=== PATIENT | female | born 1975 | race Caucasian/White ===

== ENCOUNTER 2022-07-03 17:05 | Inpatient (IN) | payer OTHER, SELFPAY ==
--- NOTE | 2022-07-03 17:36 | ED.GENADULT ---
HPI - General Adult General Chief complaint: Psychiatric Symptoms <BASSAM Mcgovern - Last Filed: 07/03/22 18:31> Stated complaint: crisis <BASSAM Mcgovern Last Filed: 07/03/22 18:31> Time Seen by Provider: 07/03/22 17:22 <BASSAM Mcgovern Last Filed: 07/03/22 18:31> Source: patient <BASSAM Mcgovern Last Filed: 07/03/22 18:31> Mode of arrival: ambulatory <BASSAM Mcgovern Last Filed: 07/03/22 18:31> Limitations: no limitations <BASSAM Mcgovern Last Filed: 07/03/22 18:31> History of Present Illness HPI narrative: 36-year-old female history of anxiety and depression presenting to the emergency department complaints of anxiety, depression, intermittent visual and auditory hallucinations, intermittent suicidal thoughts without particular plan worsening over the past few months. Patient reports increasing life stressors reports that her ex- hung himself and her brother recently . Patient very tearful, reports she is having hard time with coping. Patient also mentioned she was on psychiatric medications however her PCP dropped her as a patient and has not been prescribing her her medications. She has not followed by Psychiatry or therapist. She reports that time she becomes short of breath when she has anxiety attacks however denies any other medical complaints. Not short of breath at this time. Patient denies homicidal ideation. No tactile hallucinations. Denies drugs, alcohol and tobacco <BASSAM Mcgovern Last Filed: 07/03/22 18:31> Related Data Home medications: Home Medications Medication Instructions Recorded Confirmed bupropion HCl 300 mg 24 hr tablet, 300 mg PO QAM 07/03/22 07/03/22 extended release calcium carbonate 500 mg-vitamin 2 tab PO QAM 07/03/22 07/03/22 D3 10 mcg (400 unit) tablet (Calcium 500 With D) clonazepam 0.5 mg tablet 0.25 mg PO TID 07/03/22 07/03/22 gabapentin 300 mg capsule 300 mg PO BID 07/03/22 07/03/22 lamotrigine 100 mg tablet 100 mg PO BID 07/03/22 07/03/22 quetiapine 100 mg tablet 100 mg PO BID 07/03/22 07/03/22 <BASSAM Mcgovern Last Filed: 07/03/22 18:31> Allergies/adverse reactions: Allergies Allergy/AdvReac Type Severity Reaction Status Date / Time Penicillins Allergy Swelling Verified 07/03/22 18:56 <BASSAM Mcgovern Last Filed: 07/03/22 18:31> Review of Systems Review of Systems: Constitutional : No Weight loss, No Fever, No Chills, No Fatigue, No Malaise ENT/Mouth : No sore throat, No Rhinorrhea Eyes: No Eye Pain, No Swelling, No Redness Cardiovascular : No Chest Pain, No SOB, No Dyspnea on Exertion, No Orthopnea, No Edema, No Palpitations Respiratory : No Cough, No Sputum, No Wheezing Gastrointestinal : No Nausea, No Vomiting, No Diarrhea, No Constipation, No abdominal Pain, No Hematochezia, No Melena Genitourinary : No Dysuria, No Urinary Frequency, No Hematuria, Musculoskeletal : No joint pain, No Myalgias, No Joint Swelling Skin : No Skin Lesions, No rash Neuro : No Weakness, No Numbness, No Dizziness, No Headache Psych : + Anxiety/Panic, +Depression, + SI, No HI All other systems reviewed and are negative <BASSAM Mcgovern Last Filed: 07/03/22 18:31> Yes all other systems are reviewed and are negative <BASSAM Mcgovern Last Filed: 07/03/22 18:31> COUNTS INCLUDE 234 BEDS AT THE [facility] Past Medical History Attestation statement: The following information was validated with the patient. <BASSAM Mcgovern Last Filed: 07/03/22 18:31> Source: old records reviewed and nursing notes reviewed <BASSAM Mcgovern Last Filed: 07/03/22 18:31> Social History Social History: Social History Alcohol intake: never Smoked in Last 30 Days: Yes Use of substances other than those prescribed or required for medical reasons: Yes Substance Use Type: Marijuana Substance Use Frequency: Occasionally Last Used Substance: Days (ago) Any prior treatment program specific to substance use: No Advance Directives: No Advance Directives Information Provided: No <BASSAM Mcgovern - Last Filed: 07/03/22 18:31> Physical Exam ED Vital Signs: Vital Signs - 24 hr 07/03/22 17:40 07/03/22 20:33 Temperature 97.6 F 97.4 F Pulse Rate 119 H 96 Respiratory Rate 16 16 Blood Pressure 171/105 H 129/94 H Pulse Oximetry 98 99 Oxygen Delivery Method Room Air Room Air BMI result Body Mass Index 39.1 vs <BASSAM Mcgovern - Last Filed: 07/03/22 18:31> Vital Signs - 24 hr 07/03/22 17:40 07/03/22 20:33 Temperature 97.6 F 97.4 F Pulse Rate 119 H 96 Respiratory Rate 16 16 Blood Pressure 171/105 H 129/94 H Pulse Oximetry 98 99 Oxygen Delivery Method Room Air Room Air BMI result Body Mass Index 39.1 <Terrance Lockwood MD - Last Filed: 07/03/22 22:24> Appearance: Alert.? Oriented X3.? No acute distress.? Head: Normocephalic, atraumatic, no step-offs or deformities Eyes: Pupils equal, round and reactive to light.? ENT: Pharynx normal.? Neck: Normal inspection.? Neck supple.? CVS: Normal heart rate and rhythm.? Pulses normal.? Respiratory: No respiratory distress.? Breath sounds normal.? Abdomen: Soft and nontender.? Skin: Skin warm and dry.? Normal skin color.? Normal skin turgor.? Extremities: No lower extremity edema.? No calf ttp. 5/5 strength to bilateral upper and lower extremities Neuro: Oriented X 3.? No motor deficit.? No sensory deficit. CN 2-12 intact <BASSAM Mcgovern Last Filed: 07/03/22 18:31> Course Reevaluation(s) Reevaluation #1: CBC within normal limits. Chemistry unremarkable. UA without infection. Urine toxicology positive for benzodiazepines and marijuana. Negative ethanol. COVID negative At this time patient will be placed into observation to allow more time to be evaluated by the care team. At time observation was started patient common cooperative no acute distress will continue to monitor <BASSAM Mcgovern - Last Filed: 07/03/22 18:31> Time: 18:30 <BASSAM Mcgovern - Last Filed: 07/03/22 18:31> Reevaluation #2: patient is inpatient bed search <Terrance Lockwood MD - Last Filed: 07/03/22 22:24> Time: 22:24 <Terrance Lockwood MD - Last Filed: 07/03/22 22:24> Medications Administered Generic Name Dose Route Start Last Admin Trade Name Freq PRN Reason Stop Dose Admin Clonazepam 0.25 mg 07/03/22 21:00 07/03/22 20:24 Clonazepam 0.5 Mg Tablet PO 0.25 mg TID MEET Administration Gabapentin 300 mg 07/03/22 21:00 07/03/22 20:24 Gabapentin 300 Mg Capsule PO 300 mg BID MEET Administration Lamotrigine 100 mg 07/03/22 21:00 07/03/22 20:24 Lamotrigine 100 Mg Tablet PO 100 mg BID MEET Administration Quetiapine Fumarate 100 mg 07/03/22 21:00 07/03/22 20:24 Quetiapine Fumarate 100 Mg Tablet PO 100 mg BID MEET Administration Discontinued Medications Generic Name Dose Route Start Last Admin Trade Name Freq PRN Reason Stop Dose Admin Lorazepam 1 mg 07/03/22 18:30 07/03/22 18:51 Lorazepam 1 Mg Tablet PO 07/03/22 18:31 1 mg ONCE ONE Administration <BASSAM Mcgovern - Last Filed: 07/03/22 18:31> Medications Administered Generic Name Dose Route Start Last Admin Trade Name Freq PRN Reason Stop Dose Admin Clonazepam 0.25 mg 07/03/22 21:00 07/03/22 20:24 Clonazepam 0.5 Mg Tablet PO 0.25 mg TID MEET Administration Gabapentin 300 mg 07/03/22 21:00 07/03/22 20:24 Gabapentin 300 Mg Capsule PO 300 mg BID MEET Administration Lamotrigine 100 mg 07/03/22 21:00 07/03/22 20:24 Lamotrigine 100 Mg Tablet PO 100 mg BID MEET Administration Quetiapine Fumarate 100 mg 07/03/22 21:00 07/03/22 20:24 Quetiapine Fumarate 100 Mg Tablet PO 100 mg BID MEET Administration Discontinued Medications Generic Name Dose Route Start Last Admin Trade Name Freq PRN Reason Stop Dose Admin Lorazepam 1 mg 07/03/22 18:30 07/03/22 18:51 Lorazepam 1 Mg Tablet PO 07/03/22 18:31 1 mg ONCE ONE Administration <Terrance Lockwood MD - Last Filed: 07/03/22 22:24> Medical Decision Making Medical Decision Making [facility] Narrative: 1735 46-year-old female presents with anxiety, depression, intermittent suicidal ideation and hallucinations for the past few months worsening. Patient lacking outpatient providers. Physical exam benign however patient tearful. Concerns for anxiety, depression versus complicated grieving. Unlikely bipolar, schizophrenia. Will rule out polysubstance abuse. Plan medical clearance evaluation by behavioral health. Placed on a Section 12 <BASSAM Mcgovern - Last Filed: 07/03/22 18:31> Differential Diagnosis Differential Diagnoses: The differential diagnosis associated with the presentation includes <BASSAM Mcgovern - Last Filed: 07/03/22 18:31> Concerns for anxiety, depression versus complicated grieving. Unlikely bipolar, schizophrenia. Will rule out polysubstance abuse. <BASSAM Mcgovern - Last Filed: 07/03/22 18:31> Admission/Observation Consideration of admission/observation: Escalation of care including admission/observation considered <BASSAM Mcgovern - Last Filed: 07/03/22 18:31> Likely inpatient psychiatric admission <BASSAM Mcgovern - Last Filed: 07/03/22 18:31> Lab Data Result Diagrams: 07/03/22 17:48 07/03/22 17:48 <BASSAM Mcgovern - Last Filed: 07/03/22 18:31> Labs: Lab Results 07/03/22 07/03/22 07/03/22 Range/Units 17:47 17:47 17:48 WBC 10.2 (4.8-10.8) X10*3/uL RBC 4.35 (4.20-5.50) X10*6/uL Hgb 12.6 (12.0-16.0) g/dl Hct 39.2 (37.0-47.0) % MCV 90.1 (80.0-98.0) fL MCH 29.0 (27.0-33.0) pg MCHC 32.1 (31.0-35.0) g/dl RDW 13.8 (11.0-16.0) % Plt Count 386 (160-400) X10*3/uL MPV 10.3 (9.4-12.3) fL Immature Gran % (Auto) 0.4 (0.0-0.4) % Neut % (Auto) 66.7 (45-73) % Lymph % (Auto) 23.8 (20-40) % Elbert % (Auto) 5.3 (2-11) % Eos % (Auto) 3.4 (0-4) % Baso % (Auto) 0.4 (0-2) % Lymph # (Auto) 2.4 (1.2-4.9) X10*3/uL Elbert # (Auto) 0.5 (0.1-1.2) X10*3/uL Eos # (Auto) 0.4 (0.0-0.4) X10*3/uL Baso # (Auto) 0.0 (0.0-0.2) X10*3/uL Abs Immat Gran (auto) 0.04 H (0.00-0.03) X10*3/uL Absolute Neuts (auto) 6.8 (2.0-8.3) x10*3/uL Absolute Nucleated RBC 0.000 (0.0-0.012) X10*3/uL Nucleated RBC % (auto) 0.0 (0.0-0.2) /100WBC Sodium (135-145) mmol/L Potassium (3.3-5.1) mmol/L Chloride (96-108) mmol/L Carbon Dioxide (22-29) mmol/L Anion Gap (12-20) BUN (9-16) mg/dL Creatinine (0.5-1.4) mg/dL Estim Creat Clear Calc Estimated GFR Random Glucose (60-115) mg/dL Calcium (8.4-10.2) mg/dL Magnesium (1.6-2.6) mg/dL Total Bilirubin (0.0-1.0) mg/dL AST (5-31) U/L ALT (0-31) U/L Alkaline Phosphatase (39-117) U/L Total Protein (6.5-8.0) g/dL Albumin (3.5-5.0) g/dL Urine Color Yellow Urine Appearance Clear Urine pH 5.5 (5.0-9.0) Ur Specific Munson 1.020 (1.005-1.025) Urine Protein Negative (Neg-Trace) mg/dL Urine Glucose (UA) Negative (Negative) mg/dL Urine Ketones Trace (Negative) mg/dL Urine Blood Negative (Negative) Urine Nitrite Negative (Negative) Ur Leukocyte Esterase Negative (Negative) Urine Opiates Screen Not Detected (Not Detect) Urine Fentanyl Screen Not Detected (Not Detect) Ur Barbiturates Screen Not Detected (Not Detect) Ur Phencyclidine Scrn Not Detected (Not Detect) Ur Amphetamines Screen Not Detected (Not Detect) U Benzodiazepines Scrn POSITIVE H (Not Detect) Urine Cocaine Screen Not Detected (Not Detect) U Marijuana (THC) Screen POSITIVE H (Not Detect) Ethyl Alcohol mg/dL COVID-19 (JEYSON) (Negative) COVID-19 Clin Com 07/03/22 07/03/22 Range/Units 17:48 17:48 WBC (4.8-10.8) X10*3/uL RBC (4.20-5.50) X10*6/uL Hgb (12.0-16.0) g/dl Hct (37.0-47.0) % MCV (80.0-98.0) fL MCH (27.0-33.0) pg MCHC (31.0-35.0) g/dl RDW (11.0-16.0) % Plt Count (160-400) X10*3/uL MPV (9.4-12.3) fL Immature Gran % (Auto) (0.0-0.4) % Neut % (Auto) (45-73) % Lymph % (Auto) (20-40) % Elbert % (Auto) (2-11) % Eos % (Auto) (0-4) % Baso % (Auto) (0-2) % Lymph # (Auto) (1.2-4.9) X10*3/uL Elbert # (Auto) (0.1-1.2) X10*3/uL Eos # (Auto) (0.0-0.4) X10*3/uL Baso # (Auto) (0.0-0.2) X10*3/uL Abs Immat Gran (auto) (0.00-0.03) X10*3/uL Absolute Neuts (auto) (2.0-8.3) x10*3/uL Absolute Nucleated RBC (0.0-0.012) X10*3/uL Nucleated RBC % (auto) (0.0-0.2) /100WBC Sodium 141 (135-145) mmol/L Potassium 4.7 (3.3-5.1) mmol/L Chloride 105 (96-108) mmol/L Carbon Dioxide 26 (22-29) mmol/L Anion Gap 15 (12-20) BUN 16 (9-16) mg/dL Creatinine 0.86 (0.5-1.4) mg/dL Estim Creat Clear Calc 81.2 Estimated GFR > 60 Random Glucose 96 (60-115) mg/dL Calcium 9.8 (8.4-10.2) mg/dL Magnesium 2.0 (1.6-2.6) mg/dL Total Bilirubin 0.4 (0.0-1.0) mg/dL AST 17 (5-31) U/L ALT 17 (0-31) U/L Alkaline Phosphatase 155 H (39-117) U/L Total Protein 6.9 (6.5-8.0) g/dL Albumin 4.4 (3.5-5.0) g/dL Urine Color Urine Appearance Urine pH (5.0-9.0) Ur Specific Munson (1.005-1.025) Urine Protein (Neg-Trace) mg/dL Urine Glucose (UA) (Negative) mg/dL Urine Ketones (Negative) mg/dL Urine Blood (Negative) Urine Nitrite (Negative) Ur Leukocyte Esterase (Negative) Urine Opiates Screen (Not Detect) Urine Fentanyl Screen (Not Detect) Ur Barbiturates Screen (Not Detect) Ur Phencyclidine Scrn (Not Detect) Ur Amphetamines Screen (Not Detect) U Benzodiazepines Scrn (Not Detect) Urine Cocaine Screen (Not Detect) U Marijuana (THC) Screen (Not Detect) Ethyl Alcohol < 10 mg/dL COVID-19 (JEYSON) Negative (Negative) COVID-19 Clin Com See Note <BASSAM Mcgovern - Last Filed: 07/03/22 18:31> Lab Results 07/03/22 07/03/22 07/03/22 Range/Units 17:47 17:47 17:48 WBC 10.2 (4.8-10.8) X10*3/uL RBC 4.35 (4.20-5.50) X10*6/uL Hgb 12.6 (12.0-16.0) g/dl Hct 39.2 (37.0-47.0) % MCV 90.1 (80.0-98.0) fL MCH 29.0 (27.0-33.0) pg MCHC 32.1 (31.0-35.0) g/dl RDW 13.8 (11.0-16.0) % Plt Count 386 (160-400) X10*3/uL MPV 10.3 (9.4-12.3) fL Immature Gran % (Auto) 0.4 (0.0-0.4) % Neut % (Auto) 66.7 (45-73) % Lymph % (Auto) 23.8 (20-40) % Elbert % (Auto) 5.3 (2-11) % Eos % (Auto) 3.4 (0-4) % Baso % (Auto) 0.4 (0-2) % Lymph # (Auto) 2.4 (1.2-4.9) X10*3/uL Elbert # (Auto) 0.5 (0.1-1.2) X10*3/uL Eos # (Auto) 0.4 (0.0-0.4) X10*3/uL Baso # (Auto) 0.0 (0.0-0.2) X10*3/uL Abs Immat Gran (auto) 0.04 H (0.00-0.03) X10*3/uL Absolute Neuts (auto) 6.8 (2.0-8.3) x10*3/uL Absolute Nucleated RBC 0.000 (0.0-0.012) X10*3/uL Nucleated RBC % (auto) 0.0 (0.0-0.2) /100WBC Sodium (135-145) mmol/L Potassium (3.3-5.1) mmol/L Chloride (96-108) mmol/L Carbon Dioxide (22-29) mmol/L Anion Gap (12-20) BUN (9-16) mg/dL Creatinine (0.5-1.4) mg/dL Estim Creat Clear Calc Estimated GFR Random Glucose (60-115) mg/dL Calcium (8.4-10.2) mg/dL Magnesium (1.6-2.6) mg/dL Total Bilirubin (0.0-1.0) mg/dL AST (5-31) U/L ALT (0-31) U/L Alkaline Phosphatase (39-117) U/L Total Protein (6.5-8.0) g/dL Albumin (3.5-5.0) g/dL Urine Color Yellow Urine Appearance Clear Urine pH 5.5 (5.0-9.0) Ur Specific Munson 1.020 (1.005-1.025) Urine Protein Negative (Neg-Trace) mg/dL Urine Glucose (UA) Negative (Negative) mg/dL Urine Ketones Trace (Negative) mg/dL Urine Blood Negative (Negative) Urine Nitrite Negative (Negative) Ur Leukocyte Esterase Negative (Negative) Urine Opiates Screen Not Detected (Not Detect) Urine Fentanyl Screen Not Detected (Not Detect) Ur Barbiturates Screen Not Detected (Not Detect) Ur Phencyclidine Scrn Not Detected (Not Detect) Ur Amphetamines Screen Not Detected (Not Detect) U Benzodiazepines Scrn POSITIVE H (Not Detect) Urine Cocaine Screen Not Detected (Not Detect) U Marijuana (THC) Screen POSITIVE H (Not Detect) Ethyl Alcohol mg/dL COVID-19 ([facility]) (Negative) COVID-19 Clin Com 07/03/22 07/03/22 Range/Units 17:48 17:48 WBC (4.8-10.8) X10*3/uL RBC (4.20-5.50) X10*6/uL Hgb (12.0-16.0) g/dl Hct (37.0-47.0) % MCV (80.0-98.0) fL MCH (27.0-33.0) pg MCHC (31.0-35.0) g/dl RDW (11.0-16.0) % Plt Count (160-400) X10*3/uL MPV (9.4-12.3) fL Immature Gran % (Auto) (0.0-0.4) % Neut % (Auto) (45-73) % Lymph % (Auto) (20-40) % Elbert % (Auto) (2-11) % Eos % (Auto) (0-4) % Baso % (Auto) (0-2) % Lymph # (Auto) (1.2-4.9) X10*3/uL Elbert # (Auto) (0.1-1.2) X10*3/uL Eos # (Auto) (0.0-0.4) X10*3/uL Baso # (Auto) (0.0-0.2) X10*3/uL Abs Immat Gran (auto) (0.00-0.03) X10*3/uL Absolute Neuts (auto) (2.0-8.3) x10*3/uL Absolute Nucleated RBC (0.0-0.012) X10*3/uL Nucleated RBC % (auto) (0.0-0.2) /100WBC Sodium 141 (135-145) mmol/L Potassium 4.7 (3.3-5.1) mmol/L Chloride 105 (96-108) mmol/L Carbon Dioxide 26 (22-29) mmol/L Anion Gap 15 (12-20) BUN 16 (9-16) mg/dL Creatinine 0.86 (0.5-1.4) mg/dL Estim Creat Clear Calc 81.2 Estimated GFR > 60 Random Glucose 96 (60-115) mg/dL Calcium 9.8 (8.4-10.2) mg/dL Magnesium 2.0 (1.6-2.6) mg/dL Total Bilirubin 0.4 (0.0-1.0) mg/dL AST 17 (5-31) U/L ALT 17 (0-31) U/L Alkaline Phosphatase 155 H (39-117) U/L Total Protein 6.9 (6.5-8.0) g/dL Albumin 4.4 (3.5-5.0) g/dL Urine Color Urine Appearance Urine pH (5.0-9.0) Ur Specific Munson (1.005-1.025) Urine Protein (Neg-Trace) mg/dL Urine Glucose (UA) (Negative) mg/dL Urine Ketones (Negative) mg/dL Urine Blood (Negative) Urine Nitrite (Negative) Ur Leukocyte Esterase (Negative) Urine Opiates Screen (Not Detect) Urine Fentanyl Screen (Not Detect) Ur Barbiturates Screen (Not Detect) Ur Phencyclidine Scrn (Not Detect) Ur Amphetamines Screen (Not Detect) U Benzodiazepines Scrn (Not Detect) Urine Cocaine Screen (Not Detect) U Marijuana (THC) Screen (Not Detect) Ethyl Alcohol < 10 mg/dL COVID-19 ([facility]) Negative (Negative) COVID-19 Clin Com See Note <Terrance Lockwood MD - Last Filed: 07/03/22 22:24> Core Measures AMI core measures followed: Yes <BASSAM Mcgovern - Last Filed: 07/03/22 18:31> Measure exclusions: not indicated <BASSAM Mcgovern - Last Filed: 07/03/22 18:31> Discharge Plan Discharge Clinical Impression: Depression, Suicidal ideation, Acute anxiety, Complicated grieving <BASSAM Mcgovern - Last Filed: 07/03/22 18:31> Patient Disposition: Still a Patient <BASSAM Mcgovern - Last Filed: 07/03/22 18:31> Prescriptions: No Action clonazepam 0.5 mg tablet 0.25 mg PO TID quetiapine 100 mg tablet 100 mg PO BID gabapentin 300 mg capsule 300 mg PO BID lamotrigine 100 mg tablet 100 mg PO BID bupropion HCl 300 mg tablet extended release 24 hr 300 mg PO QAM calcium carbonate-vitamin D3 [Calcium 500 With D] 500 mg-10 mcg (400 unit) tablet 2 tab PO QAM <BASSAM Mcgovern - Last Filed: 07/03/22 18:31> Interventions: [place]-Suicide Risk Severity Scale Last Done: 07/03/22 18:42 <BASSAM Mcgovern - Last Filed: 07/03/22 18:31>
[2022-07-03 17:40] VITALS: BP 171/105; PULSE 119; RESP 16; TEMP 36.4; O2SAT 98; BMI 39.1
[2022-07-03 17:54] LABS: MANUAL DIFF FLAG NO
[2022-07-03 17:56] LABS: Basophils Percent Auto 0.4 % (0-2); Eosinophils Absolute Auto 0.4 X10*3/uL (0.0-0.4); Eosinophils Percent Auto 3.4 % (0-4); Hematocrit 39.2 % (37.0-47.0); Hemoglobin 12.6 g/dl (12.0-16.0); Imm Gran Abs Auto 0.04 X10*3/uL (0.00-0.03); Imm Gran Pct Auto 0.4 % (0.0-0.4); Lymphocytes Absolute Auto 2.4 X10*3/uL (1.2-4.9); Lymphocytes Percent Auto 23.8 % (20-40); Mean Corpuscular HGB Conc 32.1 g/dl (31.0-35.0); Mean Corpuscular Volume 90.1 fL (80.0-98.0); Mean Platelet Volume 10.3 fL (9.4-12.3); Monocytes Absolute Auto 0.5 X10*3/uL (0.1-1.2); Monocytes Percent Auto 5.3 % (2-11); Neutrophils Absolute Auto 6.8 x10*3/uL (2.0-8.3); Neutrophils Percent Auto 66.7 % (45-73); Platelet Count 386 X10*3/uL (160-400); Red Blood Count 4.35 X10*6/uL (4.20-5.50); Red Cell Distribution Width 13.8 % (11.0-16.0); White Blood Count 10.2 X10*3/uL (4.8-10.8)
[2022-07-03 17:58] LABS: Appearance Urine Clear; Color Urine Yellow; Glucose Urine UA Negative (Negative); Leukocyte Esterase Urine Negative (Negative); Nitrite Urine Negative (Negative); PH 5.5 (5.0-9.0); Urine Blood Negative (Negative); Urine Ketones Trace mg/dL (Negative); Urine Protein Negative (Neg-Trace)
[2022-07-03 18:06] LABS: Amphetamine Screen Urine Not Detected (Not Detect); Barbiturates, Urine Not Detected (Not Detect); Benzodiazepines Screen Urine POSITIVE (Not Detect); Cannabinoid Screen Urine POSITIVE (Not Detect); Cocaine Screen Urine Not Detected (Not Detect); Fentanyl, urine Not Detected (Not Detect); Opiate Screen Urine Not Detected (Not Detect); Phencyclidine Screen Urine Not Detected (Not Detect)
[2022-07-03 18:17] LABS: COVID-19 Test Negative (Negative); IDNOW Serial# 08D9AD1C
[2022-07-03 18:21] LABS: Alanine Aminotransferase 17 U/L (0-31); Albumin Level 4.4 g/dL (3.5-5.0); Alkaline Phosphatase 155 U/L (39-117); Anion Gap 15 (12-20); Aspartate Amino Transferase 17 U/L (5-31); Bilirubin Total 0.4 mg/dL (0.0-1.0); Blood Urea Nitrogen 16 mg/dL (9-16); Calcium 9.8 mg/dL (8.4-10.2); Carbon Dioxide 26 mmol/L (22-29); Chloride 105 mmol/L (96-108); Creatinine Clr Calc Pharmacy 81.2; Estimated Glomerular Filt Rate > 60; Ethanol < 10 mg/dL; Glucose Random 96 mg/dL (60-115); Potassium 4.7 mmol/L (3.3-5.1); Sodium 141 mmol/L (135-145); Total Protein 6.9 g/dL (6.5-8.0)
--- OUTSIDE RECORDS SUMMARY | 2022-07-03 18:31 | XMS_ITS | Continuity of Care Document ---
Author Name Unknown Organization [facility] Address [address] [place] [id number] Care Team Providers Care Tierce Filler Name Role Phone Not on Staff, PCP Primary Care Physician Unavail able Encounter [facility] [place](s): 11/02/19 - 12/02/[address] [address]- [facility] Attending Physician: Ean Stanford Admitting Physician: AdmEan frye Referring Physician: AdmtrEan Allergies, Adverse Reactions, Alerts Substance Reaction Severity Status penicillin Active Immunizations Given and Recorded Vaccine Date Status Refusal Reason influenza virus vaccine, inactivated 01/11/17 Give n Medications buPROPion 300 mg/24 hours (XL) oral tablet, extended release See Instructions, TAKE 1 TABLET BY MOUTH DAILY IN THE AM FOR 30 DAYS, # 30 tablet, 2 Refills, 08/07/19 16:54:00 EDT, [facility] #[id number], 158, cm, 05/11/18 7:52:00 EDT, Height, Dry Weight Start Date: 08/07/19 Status: Ordered buPROPion 300 mg/24 hours (XL) oral tablet, extended release See Instructions, # 30 tablet, TAKE 1 TABLET BY MOUTH DAILY IN THE MORNING, [facility] #[id number] Start Date: 12/13/18 Status: Ordered clonazePAM 0.5 mg oral tablet See Instructions, # 90 tablet, TAKE 1 TABLET BY MOUTH THREE TIMES DAILY NEEDED FOR ANXIETY, [facility] #[id number] Start Date: 10/24/18 Status: Ordered clonazePAM 0.5 mg oral tablet See Instructions, TAKE 1 TABLET BY MOUTH THREE TIMES DAILY NEEDED FOR ANXIETY, # 90 tablet, 0 Refills, Soft Stop, 05/18/19 7:00:00 EDT, [facility] #[id number], DO NOT FILL BEFORE 05/18/2019, 158, cm, 05/11/18 7:52:00 EDT, Height, 91.9, kg, 07/01... Start Date: 05/18/19 Status: Ordered clonazePAM 0.5 mg oral tablet 1 tablet = 0.5 mg, By Mouth, 3 times a day, PRN Anxiety, # 90 tablet, 1 Refills, Maintenance, 11/20/19 15:43:00 EDT, Tablet, [facility] #[id number], DO NOT FILL BEFORE 08/18/2019, 158, cm, 05/11/18 7:52:00 EDT, Height, Dry Weight Start Date: 11/20/19 Stop Date: 01/19/20 Status: Ordered cloNIDine 0.1 mg oral tablet See Instructions, TAKE 1 TABLET BY MOUTH EVERY MORNING AND 2 TABLETS EVERY NIGHT AT BEDTIME, # 90 tablet, Refills 1, Tot. Refills 1, 11/20/19 15:43:00 EDT, Instructions Replace Required Details, Route to Pharmacy Electronically, [facility] #... Start Date: 11/20/19 Status: Ordered docusate sodium 100 mg oral capsule 100 mg, 1, capsule, By Mouth, 2 times a day, PRN, # 60 capsule, Refills 1, Tot. Refills 1, Maintenance, for constipation, 02/18/17 14:41:08, Route to Pharmacy Electronically, [id number], [facility] [id number] Start Date: 02/18/17 Stop Date: 03/20/17 Status: Ordered Ortho Tri-Cyclen Lo oral tablet 1 tablet, By Mouth, Daily, # 84 tablet, 4 Refills, Maintenance, 05/22/19 8:00:00 EDT, Tablet, [facility] #[id number], 1 tablet By Mouth Daily, 158, cm, 05/11/18 7:52:00 EDT, Height, 91.9, kg, 07/29/17 1:44:00 EDT, Dry Weight Start Date: 05/22/19 Status: Ordered Paragard IUD See Instructions, # 1 units, Refills 0, Tot. Refills 0, Maintenance, see instructions, 07/30/17 8:17:42 EDT, Compound Start Date: 07/30/17 Status: Ordered Multivitamins with Folic Acid 1 mg oral capsule 1 capsule, By Mouth, Daily, # 90 tablet, 6 Refills, Maintenance, 01/11/17 10:41:02, Capsule, 1 capsule By Mouth Daily Start Date: 01/11/17 Status: Ordered QUEtiapine 50 mg oral tablet 1 tablet, By Mouth, 2 times a day, # 60 tablet, 1 Refills, Maintenance, 11/20/19 15:42:00 EDT, [facility] #[id number], 158, cm, 05/11/18 7:52:00 EDT, Height, Dry Weight Start Date: 11/20/19 Stop Date: 01/19/20 Status: Ordered sertraline 100 mg oral tablet 2 tablet, By Mouth, Daily, # 60 tablet, 1 Refills, Maintenance, 11/20/19 15:43:00 EDT, [facility] #[id number], 158, cm, 05/11/18 7:52:00 EDT, Height, Dry Weight Start Date: 11/20/19 Stop Date: 01/19/20 Status: Ordered Wellbutrin XL 300 mg/24 hours oral tablet, extended release 1 tablet = 300 mg, By Mouth, Daily in AM, # 30 tablet, 1 Refills, Maintenance, 11/20/19 15:42:00 EDT, ER Tablet, [facility] #[id number], 158, cm, 05/11/18 7:52:00 EDT, Height, Dry Weight Start Date: 11/20/19 Stop Date: 01/19/20 Status: Ordered Problem List Condition Effective Dates Status Health Status Inform ant AMA - advanced maternal age( Confirmed) 1 07/28/17 Active Anxiety(Confirmed) Active Depression(Confirmed) Active PTSD (post-traumatic stress disorder)(Confirmed) Active Gestational HTN(Confirmed) Active 1Problem added by [place] [place] Social History Social History Type Response Smoking Status Never smoker; Tobacc o user in household: No entered on: 07/28/17 Sex
--- OUTSIDE RECORDS SUMMARY | 2022-07-03 18:31 | XMS_ITS | Continuity of Care Document ---
Author Name Unknown Organization [facility] ter Address [address] [place] [address]- Care Team Providers Care Tube Trailer Filler Name Role Phone Not on Staff, PCP Primary Care Physician Unavail able Encounter [facility] [place] Date(s): 04/09/22 - 05/31/[address] [address] Attending Physician: Maite Smith DO Admitting Physician: Maite Smith DO Referring Physician: Maite Smith DO Allergies, Adverse Reactions, Alerts Substance Reaction Severity Status penicillin Active Immunizations Given and Recorded Vaccine Date Status Refusal Reason influenza virus vaccine, inactivated 01/11/17 Give n Medications clonazePAM 0.5 mg oral tablet 1 tablet = 0.5 mg, By Mouth, 3 times a day, PRN Anxiety, # 90 tablet, 1 Refills, Maintenance, 11/20/19 15:43:00 EDT, Tablet, [facility] #[id number], DO NOT FILL BEFORE 08/18/2019, 158, cm, 05/11/18 7:52:00 EDT, Height, Dry Weight Start Date: 11/20/19 Stop Date: 01/19/20 Status: Ordered cloNIDine 0.1 mg oral tablet See Instructions, TAKE 1 TABLET BY MOUTH EVERY MORNING AND 2 TABLETS EVERY NIGHT AT BEDTIME, # 90 tablet, Refills 1, Tot. Refills 1, 11/20/19 15:43:00 EDT, Instructions Replace Required Details, Route to Pharmacy Electronically, [facility] #... Start Date: 11/20/19 Status: Ordered levothyroxine 0.025 mg oral tablet 1 tablet = 25 mcg, By Mouth, Daily, # 30 tablet, 0 Refills, Maintenance, 06/23/20 23:11:00 EDT, Tablet, Partial fill upon patient request if the prescription is for a schedule II opioid drug. Start Date: 06/23/20 Status: Ordered Paragard IUD See Instructions, # 1 units, Refills 0, Tot. Refills 0, Maintenance, see instructions, 07/30/17 8:17:42 EDT, Compound Start Date: 07/30/17 Status: Ordered QUEtiapine 50 mg oral tablet 2 tablet = 100 mg, By Mouth, Daily at bedtime, # 60 tablet, 1 Refills, Maintenance, 11/20/19 15:42:00 EDT, [facility] #[id number], 158, cm, 05/11/18 7:52:00 EDT, Height, Dry Weight Start Date: 11/20/19 Stop Date: 01/19/20 Status: Ordered sertraline 100 mg oral tablet 2 tablet, By Mouth, Daily, # 60 tablet, 1 Refills, Maintenance, 11/20/19 15:43:00 EDT, [facility] #[id number], 158, cm, 05/11/18 7:52:00 EDT, Height, Dry Weight Start Date: 11/20/19 Stop Date: 01/19/20 Status: Ordered Mai-Hk-Zbcdqblc oral tablet 1 tablet, By Mouth, Daily, # 84 tablet, 2 Refills, Maintenance, 07/09/20 8:05:00 EDT, [facility] #[id number], 84, TAKE 1 TABLETS BY MOUTH ONCE DAILY, 160, cm, 06/26/20 15:52:00 EDT, Height, 82, kg, 06/23/20 21:28:00 EDT, Dry Weight Start Date: 07/09/20 Status: Ordered Wellbutrin XL 300 mg/24 hours oral tablet, extended release 1 tablet = 300 mg, By Mouth, Daily in AM, # 30 tablet, 1 Refills, Maintenance, 11/20/19 15:42:00 EDT, ER Tablet, [facility] #[id number], 158, cm, 05/11/18 7:52:00 EDT, Height, Dry Weight Start Date: 11/20/19 Stop Date: 01/19/20 Status: Ordered Problem List Condition Confirmation Course Effective Dates Status Health St atus Informant Acidosis Confirmed Active AMA - advanced maternal age 1 Confirmed 07/28/17 Active Anxiety Confirmed Active Depression Confirmed Active Diarrhea Confirmed Active PTSD (post-traumatic stress disorder) Confirmed Active Gestational HTN Confirmed Active 1Problem added by Discern Expert @MISC:9 Social History Social History Type Response Smoking Status Never smoker; Tobacc o user in household: No entered on: 07/28/17 Sex Patient Care team information Care Team Personnel Name: Noemy CHAVEZ, Emilia Position: [facility] Nurse Member Role: Primary Care Nurse Name: Denae CHAVEZ, Deann Position: [facility] AMB Nurse Member Role: Primary Care Nurse Name: Not on Staff, PCP Position: [facility] Physician (General Medicine) Member Role: PCP Name: Jeremiah BORREGO, Miguel Angel Position: [facility] Renal MD Member Role: Lifetime Consulting Physician Address: Address: [address] [place] [address] [address] [facility] [address] Name: Alireza Somers MD Position: [facility] Renal MD Member Role: Lifetime Consulting Physician Address: Address: [address] [place] [address] [facility] [address] Care Team Related Persons Name: ADAM BOYLE Address: home [address] [place] [address] Name: DAVID BAINS Address: [employer] Address: home [address] [place] [address] [place] Name: HEATHER BAINS Address: home [address] [place] [address]
--- OUTSIDE RECORDS SUMMARY | 2022-07-03 18:31 | XMS_ITS | Continuity of Care Document ---
Author Name Unknown Organization [facility] Address [address] [place] [address]- Care Team Providers Care Slip Mixer Name Role Phone Not on Staff, PCP Primary Care Physician Unavail able [place] [facility] [place] - 10/04/[address] [address]- [facility] Attending Physician: Not on Staff, Attending MD Allergies, Adverse Reactions, Alerts Substance Reaction Severity Status penicillin Active Immunizations Given and Recorded Vaccine Date Status Refusal Reason influenza virus vaccine, inactivated 01/11/17 Give n Medications buPROPion 300 mg/24 hours (XL) oral tablet, extended release See Instructions, TAKE 1 TABLET BY MOUTH DAILY IN THE AM FOR 30 DAYS, # 30 tablet, 2 Refills, 08/07/19 16:54:00 EDT, [facility] #[id number], 158, cm, 05/11/18 7:52:00 EDT, Height, Dry Weight Start Date: 08/07/19 Status: Ordered buPROPion 300 mg/24 hours (XL) oral tablet, extended release See Instructions, # 30 tablet, TAKE 1 TABLET BY MOUTH DAILY IN THE MORNING, [facility] #[id number] Start Date: 12/13/18 Status: Ordered clonazePAM 0.5 mg oral tablet See Instructions, # 90 tablet, TAKE 1 TABLET BY MOUTH THREE TIMES DAILY NEEDED FOR ANXIETY, [facility] #[id number] Start Date: 10/24/18 Status: Ordered clonazePAM 0.5 mg oral tablet See Instructions, TAKE 1 TABLET BY MOUTH THREE TIMES DAILY NEEDED FOR ANXIETY, # 90 tablet, 0 Refills, Soft Stop, 05/18/19 7:00:00 EDT, [facility] #[id number], DO NOT FILL BEFORE 05/18/2019, 158, cm, 05/11/18 7:52:00 EDT, Height, 91.9, kg, 07/01... Start Date: 05/18/19 Status: Ordered clonazePAM 0.5 mg oral tablet 1 tablet = 0.5 mg, By Mouth, 3 times a day, PRN Anxiety, # 90 tablet, 2 Refills, Maintenance, 08/18/19 7:00:00 EDT, Tablet, [facility] #[id number], DO NOT FILL BEFORE 08/18/2019, 158, cm, 05/11/18 7:52:00 EDT, Height, Dry Weight Start Date: 08/18/19 Stop Date: 11/16/19 Status: Ordered cloNIDine 0.1 mg oral tablet See Instructions, TAKE 1 TABLET BY MOUTH EVERY MORNING AND 2 TABLETS EVERY NIGHT AT BEDTIME, # 90 tablet, Refills 2, Tot. Refills 2, 08/07/19 16:54:00 EDT, Instructions Replace Required Details, Route to Pharmacy Electronically, [facility] #... Start Date: 08/07/19 Status: Ordered docusate sodium 100 mg oral capsule 100 mg, 1, capsule, By Mouth, 2 times a day, PRN, # 60 capsule, Refills 1, Tot. Refills 1, Maintenance, for constipation, 02/18/17 14:41:08, Route to Pharmacy Electronically, [id number], [facility] [id number] Start Date: 02/18/17 Stop Date: 03/20/17 Status: Ordered Ortho Tri-Cyclen Lo oral tablet 1 tablet, By Mouth, Daily, # 84 tablet, 4 Refills, Maintenance, 05/22/19 8:00:00 EDT, Tablet, [facility] #42559, 1 tablet By Mouth Daily, 158, cm, [...] 2 times a day, # 60 tablet, 2 Refills, Maintenance, 08/07/19 16:54:00 EDT, [facility] #[id number], 158, cm, 05/11/18 7:52:00 EDT, Height, Dry Weight Start Date: 08/07/19 Stop Date: 11/05/19 Status: Ordered sertraline 100 mg oral tablet 2 tablet, By Mouth, Daily, # 60 tablet, 2 Refills, Maintenance, 08/07/19 16:54:00 EDT, [facility] #18396, 158, cm, 05/11/18 7:52:00 EDT, Height, Dry Weight Start Date: 08/07/19 Stop Date: 11/05/19 Status: Ordered Wellbutrin XL 300 mg/24 hours oral tablet, extended release 1 tablet = 300 mg, By Mouth, Daily in AM, # 30 tablet, 0 Refills, Maintenance, 06/13/19 13:02:00 EDT, ER Tablet, [facility] #[id number], 158, cm, 05/11/18 7:52:00 EDT, Height, 91.9, kg, 181:44:00 EDT, Dry Weight Start Date: 06/13/19 Stop Date: 07/13/19 Status: Ordered Problem List Condition Effective Dates Status Health Status Inform ant AMA - advanced maternal age( Confirmed) 1 07/28/17 Active Anxiety(Confirmed) Active Depression(Confirmed) Active PTSD (post-traumatic stress disorder)(Confirmed) Active Gestational HTN(Confirmed) Active 1Problem added by Discern Expert @MIS:9 Social History Social History Type Response Smoking Status Never smoker; Tobacc o user in household: No entered on: 07/28/17 Sex
--- OUTSIDE RECORDS SUMMARY | 2022-07-03 18:31 | XMS_ITS | Continuity of Care Document ---
Author Name Unknown Organization [facility] Address [address] [place] [address]- Care Team Providers Care Spine Surgeon Name Role Phone Not on Staff, PCP Primary Care Physician Unavail able Encounter [facility] [place] Date(s): 09/05/19 - 12/02/[address] [address]- [facility] Attending Physician: Not on [...] 30 tablet, 2 Refills, 08/07/19 16:54:00 EDT, [facility] #[id number], 158, cm, 05/11/18 7:52:00 EDT, Height, Dry Weight Start Date: 08/07/19 Status: Ordered buPROPion 300 mg/24 hours (XL) oral tablet, extended release See Instructions, # 30 tablet, TAKE 1 TABLET BY MOUTH DAILY IN THE MORNING, [facility] #[id number] Start Date: 12/13/18 Status: Ordered clonazePAM 0.5 mg oral tablet See Instructions, # 90 tablet, TAKE 1 TABLET BY MOUTH THREE TIMES DAILY NEEDED FOR ANXIETY, [facility] #[id number] Start Date: 10/24/18 Status: Ordered clonazePAM 0.5 mg oral tablet See Instructions, TAKE 1 TABLET BY MOUTH THREE TIMES DAILY NEEDED FOR ANXIETY, # 90 tablet, 0 Refills, Soft Stop, 05/18/19 7:00:00 EDT, [facility] #[id number], DO NOT FILL BEFORE 05/18/2019, 158, cm, 05/11/18 7:52:00 EDT, Height, 91.9, kg, 07/01... Start Date: 05/18/19 Status: Ordered clonazePAM 0.5 mg oral tablet 1 tablet = 0.5 mg, By Mouth, 3 times a day, PRN Anxiety, # 90 tablet, 1 Refills, Maintenance, 11/20/19 15:43:00 EDT, Tablet, [facility] #[id number], DO NOT FILL BEFORE 08/18/2019, 158, cm, 05/11/18 7:52:00 EDT, Height, Dry Weight Start Date: 11/20/19 Stop Date: 01/19/20 Status: Ordered cloNIDine 0.1 mg oral tablet See Instructions, TAKE 1 TABLET BY MOUTH EVERY MORNING AND 2 TABLETS EVERY NIGHT AT BEDTIME, # 90 tablet, Refills 1, Tot. Refills 1, 11/20/19 15:43:00 EDT, Instructions Replace Required Details, Route to Pharmacy Electronically, [facility] #... Start Date: 11/20/19 Status: Ordered docusate sodium 100 mg oral capsule 100 mg, 1, capsule, By Mouth, 2 times a day, PRN, # 60 capsule, Refills 1, Tot. Refills 1, Maintenance, for constipation, 02/18/17 14:41:08, Route to Pharmacy Electronically, [id number], [facility] [id number] Start Date: 02/18/17 Stop Date: 03/20/17 Status: Ordered Ortho Tri-Cyclen Lo oral tablet 1 tablet, By Mouth, Daily, # 84 tablet, 4 Refills, Maintenance, 05/22/19 8:00:00 EDT, Tablet, [facility] #[id number], 1 tablet By Mouth Daily, 158, cm, [...] tablet, 1 Refills, Maintenance, 11/20/19 15:42:00 EDT, [facility] #[id number], 158, cm, 05/11/18 7:52:00 EDT, Height, Dry Weight Start Date: 11/20/19 Stop Date: 01/19/20 Status: Ordered sertraline 100 mg oral tablet 2 tablet, By Mouth, Daily, # 60 tablet, 1 Refills, Maintenance, 11/20/19 15:43:00 EDT, [facility] #[id number], 158, cm, 05/11/18 7:52:00 EDT, Height, Dry Weight Start Date: 11/20/19 Stop Date: 01/19/20 Status: Ordered Wellbutrin XL 300 mg/24 hours oral tablet, extended release 1 tablet = 300 mg, By Mouth, Daily in AM, # 30 tablet, 1 Refills, Maintenance, 11/20/19 15:42:00 EDT, ER Tablet, [facility] #[id number], 158, cm, 05/11/18 7:52:00 EDT, Height, Dry Weight Start Date: 11/20/19 Stop Date: 01/19/20 Status: Ordered Problem List Condition Effective Dates Status Health Status Inform ant AMA - advanced maternal age( Confirmed) 1 07/28/17 Active Anxiety(Confirmed) Active Depression(Confirmed) Active PTSD (post-traumatic stress disorder)(Confirmed) Active Gestational HTN(Confirmed) Active 1Problem added by Discern Expert @[facility]:9 Social History Social History Type Response Smoking Status Never smoker; Tobacc o user in household: No entered on: 07/28/17 Sex
--- OUTSIDE RECORDS SUMMARY | 2022-07-03 18:31 | XMS_ITS | Continuity of Care Document ---
Author Name Unknown Organization [facility] ter Address [address] [place] [address]- Care Team Providers Care Assistant Golf Professional Name Role Phone Not on Staff, PCP Primary Care Physician Unavail able [place] [facility] [place] - 06/28/[address] [address]- Encounter Diagnosis Anxiety(Final) - 06/28/22 Depression(Final) - 06/28/22 Prescription refill(Final) - 06/28/22 Discharge Disposition: A-D/C Home Attending Physician: Doc Turner MD Admitting Physician: Doc Turner MD Referring Physician: Not on Staff, Referring MD Allergies, Adverse Reactions, Alerts Substance Reaction Severity Status penicillin Active Immunizations Given and Recorded Vaccine Date Status Refusal Reason influenza virus vaccine, inactivated 01/11/17 Give n Medications clonazePAM 0.5 mg oral tablet 1 tablet = 0.5 mg, By Mouth, 3 times a day, PRN Anxiety, # 90 tablet, 1 Refills, Maintenance, 11/20/19 15:43:00 EDT, Tablet, [facility] #[id number], DO NOT FILL BEFORE 08/18/2019, 158, cm, 05/11/18 7:52:00 EDT, Height, Dry Weight Start Date: 11/20/19 Stop Date: 01/19/20 Status: Ordered clonazePAM 0.5 mg oral tablet 0.5 tablet = 0.25 mg, By Mouth, 3 times a day, # 20 tablet, 0 Refills, Maintenance, 06/28/22 17:54:00 EDT, Tablet, [facility] #[id number], Partial fill upon patient request if the prescription is for a schedule II opioid drug., 158, cm, 06/28/22... Start Date: 06/28/22 Status: Ordered Paragard IUD See Instructions, # 1 units, Refills 0, Tot. Refills 0, Maintenance, see instructions, 07/30/17 8:17:42 EDT, Compound Start Date: 07/30/17 Status: Ordered QUEtiapine 50 mg oral tablet 2 tablet = 100 mg, By Mouth, Daily at bedtime, # 60 tablet, 1 Refills, Maintenance, 11/20/19 15:42:00 EDT, [facility] #[id number], 158, cm, 05/11/18 7:52:00 EDT, Height, Dry Weight Start Date: 11/20/19 Stop Date: 01/19/20 Status: Ordered SEROquel 100 mg oral tablet 100 mg, 1, tablet, By Mouth, 2 times a day, # 60 tablet, Refills 0, Tot. Refills 0, Maintenance, 06/28/22 17:54:00 EDT, Route to Pharmacy Electronically, [facility] #[id number], Partial fill upon patient request if the prescription is for a sched... Start Date: 06/28/22 Status: Ordered sertraline 100 mg oral tablet 2 tablet, By Mouth, Daily, # 60 tablet, 1 Refills, Maintenance, 11/20/19 15:43:00 EDT, [facility] #[id number], 158, cm, 05/11/18 7:52:00 EDT, Height, Dry Weight Start Date: 11/20/19 Stop Date: 01/19/20 Status: Ordered Lwv-Sg-Bzhnbbni oral tablet 1 tablet, By Mouth, Daily, # 84 tablet, 2 Refills, Maintenance, 07/09/20 8:05:00 EDT, [facility] #02284, 84, TAKE 1 TABLETS BY MOUTH ONCE DAILY, 160, cm, 06/26/20 15:52:00 EDT, Height, 82, kg, 06/23/20 21:28:00 EDT, Dry Weight Start Date: 07/09/20 Status: Ordered Wellbutrin XL 300 mg/24 hours oral tablet, extended release 1 tablet = 300 mg, By Mouth, Daily in AM, # 30 tablet, 1 Refills, Maintenance, 11/20/19 15:42:00 EDT, ER Tablet, [facility] #01226, 158, cm, 05/11/18 7:52:00 EDT, Height, Dry Weight Start Date: 11/20/19 Stop Date: 01/19/20 Status: Ordered Problem List Condition Confirmation Course Effective Dates Status Health St atus Informant Acidosis Confirmed Active AMA - advanced maternal age 1 Confirmed 07/28/17 Active Anxiety Confirmed Active Depression Confirmed Active Diarrhea Confirmed Active PTSD (post-traumatic stress disorder) Confirmed Active Gestational HTN Confirmed Active Severe obesity (BMI 35.0-39.9) with comorbidity Confirmed Active 1Problem added by Discern Expert [place] Vital Signs Most recent to oldest [Reference Range]: 1 2 3 Height 158 cm (06/28/22 6:01 PM) 158 cm (06/28/22 2:53 PM) 158 cm (06/28/22 2:52 PM) Weight 91 kg (06/28/22 6:01 PM) 91 kg (06/28/22 2:53 PM) 91 kg (06/28/22 2:52 PM) Oxygen Saturation [94-100 %] 96 % (06/28/22 6:01 PM) 96 % (06/28/22 2:52 PM) Pulse Rate [55-90 bpm] 92 bpm *H* (06/28/22 6:01 PM) 96 bpm *H* (06/28/22 2:52 PM) Body Mass Index [18.5-24.99 kg/m2] 36.45 kg/m2 *>HHI* (06/28/22 6:01 PM) 36.45 kg/m2 *>HHI* (06/28/22 2:52 PM) Blood Pressure [90-138/55-84 mm Hg] 140/100mm Hg *H* (06/28/22 6:01 PM) 145/95mm Hg *H* (06/28/22 2:52 PM) Respiratory Rate [16-30 br/min] 20 br/min (06/28/22 6:01 PM) 18 br/min (06/28/22 2:52 PM) Temperature [96.8-100.4 DegF] 98.4 DegF (06/28/22 6:01 PM) 98.2 DegF (06/28/22 2:52 PM) Mode of Delivery (Oxygen) Room air (06/28/22 6:01 PM) Room air (06/28/22 2:52 PM) Blood pressure sites Arm, right (06/28/22 6:01 PM) Arm, left (06/28/22 2:52 PM) Temperature Route Oral (06/28/22 6:01 PM) Oral (06/28/22 2:52 PM) Dry Weight 91 kg (06/28/22 6:01 PM) 91 kg (06/28/22 2:53 PM) 91 kg (06/28/22 2:52 PM) Social History Social History Type Response Smoking Status Former smoker, quit more than 30 days ago entered on: 06/28/22 Sex Note * Bushra Canela DO: PERFORM, SIGN, VERIFY Event Display: Patient Education Handout Authored Date: [id number] Patient Care team information Care Team Personnel Name: Emilia Salguero RN Position: [facility] AMB Nurse Member Role: Primary Care Nurse Name: Deann Philippe RN Position: [facility] Nurse Member Role: Primary Care Nurse Name: Not on Staff, PCP Position: [facility] Physician (General Medicine) Member Role: PCP Name: Miguel Angel Daniels MD Position: [facility] Renal MD Member Role: Lifetime Consulting Physician Address: Address: [address] [place] [address] [facility] Name: Alireza Somers MD Position: [facility] Renal MD Member Role: Lifetime Consulting Physician Address: Address: [address] [place] [address] [facility] [address] Name: Isabel Smith Position: [facility] ED RN W/OE and Tasks Member Role: Patient Care Provider Name: Doc Turner MD Position: [facility] ED Medicine MD Member Role: Admitting Physician Address: Address: [address] [place] [id number]- Name: Bushra Canela DO Position: [facility] Resident Member Role: ED Resident Address: Address: [address] [place] [id number] Name: Ree Bae Position: [facility] ED TA [facility] Member Role: Technical Applications Specialist Care Team Related Persons Name: ADAM BOYLE Address: [address] [address] Name: DAVID BAINS Address: [employer] Address: [address] [address] Name: HEATHER BAINS Address: [address] [address]
[2022-07-03] MEDS: LORazepam 1 MG TABLET PO (18:51)
[2022-07-03] MEDS: clonazePAM 0.5 MG TABLET 0.25 MG PO (20:24)
[2022-07-03] MEDS: QUEtiapine Fumarate 100 MG TABLET PO (20:24)
[2022-07-03] MEDS: lamoTRIgine 100 MG TABLET PO (20:24)
[2022-07-03] MEDS: Gabapentin 300 MG CAPSULE PO (20:24)
[2022-07-03 20:33] VITALS: BP 129/94; PULSE 96; RESP 16; TEMP 36.3; O2SAT 99
[2022-07-03] MEDS: Acetaminophen 325 MG TABLET 975 MG PO (22:59)
[2022-07-03] MEDS: OLANZapine 10 MG TABLET PO (22:59)
[2022-07-04 06:16] VITALS: BP 118/88; PULSE 86; RESP 14; TEMP 36.6; O2SAT 96
--- NOTE | 2022-07-04 06:18 | PC.NURSE ---
Patient slept through the night, no distress observed/reported, patient reported racing thought triggering her anxiety, Olanzapine 10 mg PO administered @ 2259 with positive effect, medication compliant, behavior non concerning, disposition per care team is section 12 inpatient bed search, VSS, will continue to monitor.
[2022-07-04] MEDS: clonazePAM 0.5 MG TABLET 0.25 MG PO ×3 (09:11→21:11)
[2022-07-04] MEDS: lamoTRIgine 100 MG TABLET PO ×2 (09:11→21:12)
[2022-07-04] MEDS: buPROPion HCl XL 300 MG TAB.ER.24H PO (09:11)
[2022-07-04] MEDS: Gabapentin 300 MG CAPSULE PO ×2 (09:11→21:12)
[2022-07-04] MEDS: QUEtiapine Fumarate 100 MG TABLET PO ×2 (09:12→21:11)
[2022-07-04] MEDS: Acetaminophen 325 MG TABLET 650 MG PO (09:15)
--- NOTE | 2022-07-04 09:38 | PC.NURSE ---
Pt denies Si at this time. C/O RANGEL medicated at this time.
--- NOTE | 2022-07-04 12:47 | PC.NURSE ---
Pt C/O RANGEL and anxiety. notified. Pt states, I have a lot going on at this time.
[2022-07-04] MEDS: Ibuprofen 800 MG TABLET PO ×2 (13:33→23:03)
[2022-07-04] MEDS: LORazepam 1 MG TABLET PO (13:35)
--- NOTE | 2022-07-04 18:48 | PC.NURSE ---
Pt reporting recent loss of father of her children and her brother. Pt is tearful. Pt reports she holds a lot in. Able to express herself and make her needs known. Pt has a and a small child. 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
[2022-07-04 21:01] VITALS: BP 140/86; PULSE 100; RESP 20; TEMP 36.6; O2SAT 97
[2022-07-04] MEDS: Acetaminophen 325 MG TABLET 975 MG PO (21:12)
[2022-07-04] MEDS: OLANZapine 10 MG TABLET PO (21:25)
[2022-07-05 05:11] VITALS: BP 167/87; PULSE 90; RESP 16; TEMP 36.4; O2SAT 98
--- NOTE | 2022-07-05 06:07 | PC.NURSE ---
Patient slept through the night, no distress observed/reported, patient reported racing thought triggering her anxiety, Olanzapine 10 mg PO administered @ 2124 with positive effect, medication compliant, behavior non concerning, disposition per care team is section 12 inpatient bed search, VSS, will continue to monitor.
[2022-07-05] MEDS: LORazepam 1 MG TABLET 2 MG PO ×2 (06:47→22:27)
--- NOTE | 2022-07-05 06:50 | PC.NURSE ---
Patient reported RANGEL 10/08, BP 167/87 @ 0511, provider notified/it appears like patient is withdrawing from Benzos/ provider notified/ordered Ativan 2 mg PO/administered @ 0647, pending effect, will continue to monitor.
[2022-07-05] MEDS: clonazePAM 0.5 MG TABLET 0.25 MG PO ×3 (08:44→20:19)
[2022-07-05] MEDS: buPROPion HCl XL 300 MG TAB.ER.24H PO (08:47)
[2022-07-05] MEDS: lamoTRIgine 100 MG TABLET PO ×2 (08:47→20:19)
[2022-07-05] MEDS: QUEtiapine Fumarate 100 MG TABLET PO ×2 (08:47→20:19)
[2022-07-05] MEDS: Gabapentin 300 MG CAPSULE PO ×2 (08:47→20:19)
[2022-07-05] MEDS: Calcium + Vitamin D 250 MG TABLET 1000 MG PO (08:53)
[2022-07-05] MEDS: Nicotine 14 MG PATCH.TD24 TRANSDERMA (09:02)
--- NOTE | 2022-07-05 13:27 | PC.NURSE ---
Pt up for meals. No dangerous behaviors noted.
--- NOTE | 2022-07-05 13:34 | MHC.CARE ---
Statewide bedsearch completed. [facility] has beds but are not accepting referrals for review at this time due to unit acuity and staffing. Bedsearch exhausted for today.
[2022-07-05] MEDS: LORazepam 1 MG TABLET PO (16:14)
[2022-07-05 19:55] VITALS: BP 158/103; PULSE 104; RESP 16; TEMP 36.4; O2SAT 98
--- NOTE | 2022-07-06 | ECG_ITS ---
Test Reason : CHECK PROLLONG QT Blood Pressure : / mmHG Vent. Rate : 100 BPM Atrial Rate : 100 BPM P-R Int : 148 ms QRS Dur : 078 ms QT Int : 354 ms P-R-T Axes : 061 043 046 degrees QTc Int : 456 ms Normal sinus rhythm Normal ECG No previous ECGs available Referred By: Paco Grijalva Electronically Signed By:KENTRELL DRAKE
[2022-07-06 05:34] VITALS: BP 146/94; PULSE 115; RESP 18; TEMP 37.1; O2SAT 99
[2022-07-06] MEDS: clonazePAM 0.5 MG TABLET 0.25 MG PO ×3 (08:53→22:10)
[2022-07-06] MEDS: Gabapentin 300 MG CAPSULE PO ×2 (08:53→22:10)
[2022-07-06] MEDS: buPROPion HCl XL 300 MG TAB.ER.24H PO (08:53)
[2022-07-06] MEDS: lamoTRIgine 100 MG TABLET PO (08:54)
[2022-07-06] MEDS: LORazepam 1 MG TABLET 2 MG PO (09:16)
--- NOTE | 2022-07-06 14:50 | PHA.MEDREC ---
Pharmacy Consult ? Medication Reconciliation Pharmacy has completed the medication reconciliation. Reviewed med rec done by nursing
[2022-07-06 16:35] VITALS: BP 183/129; PULSE 97; TEMP 36.1
[2022-07-06 17:00] VITALS: BP 152/92; PULSE 86
[2022-07-06] MEDS: QUEtiapine Fumarate 100 MG TABLET PO (22:07)
[2022-07-06] MEDS: traZODone HCL 50 MG TABLET PO (22:17)
[2022-07-06] MEDS: hydrOXYzine HCL 25 MG TABLET PO (22:17)
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
[2022-07-07] MEDS: traZODone HCL 50 MG TABLET PO (00:32)
[2022-07-07] MEDS: LORazepam 1 MG TABLET 2 MG PO (02:42)
[2022-07-07] MEDS: lamoTRIgine 25 MG TABLET PO (08:41)
[2022-07-07] MEDS: clonazePAM 0.5 MG TABLET 0.25 MG PO (08:41)
[2022-07-07] MEDS: buPROPion HCl XL 300 MG TAB.ER.24H PO (08:42)
[2022-07-07] MEDS: Gabapentin 300 MG CAPSULE PO (08:42)
[2022-07-07 09:09] VITALS: BP 126/91; PULSE 98; RESP 18; TEMP 36.7; O2SAT 97
[2022-07-07 11:00] LABS: Estimated Average Glucose 105 mg/dL; Hemoglobin A1C 122.7423 umol/L; Hemoglobin A1c % 5.3 %
[2022-07-07 11:40] LABS: Cholesterol 201 mg/dL; HDL Cholesterol 50 mg/dL; LDL Cholesterol Calculated 131 mg/dl; Magnesium 1.9 mg/dL (1.6-2.6); Triglycerides 104 mg/dL
[2022-07-07] MEDS: Nicotine 14 MG PATCH.TD24 TRANSDERMA (11:54)
[2022-07-07] MEDS: Nicotine Polacrilex Lozenge 4 MG LOZENGE BUCCAL (11:55)
[2022-07-07 12:07] LABS: Folate 13.6 ng/mL (> or = 4.0); Thyroid Stimulating Hormone 3.95 uIU/mL (0.32-4.0); Vitamin B12 735 pg/mL (200-900)
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
[2022-07-07] MEDS: LORazepam 1 MG TABLET PO (15:14)
[2022-07-07 16:47] VITALS: BP 145/88; PULSE 109
[2022-07-07] MEDS: lamoTRIgine 100 MG TABLET PO (21:13)
[2022-07-07] MEDS: QUEtiapine Fumarate 200 MG TABLET PO (21:13)
[2022-07-07] MEDS: Pregabalin 50 MG CAPSULE PO (21:13)
[2022-07-07] MEDS: clonazePAM 1 MG TABLET PO (21:13)
[2022-07-08 06:00] VITALS: BP 124/73; PULSE 100; RESP 16; TEMP 36.5
[2022-07-08] MEDS: lamoTRIgine 100 MG TABLET PO (08:49)
[2022-07-08] MEDS: clonazePAM 0.5 MG TABLET PO (08:49)
[2022-07-08] MEDS: Cholecalciferol (Vitamin D3) 10 MCG TABLET PO (08:49)
[2022-07-08] MEDS: buPROPion HCl XL 300 MG TAB.ER.24H PO (08:49)
[2022-07-08] MEDS: Gabapentin 600 MG TABLET PO (08:49)
[2022-07-08] MEDS: Nicotine 14 MG PATCH.TD24 TRANSDERMA (08:49)
[2022-07-08] MEDS: Nicotine Polacrilex Lozenge 4 MG LOZENGE BUCCAL ×2 (10:35→14:17)
--- NOTE | 2022-07-08 13:01 | P.PNPSI_ITS ---
Subjective Subjective Date of Service: 07/08/22 Reason For Visit: Bipolar disorder w psychosis, SI, anxiety Subjective Notes: Conditional Voluntary Healthcare Proxy: No Guardianship: No Medical Problems Affecting Mental Status: No Interim History: Reports feeling improved being back on her usual regime. Would like to trial low dose Duryea to augment Lamictal. Considering PHP, however would like to begin her out patient care first and then will call to make her own PHP intake appt. post discharge Discussed the loss of ex today and her main thoughts on how to support her children through this time. Medication Compliance: Yes Side effects from medications: No Attending Groups: Yes Review of Systems Acute medical concerns: No Medical Review of Systems: unchanged Mental Status Exam Mental Status Exam Patient Appearance: Appropriate Patient Orientation: Person, Place, Time and Situation Level of Consciousness: Alert Patient Behavior: Appropriate, Talkative, Cooperative, Good Eye Contact and Crying Mood Description: Depressed Affect Description: Flat and Apprehensive Patient Cognition Impaired: No Ability to Follow Directions: Good Speech Pattern: Spontaneous Speech Memory Description: Intact Hallucinations: None Delusions: Not Present Perceptual Disturbances: Depersonalization and Derealization Thought Process: Racing and Rumination Thought Content: positive for Racing, positive for Perseveration and positive for Suicidal Ideation (denies) Depressive Symptoms: Increased Anxiety, Crying Spells, Loss of Int. in Activity, Feelings of Worthlessness, Hopelessness, Unhappiness, Thoughts of /Suicide (denies), Low Self Esteem and Difficulty Concentrating Abnormal Motor Activity Signs and Symptoms: Restlessness Judgement: Good Diagnostics Vital Signs (24Hr): Vital Signs - 24 hr 07/07/22 16:47 07/08/22 06:00 Temperature 97.7 F Pulse Rate 109 H 100 Respiratory Rate 16 Blood Pressure 145/88 H 124/73 Oxygen Delivery Method Room Air BMI result Body Mass Index 39.1 Labs 07/03/22 17:48 07/03/22 17:48 Labs: Laboratory Results - last 48 hr 07/07/22 07/07/22 08:19 08:19 Estimat Average Glucose 105 Hemoglobin A1c % 5.3 Magnesium 1.9 Triglycerides 104 Cholesterol 201 LDL Cholesterol, Calc 131 HDL Cholesterol 50 Vitamin B12 735 Folate 13.6 TSH 3.95 Free T4 1.10 Medications Medications Current Medications Acetaminophen (Acetaminophen 325 Mg Tablet) 650 mg PO Q6H PRN PRN Reason: Headache/Pain Mild Scale (1-3) Al Hydroxide/Mg Hydroxide (Magnesium Hydrox/Alum Hydrox 30 Ml Oral.Susp) 30 ml PO Q6H PRN PRN Reason: Heartburn/Nausea Bupropion HCl (Bupropion Hcl Xl 300 Mg Tab.Er.24h) 300 mg PO DAILY [facility] Last Admin: 07/08/22 08:49 Dose: 300 mg Clonazepam (Clonazepam 0.5 Mg Tablet) 0.5 mg PO DAILY [facility] Last Admin: 07/08/22 08:49 Dose: 0.5 mg Clonazepam (Clonazepam 1 Mg Tablet) 1 mg PO BEDTIME [facility] Last Admin: 07/07/22 21:13 Dose: 1 mg Gabapentin (Gabapentin 600 Mg Tablet) 600 mg PO DAILY [facility] Last Admin: 07/08/22 08:49 Dose: 600 mg Hydroxyzine HCl (Hydroxyzine Hcl 25 Mg Tablet) 25 mg PO Q6H PRN PRN Reason: Anxiety Last Admin: 07/06/22 22:17 Dose: 25 mg Lamotrigine (Lamotrigine 100 Mg Tablet) 100 mg PO BID [facility] Last Admin: 07/08/22 08:49 Dose: 100 mg Lorazepam (Lorazepam 1 Mg Tablet) 1 mg PO Q6H PRN PRN Reason: anxiety Last Admin: 07/07/22 15:14 Dose: 1 mg Magnesium Hydroxide (Milk Of Magnesia 30 Ml Oral.Susp) 30 ml PO DAILY PRN PRN Reason: Constipation Nicotine (Nicotine 14 Mg Patch.Td24) 14 mg TRANSDERMA DAILY [facility] Last Admin: 07/08/22 08:49 Dose: 14 mg Nicotine Polacrilex (Nicotine Polacrilex Lozenge 4 Mg Lozenge) 4 mg BUCCAL Q2H PRN PRN Reason: Nicotine Cravings Last Admin: 07/08/22 10:35 Dose: 4 mg Pharmacy Consult (Consult Rx Perform Med Rec) 1 each MISCELLANE ONCE PRN PRN Reason: Consult order Pregabalin (Pregabalin 50 Mg Capsule) 50 mg PO BEDTIME [facility] Last Admin: 07/07/22 21:13 Dose: 50 mg Quetiapine Fumarate (Quetiapine Fumarate 200 Mg Tablet) 200 mg PO BEDTIME [facility] Last Admin: 07/07/22 21:13 Dose: 200 mg Vitamin D (Cholecalciferol (Vitamin D3) 10 Mcg Tablet) 10 mcg PO DAILY [facility] Last Admin: 07/08/22 08:49 Dose: 10 mcg Allergies Allergies Allergy/AdvReac Type Severity Reaction Status Date / Time Penicillins Allergy Swelling Verified 07/03/22 18:56 Assessment & Plan Assessment & Plan (1) Bipolar disorder: Status: Acute Code(s): F31.9 - Bipolar disorder, unspecified (2) Acute stress reaction: Status: Acute Code(s): F43.0 - Acute stress reaction (3) PTSD (post-traumatic stress disorder): Status: Acute Code(s): F43.10 - Post-traumatic stress disorder, unspecified Plan 46 yo female, hx of PTSD, Bipolar Disorder, Acute Stress Reaction with the suicide of ex- Apr 2021 via hanging. Pt has been off medications as PCP will no longer prescribe. Pt has been unable to find a therapist and prescriber. Pt reported an increase in anxiety, depression, SI, auditory and visual perceptual alterations. Plan: Re-establish regime-Wellbutrin, Gabapentin, Lamictal, Seroquel, Klonopin Collateral contacts Aftercare planning New PCP appt 09/26/[address] [facility] practice Couples meeting Full milieu participation Hospital Course 07/08/22: Duryea 300 mg HS. Patient educated on: medication risk/benefits Informed Consent: understands Reason for continued inpatient stay Substantial Risk for: rapid decompensation Time Spent With Patient Time: Total time managing care of this patient today ____ minutes.
[2022-07-08 16:34] VITALS: BP 148/85; PULSE 108; TEMP 36.2
[2022-07-08] MEDS: lamoTRIgine 25 MG TABLET 150 MG PO (21:18)
[2022-07-08] MEDS: Lithium Carbonate 300 MG CAPSULE PO (21:18)
[2022-07-08] MEDS: Pregabalin 50 MG CAPSULE PO (21:18)
[2022-07-08] MEDS: QUEtiapine Fumarate 200 MG TABLET PO (21:18)
[2022-07-08] MEDS: clonazePAM 1 MG TABLET PO (21:18)
[2022-07-09] MEDS: LORazepam 1 MG TABLET PO (00:32)
[2022-07-09] MEDS: Gabapentin 600 MG TABLET PO (08:47)
[2022-07-09] MEDS: buPROPion HCl XL 300 MG TAB.ER.24H PO (08:47)
[2022-07-09] MEDS: Cholecalciferol (Vitamin D3) 10 MCG TABLET PO (08:47)
[2022-07-09] MEDS: Nicotine 14 MG PATCH.TD24 TRANSDERMA (08:47)
[2022-07-09] MEDS: clonazePAM 0.5 MG TABLET PO (08:47)
[2022-07-09] MEDS: lamoTRIgine 25 MG TABLET 150 MG PO (08:48)
[2022-07-09 08:50] VITALS: BP 131/84; PULSE 103; RESP 18; O2SAT 97
[2022-07-09 09:19] LABS: Lithium 0.14 mmol/L (0.60-1.20)
--- NOTE | 2022-07-09 16:52 | P.DS_ITS ---
DS: Providers Provider Date of Service: 07/09/22 Date of admission: 07/06/22 14:45 Date of discharge: 07/09/22 Primary care physician: Madan Physician Admitting clinician: Carola Guerra Attending physician on admission: Madan Falcon Attending physician on discharge: Madan Falcon Discharging clinician: Carola Guerra DS: Diagnosis Discharge Diagnosis (1) Bipolar disorder: Status: Acute (2) Acute stress reaction: Status: Resolved (3) PTSD (post-traumatic stress disorder): Status: Acute DS: Medications Discharge Medications Home Medications: Home Medications Medication Instructions Recorded Confirmed calcium carbonate 500 mg-vitamin 2 tab PO QAM 07/03/22 07/03/22 D3 10 mcg (400 unit) tablet (Calcium 500 With D) Previous Rx's Medication Instructions Recorded bupropion HCl 300 mg 24 hr tablet, 300 mg PO QAM #30 tabs 07/09/22 extended release cholecalciferol (vitamin D3) 10 10 mcg PO DAILY #0 tabs 07/09/22 mcg (400 unit) tablet (Vitamin D3) clonazepam 0.5 mg tablet 0.5 mg PO DAILY #14 tabs 07/09/22 clonazepam 1 mg tablet 1 mg PO BEDTIME #14 tabs 07/09/22 gabapentin 600 mg tablet 600 mg PO DAILY #30 tabs 07/09/22 lamotrigine 150 mg tablet 75 mg PO BID #60 tabs 07/09/22 (Lamictal) pregabalin 50 mg capsule (Lyrica) 50 mg PO BEDTIME #14 caps 07/09/22 quetiapine 200 mg tablet 200 mg PO BEDTIME #30 tabs 07/09/22 Mental Status Exam Mental Status Exam Patient Appearance: Appropriate Patient Orientation: Person, Place, Time and Situation Level of Consciousness: Alert Patient Behavior: Appropriate, Talkative, Cooperative, Good Eye Contact and Crying Mood Description: Depressed Affect Description: Flat and Apprehensive Patient Cognition Impaired: No Ability to Follow Directions: Good Speech Pattern: Spontaneous Speech Memory Description: Intact Hallucinations: None Delusions: Not Present Perceptual Disturbances: Depersonalization and Derealization Thought Process: Racing and Rumination Thought Content: positive for Racing, positive for Perseveration and positive for Suicidal Ideation (denies) Depressive Symptoms: Increased Anxiety, Crying Spells, Loss of Int. in Activity, Feelings of Worthlessness, Hopelessness, Unhappiness, Thoughts of /Suicide (denies), Low Self Esteem and Difficulty Concentrating Abnormal Motor Activity Signs and Symptoms: Restlessness Judgement: Good Data Data Completed and Pending Completed studies during hospitalization [Text1]: 07/03/22 07/03/22 07/03/22 17:47 17:47 17:48 WBC 10.2 RBC 4.35 Hgb 12.6 Hct 39.2 MCV 90.1 MCH 29.0 MCHC 32.1 RDW 13.8 Plt Count 386 MPV 10.3 Immature Gran % (Auto) 0.4 Neut % (Auto) 66.7 Lymph % (Auto) 23.8 Johnston % (Auto) 5.3 Eos % (Auto) 3.4 Baso % (Auto) 0.4 Lymph # (Auto) 2.4 Johnston # (Auto) 0.5 Eos # (Auto) 0.4 Baso # (Auto) 0.0 Abs Immat Gran (auto) 0.04 H Absolute Neuts (auto) 6.8 Absolute Nucleated RBC 0.000 Nucleated RBC % (auto) 0.0 Sodium Potassium Chloride Carbon Dioxide Anion Gap BUN Creatinine Estim Creat Clear Calc Estimated GFR Random Glucose Estimat Average Glucose Hemoglobin A1c % Calcium Magnesium Total Bilirubin AST ALT Alkaline Phosphatase Total Protein Albumin Triglycerides Cholesterol LDL Cholesterol, Calc HDL Cholesterol Vitamin B12 Folate TSH Free T4 Urine Color Yellow Urine Appearance Clear Urine pH 5.5 Ur Specific Naylor 1.020 Urine Protein Negative Urine Glucose (UA) Negative Urine Ketones Trace Urine Blood Negative Urine Nitrite Negative Ur Leukocyte Esterase Negative Urine Opiates Screen Not Detected Urine Fentanyl Screen Not Detected Ur Barbiturates Screen Not Detected Ur Phencyclidine Scrn Not Detected Ur Amphetamines Screen Not Detected U Benzodiazepines Scrn POSITIVE H Bogart Urine Cocaine Screen Not Detected U Marijuana (THC) Screen POSITIVE H Ethyl Alcohol COVID-19 ([facility]) COVID-19 Clin Com 07/03/22 07/03/22 07/07/22 17:48 17:48 08:19 WBC RBC Hgb Hct MCV MCH MCHC RDW Plt Count MPV Immature Gran % (Auto) Neut % (Auto) Lymph % (Auto) Johnston % (Auto) Eos % (Auto) Baso % (Auto) Lymph # (Auto) Johnston # (Auto) Eos # (Auto) Baso # (Auto) Abs Immat Gran (auto) Absolute Neuts (auto) Absolute Nucleated RBC Nucleated RBC % (auto) Sodium 141 Potassium 4.7 Chloride 105 Carbon Dioxide 26 Anion Gap 15 BUN 16 Creatinine 0.86 Estim Creat Clear Calc 81.2 Estimated GFR > 60 Random Glucose 96 Estimat Average Glucose 105 Hemoglobin A1c % 5.3 Calcium 9.8 Magnesium 2.0 Total Bilirubin 0.4 AST 17 ALT 17 Alkaline Phosphatase 155 H Total Protein 6.9 Albumin 4.4 Triglycerides Cholesterol LDL Cholesterol, Calc HDL Cholesterol Vitamin B12 Folate TSH Free T4 Urine Color Urine Appearance Urine pH Ur Specific Naylor Urine Protein Urine Glucose (UA) Urine Ketones Urine Blood Urine Nitrite Ur Leukocyte Esterase Urine Opiates Screen Urine Fentanyl Screen Ur Barbiturates Screen Ur Phencyclidine Scrn Ur Amphetamines Screen U Benzodiazepines Scrn Bogart Urine Cocaine Screen U Marijuana (THC) Screen Ethyl Alcohol < 10 COVID-19 ([facility]) Negative COVID-19 Clin Com See Note 07/07/22 07/09/22 08:19 08:10 WBC RBC Hgb Hct MCV MCH MCHC RDW Plt Count MPV Immature Gran % (Auto) Neut % (Auto) Lymph % (Auto) Johnston % (Auto) Eos % (Auto) Baso % (Auto) Lymph # (Auto) Johnston # (Auto) Eos # (Auto) Baso # (Auto) Abs Immat Gran (auto) Absolute Neuts (auto) Absolute Nucleated RBC Nucleated RBC % (auto) Sodium Potassium Chloride Carbon Dioxide Anion Gap BUN Creatinine Estim Creat Clear Calc Estimated GFR Random Glucose Estimat Average Glucose Hemoglobin A1c % Calcium Magnesium 1.9 Total Bilirubin AST ALT Alkaline Phosphatase Total Protein Albumin Triglycerides 104 Cholesterol 201 LDL Cholesterol, Calc 131 HDL Cholesterol 50 Vitamin B12 735 Folate 13.6 TSH 3.95 Free T4 1.10 Urine Color Urine Appearance Urine pH Ur Specific Naylor Urine Protein Urine Glucose (UA) Urine Ketones Urine Blood Urine Nitrite Ur Leukocyte Esterase Urine Opiates Screen Urine Fentanyl Screen Ur Barbiturates Screen Ur Phencyclidine Scrn Ur Amphetamines Screen U Benzodiazepines Scrn Bogart 0.14 L Urine Cocaine Screen U Marijuana (THC) Screen Ethyl Alcohol COVID-19 ([facility]) COVID-19 Clin Com DS: Summary Hospital Course Hospital Course: Admission to adult psychiatry for exacerbation of symptoms of Bipolar Disorder, PTSD, and Acute Grief Reaction with the recent suicide of her ex and attempting to be a support to their two children, ages 26 and 20. Rima identified several psychosocial stressors, including being discharged from her primary care practice and having her medications stopped (except Klonopin) without a clear rationale. Regime was re-established and titrated, pt used the milieu briefly to establish safety and a plan to move forward. She will attend [facility] to continue to process this loss and strengthen her coping skills. Time spent discussing smoking cessation with patient: 3 to 10 minutes Status at Discharge Functional status at discharge: independent ambulation Overall status at discharge: patient is progressing back to baseline Time Spent with Patient Time attestation: Total time managing care of this patient today ____ minutes. Time spent: Greater than 30 minutes Discharge Plan Discharge Anticipated Discharge Date/Time: 07/09/22 12:48 Patient Disposition: Home, Self-Care Discharge Diagnosis: PTSD Bipolar Disorder Grief Reaction Referrals: [facility] [Other] - 07/14/22 11:00 am (After the in- person intake you will be scheduled with future therapy and psychiatric appointment and for your medication management.) Partial Hospitalization Program [facility] [Other] - 3-5 Days (Leora will call you with an intake appointment. ) Physician,None [Primary Care Provider] - 1 Week Discharge Medications: New gabapentin 600 mg Tablet 600 mg PO DAILY Qty: 30 0RF clonazepam 0.5 mg Tablet 0.5 mg PO DAILY Qty: 14 1RF quetiapine 200 mg Tablet 200 mg PO BEDTIME Qty: 30 0RF clonazepam 1 mg Tablet 1 mg PO BEDTIME Qty: 14 1RF cholecalciferol (vitamin D3) [Vitamin D3] 10 mcg (400 unit) Tablet 10 mcg PO DAILY Qty: 0 0RF pregabalin [Lyrica] 50 mg Capsule 50 mg PO BEDTIME Qty: 14 1RF lamotrigine [Lamictal] 150 mg tablet 75 mg PO BID Qty: 60 0RF Continued calcium carbonate-vitamin D3 [Calcium 500 With D] 500 mg-10 mcg (400 unit) tablet 2 tab PO QAM bupropion HCl 300 mg tablet extended release 24 hr 300 mg PO QAM Qty: 30 0RF Discontinued clonazepam 0.5 mg tablet 0.25 mg PO TID quetiapine 100 mg tablet 100 mg PO BID gabapentin 300 mg capsule 300 mg PO BID lamotrigine 100 mg tablet 100 mg PO BID Discharge Orders: Discharge Order (Routine); Ordered 07/09/22 Ordered By: Carola Guerra Diet: Advance to usual diet Activity on Discharge: As tolerated Stand Alone Forms: Patient Portal Discharge page, Community Support Care Plan Goals: Mood and Behavioral Stabilization Health Concerns: Mood and Behavioral Stabilization Plan of Treatment: Ana Rosa LAMAS will call you with out patient appointment information. Take medications as directed Assessment: non suicidal, non homicidal, non psychotic, non manic Discharge Date/Time: 07/09/22 11:56
== END 2022-07-09 11:56 | disposition home or self-care (01) | DRG 885 ==
LOC: HO.ED 18:31 → HO.PM5 07-06 14:48
PROVIDERS: Physician Assistant; Admitting Provider Psychiatry & Neurology Psychiatry; Emergency Provider Emergency Medicine; Visit Provider Clinical Nurse Specialist Psychiatric/Mental Health, Adult
DX: F31.9 Bipolar disorder, unspecified (principal); R45.851 Suicidal ideations; F43.10 Post-traumatic stress disorder, unspecified; F17.210 Nicotine dependence, cigarettes, uncomplicated; F43.0 Acute stress reaction; Z71.6 Tobacco abuse counseling; Z20.822 Contact with and (suspected) exposure to COVID-19; Z88.0 Allergy status to penicillin; Z79.899 Other long term (current) drug therapy
CPT/HCPCS: 36415; 80053; 80061; 80178; 80307; 81003; 82607; 82746; 83036; 83735; 84439; 84443; 85025; 87635; 93005; 99285; S9485

== ENCOUNTER 2022-08-18 12:15 | Outpatient (RCR) | payer OTHER, SELFPAY ==
--- NOTE | 2022-08-05 09:23 | PC.NURSE ---
Rima did not show up to the program this morning. I called Rima and left her a message to call me back.
--- NOTE | 2022-08-05 09:48 | PC.NURSE ---
I called Rima again and left her a message to call me back. I have not heard back from Rima thus, per protocol, I reached out to her spouse Ray who is her emergency contact and left him a message to call me back.
[2022-08-06 11:07] VITALS: BP 108/76; PULSE 88; TEMP 36.9
[2022-08-06 11:09] VITALS: BMI 38.8
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
--- NOTE | 2022-08-06 16:30 | PC.ADMIT ---
Patient is a 47 year old female who was referred to [facility] by [facility] inpatient behavioral health unit where she was admitted d/t increased sxs of Bipolar d/o, PTSD, and acute grief reaction. See Integrative Assessment for more information. She reports she is losing her house at the end of the month. She reports she is selling the house now before it goes into foreclosure. Patient reports she and her have much to do and this is causing increased stress. She is unsure where they are going to live. Patient stated her feels she needs to be at [facility] and she stated she needs to be here as she has been increasingly depressed and having a difficult time getting out of bed as a result. She also reports waking up at night every hour as she is unable to shut down her thoughts as she is ruminating about things. Patient presents with depressed mood and anxious affect. She denied SI. Patient given a copy of her safety plan and I reviewed the plan with her. Awaiting patient prescriber medication list requested. [ End ]
--- NOTE | 2022-08-07 08:28 | HO.PHP ---
The clients called and stated that there was a in the family and Rima will not be attending PHP today.
--- NOTE | 2022-08-07 15:01 | HO.PHP ---
The clients case was reviewed and opened in treatment team
--- NOTE | 2022-08-10 11:41 | P.PNPSP_ITS ---
Subjective Subjective Date of Service: 08/10/22 Reason For Visit: bipolar, PTSD Medical Problems Affecting Mental Status: No Interim History: Increased anxiety, continued depression. Poor sleep. Continued Nightmares. Dissociative symptoms. Has been self isolating since her aunt last week. Racing thoughts. No SI, no safety concerns. Medication Compliance: Yes Side effects from medications: No Attending Groups: Yes Review of Systems Acute medical concerns: No Medical Review of Systems: unchanged Review of Systems Review of Systems Yes all other systems are reviewed and are negative Constitutional: Reports no additional constitutional complaints Mental Status Exam Mental Status Exam Patient Appearance: Appropriate Patient Orientation: Person, Place, Time and Situation Level of Consciousness: Appropriate and Alert Patient Behavior: Appropriate, Cooperative and Good Eye Contact Mood Description: Depressed and Anxious Affect Description: Depressed and Anxious Patient Cognition Impaired: No Ability to Follow Directions: Good Speech Pattern: Clear, Appropriate and Coherent Memory Description: Intact Delusions: Not Present Perceptual Disturbances: Depersonalization and Hallucinations (At baseline, shadows, hearing her name.) Thought Process: Intact Thought Content: positive for Intact Depressive Symptoms: Increased Anxiety, Difficulty Sleeping, Changes in Appetite (poor appetite), Loss of Int. in Activity, Hopelessness, Feelings of Guilt, Unhappiness, Increased Fatigue, Low Self Esteem, Loss of Energy and Difficulty Concentrating Judgement: Fair Diagnostics Vital Signs (24Hr): BMI result Body Mass Index 38.8 Assessment & Plan Assessment & Plan (1) Bipolar disorder: Status: Acute Code(s): F31.9 - Bipolar disorder, unspecified Assessment and Plan: Increased anxiety, continued depression. It was her daughter's 5th birthday over weekend. Neighbors through a surprise democrat. Reports not feeling well enough to talk to people at the democrat. Poor sleep. Reports that she will sleep for several hours, wakes up approximately to a.m.. Will take a p.r.n. Klonopin at that time. States that her sleep is not restful. Continued Nightmares. Discussed prazosin. Upon med reconciliation with program RN, will consider increasing dose to 4 mg. Dissociative symptoms, reports feeling as if she is outside of her body, numb. Has been self isolating since her aunt last week. Continues to struggle with multiple losses. Racing thoughts, excessive worry. Discussed increasing clonazepam to 1 mg b.i.d. in order to help address increased anxiety. We discussed increasing lurasidone at this time. She takes 120 mg, discussed increasing dose to 40 mg. No SI, no safety concerns. (2) PTSD (post-traumatic stress disorder): Status: Acute Code(s): F43.10 - Post-traumatic stress disorder, unspecified (3) Complicated grieving: Status: Acute Code(s): F43.21 - Adjustment disorder with depressed mood Plan 1. Continue with current [facility] plan of care. 2. Increase clonazepam to 1 mg b.i.d.. 3. Increase lorazepam do not to 40 mg daily. 4. Consider increasing prazosin to 4 mg at bedtime, once current dose is confirmed. 5. Continue other medications as currently prescribed. 6. Follow-up as per protocol. Patient educated on: diagnosis, medication risk/benefits and therapeutic strategies Informed Consent: understands Reason for contiued partial hosp. stay Substantial Risk for: harm to self, inability to function, rapid decompensation and med/psych decompensation Certification I certify that partial hospital treatment is medically necessary due to the symptoms and problems resulting from the patient's mental illness and the failure to treat the patient at the partial hospital level of care would likely result in the patient requiring inpatient psychiatric care which could not be prevented at a less intensive level of care. Total time managing care of this patient today ___30_ minutes. Discharge Plan Discharge Attending provider: Eros Jenkins Medications: New lurasidone 40 mg tablet 40 mg PO DAILY Qty: 14 0RF Rx Instructions: must administer with food (at least 350 calories) clonazepam 1 mg tablet 1 mg PO BID Qty: 30 0RF Discontinued clonazepam 0.5 mg Tablet 0.5 mg PO DAILY Qty: 14 1RF clonazepam 1 mg Tablet 1 mg PO BEDTIME Qty: 14 1RF No Action calcium carbonate-vitamin D3 [Calcium 500 With D] 500 mg-10 mcg (400 unit) tablet 2 tab PO QAM gabapentin 600 mg Tablet 600 mg PO DAILY Qty: 30 0RF quetiapine 200 mg Tablet 200 mg PO BEDTIME Qty: 30 0RF cholecalciferol (vitamin D3) [Vitamin D3] 10 mcg (400 unit) Tablet 10 mcg PO DAILY Qty: 0 0RF pregabalin [Lyrica] 50 mg Capsule 50 mg PO BEDTIME Qty: 14 1RF bupropion HCl 300 mg tablet extended release 24 hr 300 mg PO QAM Qty: 30 0RF lamotrigine [Lamictal] 150 mg tablet 75 mg PO BID Qty: 60 0RF Stand Alone Forms: Patient Portal Discharge page
--- NOTE | 2022-08-13 13:18 | HO.PHPPROGNO ---
Subjective Subjective Date of Service: 08/13/22 Reason For Visit: bipolar, PTSD Interim History: Continues with increased anxiety, continued depression. reports a panic attack yesterday despite increased ativan. pt reports poor sleep with racing thoughts, nightmares; she reports a recnt experience of sleep paralysis which made her even more anxious. dissociative symptoms. Has been self isolating since her aunt last week.No SI, no safety concerns. Medication Compliance: Yes Side effects from medications: No Attending Groups: Yes Review of Systems Acute medical concerns: No Medical Review of Systems: unchanged Review of Systems Review of Systems no changes Yes all other systems are reviewed and are negative Constitutional: Reports no additional constitutional complaints Mental Status Exam Mental Status Exam Narrative: Well-developed, overweight female, appears stated age. Anxious mood and affect. No abnormal movements, no tics or tremors, gait/posture normal. Did not appear to be responding to any type of internal stimuli. Tearful during interview. expresses hope for future. Patient Appearance: Appropriate Patient Orientation: Person, Place, Time and Situation Level of Consciousness: Appropriate and Alert Patient Behavior: Appropriate, Cooperative and Good Eye Contact Mood Description: Depressed and Anxious Affect Description: Depressed and Anxious Patient Cognition Impaired: No Ability to Follow Directions: Good Speech Pattern: Clear, Appropriate and Coherent Memory Description: Intact Hallucinations: None Delusions: Not Present Perceptual Disturbances: Depersonalization Thought Process: Intact (reports negative self critical thoughts) and Racing Diagnostics Vital Signs (24Hr): BMI result Body Mass Index 38.8 Assessment & Plan Assessment & Plan (1) Bipolar disorder: Status: Acute Code(s): F31.9 - Bipolar disorder, unspecified (2) PTSD (post-traumatic stress disorder): Status: Acute Code(s): F43.10 - Post-traumatic stress disorder, unspecified (3) Complicated grieving: Status: Acute Code(s): F43.21 - Adjustment disorder with depressed mood Plan Assessment: pt is 47 yo struggling with Bipolar depression, anxiety, panic attacks and continued poor sleep Plan: 1. Continue with current [facility] plan of care. 2. Continue clonazepam to 1 mg b.i.d. 3. add ativan 0.5mg QD prn panic # 5 3. Increase latuda to 60 mg daily take with dinner 4.increasing prazosin to 6 mg at bedtime 5. lamictal 100mg BID 6. Continue other medications as currently prescribed. 6. Follow-up as per protocol. Patient educated on: diagnosis, medication risk/benefits and therapeutic strategies Informed Consent: understands Reason for contiued partial hosp. stay Substantial Risk for: harm to self, inability to function, stable for discharge and rapid decompensation Certification I certify that partial hospital treatment is medically necessary due to the symptoms and problems resulting from the patient's mental illness and the failure to treat the patient at the partial hospital level of care would likely result in the patient requiring inpatient psychiatric care which could not be prevented at a less intensive level of care. Total time managing care of this patient today __30__ minutes. Discharge Plan Discharge Attending provider: Eros Jenkins Medications: New clonazepam 1 mg tablet 1 mg PO BID Qty: 30 0RF prazosin 2 mg capsule 6 mg PO BEDTIME 10 Days Qty: 30 0RF lamotrigine [Lamictal ODT] 100 mg tablet,disintegrating 100 mg PO BID Qty: 20 0RF lurasidone [Latuda] 60 mg tablet 60 mg PO QPM 20 Days Qty: 20 0RF Rx Instructions: Take with dinner daily lorazepam 0.5 mg tablet 0.5 mg PO DAILY PRN (Reason: anxiety / panic) Qty: 5 0RF Discontinued clonazepam 0.5 mg Tablet 0.5 mg PO DAILY Qty: 14 1RF clonazepam 1 mg Tablet 1 mg PO BEDTIME Qty: 14 1RF lamotrigine [Lamictal] 150 mg tablet 75 mg PO BID Qty: 60 0RF No Action pregabalin [Lyrica] 50 mg capsule 75 mg PO BEDTIME Patient Comments: Patient reports increased to 75 mg daily. calcium carbonate-vitamin D3 [Calcium 500 With D] 500 mg-10 mcg (400 unit) tablet 2 tab PO QAM gabapentin 600 mg Tablet 600 mg PO DAILY Qty: 30 0RF quetiapine 200 mg Tablet 200 mg PO BEDTIME Qty: 30 0RF cholecalciferol (vitamin D3) [Vitamin D3] 10 mcg (400 unit) Tablet 10 mcg PO DAILY Qty: 0 0RF Stand Alone Forms: Patient Portal Discharge page
--- NOTE | 2022-08-18 12:57 | PC.NURSE ---
Addendum entered by Abby Topete RN 08/18/22 14:03: Nurse to Nurse done with Flako CHAVEZ in the ER and May in the behavioral health pod. Original Note: Patient came to staff tearful and in distress. Presents with mood instability with AH of many people talking saying Hi and calling her name and VH of shadows of people which are quite distressing to her. She reports SI with plans to cut herself. She also reports she was in the bathtub last night and wanted to cut herself with a razor. She reports having no purpose and questioning why she is here. She feels flooded with memories of the past and has difficulty concentrating and focusing. Patient agreeable to going to the ER for an evaluation. She stated she feels she left the inpatient unit too soon. Dr Taylor aware. Section 12 A obtained. Nasrin Lamar to escort patient to the ER.
--- NOTE | 2022-08-18 14:46 | HO.PHP ---
After group three, [facility] staff checked in with Rima regarding her comments around voices.? PHP staff asked Rima if she spoke with the provider about hearing the voices. Rima said she had not and said she probably should because she is feeling uncomfortable. PHP staff asked Rima if she is feeling unsafe. Rima said so so. [facility] staff suggested that we further review with her clinician. Rima was receptive.
--- NOTE | 2022-08-20 08:17 | HO.PHP ---
I called and left a message with Helene CAMP re client inpt admission and dc from PHP
--- NOTE | 2022-08-20 13:40 | HO.PHP ---
I left a message with Helene Hayes at [facility] . She called back and stated Rima is not her client and she is not in their system.
== END 2022-08-18 23:59 | disposition admitted as inpatient to this hospital (09) ==
LOC: HO.PHPA 12:15
PROVIDERS: Visit Provider Psychiatry & Neurology Psychiatry
DX: F31.9 Bipolar disorder, unspecified (principal); F43.10 Post-traumatic stress disorder, unspecified; F43.21 Adjustment disorder with depressed mood; Z79.899 Other long term (current) drug therapy
CPT/HCPCS: 90791; 90853

== ENCOUNTER 2022-08-18 13:08 | Inpatient (IN) | payer OTHER, SELFPAY ==
--- NOTE | ~2022-08-18 | CT_ITS ---
EXAMINATION: CT HEAD WITHOUT CONTRAST CLINICAL INFORMATION: Concussion in 2019. Presenting symptoms. COMPARISON: None. TECHNIQUE: Contiguous axial imaging was performed from the skullbase to vertex without intravenous administration of contrast. This CT examination was performed using dose optimization techniques as appropriate, variously including the following: *Automated exposure control *Adjustment of mA and/or kV according to patient size (this includes techniques or standardized protocols for targeted exams where dose is matched to indication/reason for exam; i.e. extremities or head) *Use of iterative reconstruction technique DLP: 746 mGy-cm. FINDINGS: The lateral ventricles are disproportionately prominent with a cavum septum pellucidum. The temporal horns of the lateral ventricles are normal in size. The fourth ventricle is normal. The third ventricle is slightly prominent. There is no evidence of acute intracranial hemorrhage or territorial infarction. No abnormal mass effect or midline shift is seen. Mackey to white matter differentiation is well preserved. No extra-axial fluid collections are identified. There is no abnormal attenuation within the brain parenchyma. The osseous structures and soft tissues are normal. The mastoid air cells and visualized portions of the paranasal sinuses are well aerated. CT/CT head/brain wo IV con IMPRESSION: No acute intracranial pathology. Prominence of the lateral ventricles with a cavum septum pellucidum. Findings may be developmental in etiology. The possibility of aqueductal stenosis cannot be conclusively ruled out on the basis of this study. A follow-up MRI of the brain with a cine CSF flow study targeting the cerebral aqueduct could be obtained in follow-up for further assessment.
[2022-08-18 13:26] VITALS: BP 141/87; PULSE 100; TEMP 36.6; O2SAT 100; BMI 83.9
[2022-08-18 14:02] LABS: MANUAL DIFF FLAG NO
[2022-08-18 14:06] LABS: Basophils Absolute Auto 0.1 X10*3/uL (0.0-0.2); Basophils Percent Auto 0.5 % (0-2); Eosinophils Absolute Auto 0.2 X10*3/uL (0.0-0.4); Eosinophils Percent Auto 1.8 % (0-4); Hematocrit 36.5 % (37.0-47.0); Hemoglobin 11.8 g/dl (12.0-16.0); Imm Gran Abs Auto 0.04 X10*3/uL (0.00-0.03); Imm Gran Pct Auto 0.4 % (0.0-0.4); Lymphocytes Absolute Auto 2.5 X10*3/uL (1.2-4.9); Lymphocytes Percent Auto 22.9 % (20-40); Mean Corpuscular HGB Conc 32.3 g/dl (31.0-35.0); Mean Corpuscular Hemoglobin 29.7 pg (27.0-33.0); Mean Corpuscular Volume 91.9 fL (80.0-98.0); Mean Platelet Volume 10.5 fL (9.4-12.3); Monocytes Absolute Auto 0.5 X10*3/uL (0.1-1.2); Monocytes Percent Auto 4.8 % (2-11); Neutrophils Absolute Auto 7.5 x10*3/uL (2.0-8.3); Neutrophils Percent Auto 69.6 % (45-73); Platelet Count 365 X10*3/uL (160-400); Red Blood Count 3.97 X10*6/uL (4.20-5.50); Red Cell Distribution Width 14.7 % (11.0-16.0); White Blood Count 10.7 X10*3/uL (4.8-10.8)
[2022-08-18 14:06] LABS: Appearance Urine Clear; Color Urine Yellow; Glucose Urine UA Negative (Negative); Leukocyte Esterase Urine Negative (Negative); Nitrite Urine Negative (Negative); PH 5.5 (5.0-9.0); Urine Blood Negative (Negative); Urine Ketones Negative (Negative); Urine Protein Negative (Neg-Trace)
[2022-08-18 14:09] LABS: UPreg QC Valid YES; Urine Pregnancy NEGATIVE (NEGATIVE)
--- NOTE | 2022-08-18 14:15 | ED_ITS ---
HPI - Psych General Chief Complaint: Psychiatric Symptoms Stated Complaint: psychiatric symptoms Time Seen by Provider: 08/18/22 13:33 Source: patient Mode of arrival: ambulatory Limitations: no limitations History of Present Illness HPI Narrative: 47 year old female with a history significant for bipolar disorder, PTSD, fibromyalgia, and depression presenting today with worsening depression, hallucinations, and suicidal ideation. She has been under evaluation at an outpatient psychiatric facility for the past month however has felt her depression become more severe, prompting presentation today. Reports visual hallucinations in the form of shadow people and auditory hallucinations with various voices calling her name. Patient is also suicidal with a plan to cut her wrists with razors. Last suicidal thoughts were one month ago- no attempt. Her depression and suicidal ideation are worsened with isolation. No clear relieving factors. Patient admits to regular tobacco and marijuana use. Denies etoh con sumption or illicit drug use. Denies HI. Denies any current medical concerns. Related Data Home Medications Medication Instructions Recorded Confirmed calcium carbonate 500 mg-vitamin 2 tab PO QAM 07/03/22 08/18/22 D3 10 mcg (400 unit) tablet (Calcium 500 With D) pregabalin 50 mg capsule (Lyrica) 75 mg PO BEDTIME 08/10/22 08/18/22 Previous Rx's Medication Instructions Recorded cholecalciferol (vitamin D3) 10 10 mcg PO DAILY #0 tabs 07/09/22 mcg (400 unit) tablet (Vitamin D3) gabapentin 600 mg tablet 600 mg PO DAILY #30 tabs 07/09/22 quetiapine 200 mg tablet 200 mg PO BEDTIME #30 tabs 07/09/22 clonazepam 1 mg tablet 1 mg PO BID #30 tabs 08/10/22 lamotrigine 100 mg disintegrating 100 mg PO BID #20 tabs 08/13/22 tablet (Lamictal ODT) lorazepam 0.5 mg tablet 0.5 mg PO DAILY PRN anxiety / 08/13/22 panic #5 tabs lurasidone 60 mg tablet (Latuda) 60 mg PO QPM 20 days #20 tabs 08/13/22 prazosin 2 mg capsule 6 mg PO BEDTIME 10 days #30 caps 08/13/22 Allergies Allergy/AdvReac Type Severity Reaction Status Date / Time Penicillins Allergy Swelling Verified 08/06/22 11:05 Review of Systems Review of Systems: CONSTITUTIONAL: Denies weight loss, fever and chills. HEENT: Denies changes in vision and hearing. RESPIRATORY: Denies SOB and cough. CV: Denies palpitations no CP. GI: Denies abdominal pain, nausea, vomiting and diarrhea. : Denies dysuria and urinary frequency. MSK: Denies myalgia and joint pain. SKIN: Denies rash and pruritus. NEUROLOGICAL: Denies headache and syncope. PSYCHIATRIC: Denies recent changes in mood. Denies anxiety and depression. All other ROS are negative unless in HPI PSYCHIATRIC: + depression, + hallucinations + suicidal ideation Yes all other systems are reviewed and are negative [facility] Past Medical History Attestation statement: The following information was validated with the patient. Source: old records reviewed and nursing notes reviewed Medical History Bipolar disorder Fibromyalgia PTSD (post-traumatic stress disorder) Social History Social History Household Members: Spouse and Children Household Members Other:: , daughter, adult daughter Housing: House Do you presently have visiting nurse or other home services: No Alcohol intake: never Patient Tobacco Use Status: Current everyday Tobacco user Tobacco use type: Cigarette e-Cigarette/Vaping Use: Currently Using Second Hand Smoke Exposure: No Substance Use Type: Marijuana Advance Directives: Yes Advance Directives Information Provided: Yes Advance Directives on File: No service: No Sexual orientation: Straight/Heterosexual Physical Exam Vital Signs: Vital Signs: Last Vital Signs Temp 97.9 F 08/18/22 13:26 Pulse 100 08/18/22 13:26 BP 141/87 H 08/18/22 13:26 Pulse Ox 100 08/18/22 13:26 O2 Del Method Room Air 08/18/22 13:26 BMI result Body Mass Index 83.9 GEN: Well developed, no acute distress, alert, oriented, tearful HEENT: Normocephalic, atraumatic, normal external ears, nose appears normal Eyes: Normal to appearance Neck: Supple Respiratory: Talks in complete sentences, no respiratory distress Extremities: No clubbing cyanosis or edema Neurologic: No focal neurologic deficits Skin: No rash Psych: tearful, anxious appearing, passive SI Course Reevaluation(s) Reevaluation #1: Reviewed patient's lab results. CBC without infection or anemia. CMP without electrolyte derangements. UA without infection. Urine toxicology positive for THC, otherwise negative. Patient has no medical complaints at this time and is medically cleared for psych evaluation. Time: 15:38 Reevaluation #2: Placing patient in physician observation at this time. Patient is pending care team evaluation. Additionally, patient will be signed out to the oncoming doctor at 4:00 p.m.. Disposition pending evaluation. Time: 15:53 Medical Decision Making Medical Decision Making MDM Narrative: 47 year old female with a history significant for bipolar disorder, PTSD, fibromyalgia, and depression presenting today with worsening depression, visual/ auditory hallucinations, and suicidal ideation with plan. Vital signs are stable. Physical exam unremarkable. Will obtain labs, UA and urine tox for medical clearance. Differential Diagnosis Differential Diagnoses: The differential diagnosis associated with the presentation includes (Depression, anxiety PTSD, substance abuse, bipolar disorder) see above Admission/Observation Consideration of admission/observation: Escalation of care including admission/observation considered Consult Healthcare Provider Management of the patient was discussed with: Behavioral Health Provider Lab Data [facility] Lab Attestation statement: I reviewed the patient's lab results. Urine negative for infection. Urine toxicology positive for THC, otherwise negative. 08/18/22 13:57 08/18/22 13:56 Labs: Lab Results 08/18/22 08/18/22 08/18/22 Range/Units 13:56 13:56 13:56 WBC (4.8-10.8) X10*3/uL RBC (4.20-5.50) X10*6/uL Hgb (12.0-16.0) g/dl Hct (37.0-47.0) % MCV (80.0-98.0) fL MCH (27.0-33.0) pg MCHC (31.0-35.0) g/dl RDW (11.0-16.0) % Plt Count (160-400) X10*3/uL MPV (9.4-12.3) fL Immature Gran % (Auto) (0.0-0.4) % Neut % (Auto) (45-73) % Lymph % (Auto) (20-40) % Addison % (Auto) (2-11) % Eos % (Auto) (0-4) % Baso % (Auto) (0-2) % Lymph # (Auto) (1.2-4.9) X10*3/uL Addison # (Auto) (0.1-1.2) X10*3/uL Eos # (Auto) (0.0-0.4) X10*3/uL Baso # (Auto) (0.0-0.2) X10*3/uL Abs Immat Gran (auto) (0.00-0.03) X10*3/uL Absolute Neuts (auto) (2.0-8.3) x10*3/uL Absolute Nucleated RBC (0.0-0.012) X10*3/uL Nucleated RBC % (auto) (0.0-0.2) /100WBC Sodium 141 (135-145) mmol/L Potassium 4.4 (3.3-5.1) mmol/L Chloride 105 (96-108) mmol/L Carbon Dioxide 30 H (22-29) mmol/L Anion Gap 10 L (12-20) BUN 17 H (9-16) mg/dL Creatinine 0.79 (0.5-1.4) mg/dL Estim Creat Clear Calc 155.6 Estimated GFR > 60 Random Glucose 100 (60-115) mg/dL Calcium 9.6 (8.4-10.2) mg/dL Total Bilirubin 0.2 (0.0-1.0) mg/dL AST 15 (5-31) U/L ALT 12 (0-31) U/L Alkaline Phosphatase 141 H (39-117) U/L Total Protein 7.1 (6.5-8.0) g/dL Albumin 4.2 (3.5-5.0) g/dL Urine Color Urine Appearance Urine pH (5.0-9.0) Ur Specific [place] (1.005-1.025) Urine Protein (Neg-Trace) mg/dL Urine Glucose (UA) (Negative) mg/dL Urine Ketones (Negative) mg/dL Urine Blood (Negative) Urine Nitrite (Negative) Ur Leukocyte Esterase (Negative) Urine Test (NEGATIVE) Urine Opiates Screen (Not Detect) Urine Fentanyl Screen (Not Detect) Ur Barbiturates Screen (Not Detect) Ur Phencyclidine Scrn (Not Detect) Ur Amphetamines Screen (Not Detect) U Benzodiazepines Scrn (Not Detect) Urine Cocaine Screen (Not Detect) U Marijuana (THC) Screen (Not Detect) Ethyl Alcohol < 10 mg/dL COVID-19 ([facility]) Negative (Negative) COVID-19 Clin Com See Note 08/18/22 08/18/22 08/18/22 Range/Units 13:56 13:56 13:56 WBC (4.8-10.8) X10*3/uL RBC (4.20-5.50) X10*6/uL Hgb (12.0-16.0) g/dl Hct (37.0-47.0) % MCV (80.0-98.0) fL MCH (27.0-33.0) pg MCHC (31.0-35.0) g/dl RDW (11.0-16.0) % Plt Count (160-400) X10*3/uL MPV (9.4-12.3) fL Immature Gran % (Auto) (0.0-0.4) % Neut % (Auto) (45-73) % Lymph % (Auto) (20-40) % Addison % (Auto) (2-11) % Eos % (Auto) (0-4) % Baso % (Auto) (0-2) % Lymph # (Auto) (1.2-4.9) X10*3/uL Addison # (Auto) (0.1-1.2) X10*3/uL Eos # (Auto) (0.0-0.4) X10*3/uL Baso # (Auto) (0.0-0.2) X10*3/uL Abs Immat Gran (auto) (0.00-0.03) X10*3/uL Absolute Neuts (auto) (2.0-8.3) x10*3/uL Absolute Nucleated RBC (0.0-0.012) X10*3/uL Nucleated RBC % (auto) (0.0-0.2) /100WBC Sodium (135-145) mmol/L Potassium (3.3-5.1) mmol/L Chloride (96-108) mmol/L Carbon Dioxide (22-29) mmol/L Anion Gap (12-20) BUN (9-16) mg/dL Creatinine (0.5-1.4) mg/dL Estim Creat Clear Calc Estimated GFR Random Glucose (60-115) mg/dL Calcium (8.4-10.2) mg/dL Total Bilirubin (0.0-1.0) mg/dL AST (5-31) U/L ALT (0-31) U/L Alkaline Phosphatase (39-117) U/L Total Protein (6.5-8.0) g/dL Albumin (3.5-5.0) g/dL Urine Color Yellow Urine Appearance Clear Urine pH 5.5 (5.0-9.0) Ur Specific [place] 1.010 (1.005-1.025) Urine Protein Negative (Neg-Trace) mg/dL Urine Glucose (UA) Negative (Negative) mg/dL Urine Ketones Negative (Negative) mg/dL Urine Blood Negative (Negative) Urine Nitrite Negative (Negative) Ur Leukocyte Esterase Negative (Negative) Urine Test NEGATIVE (NEGATIVE) Urine Opiates Screen Not Detected (Not Detect) Urine Fentanyl Screen Not Detected (Not Detect) Ur Barbiturates Screen Not Detected (Not Detect) Ur Phencyclidine Scrn Not Detected (Not Detect) Ur Amphetamines Screen Not Detected (Not Detect) U Benzodiazepines Scrn Not Detected (Not Detect) Urine Cocaine Screen Not Detected (Not Detect) U Marijuana (THC) Screen POSITIVE H (Not Detect) Ethyl Alcohol mg/dL COVID-19 ([facility]) (Negative) COVID-19 Clin Com 08/18/22 Range/Units 13:57 WBC 10.7 (4.8-10.8) X10*3/uL RBC 3.97 L (4.20-5.50) X10*6/uL Hgb 11.8 L (12.0-16.0) g/dl Hct 36.5 L (37.0-47.0) % MCV 91.9 (80.0-98.0) fL MCH 29.7 (27.0-33.0) pg MCHC 32.3 (31.0-35.0) g/dl RDW 14.7 (11.0-16.0) % Plt Count 365 (160-400) X10*3/uL MPV 10.5 (9.4-12.3) fL Immature Gran % (Auto) 0.4 (0.0-0.4) % Neut % (Auto) 69.6 (45-73) % Lymph % (Auto) 22.9 (20-40) % Addison % (Auto) 4.8 (2-11) % Eos % (Auto) 1.8 (0-4) % Baso % (Auto) 0.5 (0-2) % Lymph # (Auto) 2.5 (1.2-4.9) X10*3/uL Addison # (Auto) 0.5 (0.1-1.2) X10*3/uL Eos # (Auto) 0.2 (0.0-0.4) X10*3/uL Baso # (Auto) 0.1 (0.0-0.2) X10*3/uL Abs Immat Gran (auto) 0.04 H (0.00-0.03) X10*3/uL Absolute Neuts (auto) 7.5 (2.0-8.3) x10*3/uL Absolute Nucleated RBC 0.000 (0.0-0.012) X10*3/uL Nucleated RBC % (auto) 0.0 (0.0-0.2) /100WBC Sodium (135-145) mmol/L Potassium (3.3-5.1) mmol/L Chloride (96-108) mmol/L Carbon Dioxide (22-29) mmol/L Anion Gap (12-20) BUN (9-16) mg/dL Creatinine (0.5-1.4) mg/dL Estim Creat Clear Calc Estimated GFR Random Glucose (60-115) mg/dL Calcium (8.4-10.2) mg/dL Total Bilirubin (0.0-1.0) mg/dL AST (5-31) U/L ALT (0-31) U/L Alkaline Phosphatase (39-117) U/L Total Protein (6.5-8.0) g/dL Albumin (3.5-5.0) g/dL Urine Color Urine Appearance Urine pH (5.0-9.0) Ur Specific [place] (1.005-1.025) Urine Protein (Neg-Trace) mg/dL Urine Glucose (UA) (Negative) mg/dL Urine Ketones (Negative) mg/dL Urine Blood (Negative) Urine Nitrite (Negative) Ur Leukocyte Esterase (Negative) Urine Test (NEGATIVE) Urine Opiates Screen (Not Detect) Urine Fentanyl Screen (Not Detect) Ur Barbiturates Screen (Not Detect) Ur Phencyclidine Scrn (Not Detect) Ur Amphetamines Screen (Not Detect) U Benzodiazepines Scrn (Not Detect) Urine Cocaine Screen (Not Detect) U Marijuana (THC) Screen (Not Detect) Ethyl Alcohol mg/dL COVID-19 ([facility]) (Negative) COVID-19 Clin Com External Record Review External record reviewed: Inpatient record Prescription Management I considered prescription management with: Other (anxiety medications) Chronic Conditions Patient?s care impacted by: Other (psychiatric diagnosis) Discharge Plan Discharge Clinical Impression: Depression, Suicidal ideation, Acute anxiety Patient Disposition: Still a Patient Prescriptions: No Action clonazepam 1 mg tablet 1 mg PO BID Qty: 30 0RF pregabalin [Lyrica] 50 mg capsule 75 mg PO BEDTIME Patient Comments: Patient reports increased to 75 mg daily. prazosin 2 mg capsule 6 mg PO BEDTIME 10 Days Qty: 30 0RF lamotrigine [Lamictal ODT] 100 mg tablet,disintegrating 100 mg PO BID Qty: 20 0RF lurasidone [Latuda] 60 mg tablet 60 mg PO QPM 20 Days Qty: 20 0RF Rx Instructions: Take with dinner daily lorazepam 0.5 mg tablet 0.5 mg PO DAILY PRN (Reason: anxiety / panic) Qty: 5 0RF calcium carbonate-vitamin D3 [Calcium 500 With D] 500 mg-10 mcg (400 unit) tablet 2 tab PO QAM gabapentin 600 mg Tablet 600 mg PO DAILY Qty: 30 0RF quetiapine 200 mg Tablet 200 mg PO BEDTIME Qty: 30 0RF cholecalciferol (vitamin D3) [Vitamin D3] 10 mcg (400 unit) Tablet 10 mcg PO DAILY Qty: 0 0RF Interventions: [place]-Suicide Risk Severity Scale Last Done: 08/18/22 13:30
[2022-08-18 14:22] LABS: Amphetamine Screen Urine Not Detected (Not Detect); Barbiturates, Urine Not Detected (Not Detect); Benzodiazepines Screen Urine Not Detected (Not Detect); Cannabinoid Screen Urine POSITIVE (Not Detect); Cocaine Screen Urine Not Detected (Not Detect); Fentanyl, urine Not Detected (Not Detect); Opiate Screen Urine Not Detected (Not Detect); Phencyclidine Screen Urine Not Detected (Not Detect)
[2022-08-18 14:23] LABS: COVID-19 Test Negative (Negative); IDNOW Serial# BCCEAD1C
[2022-08-18 14:26] LABS: Ethanol < 10 mg/dL
[2022-08-18 14:27] LABS: Alanine Aminotransferase 12 U/L (0-31); Albumin Level 4.2 g/dL (3.5-5.0); Alkaline Phosphatase 141 U/L (39-117); Anion Gap 10 (12-20); Aspartate Amino Transferase 15 U/L (5-31); Bilirubin Total 0.2 mg/dL (0.0-1.0); Blood Urea Nitrogen 17 mg/dL (9-16); Calcium 9.6 mg/dL (8.4-10.2); Carbon Dioxide 30 mmol/L (22-29); Chloride 105 mmol/L (96-108); Creatinine Clr Calc Pharmacy 155.6; Estimated Glomerular Filt Rate > 60; Glucose Random 100 mg/dL (60-115); Potassium 4.4 mmol/L (3.3-5.1); Sodium 141 mmol/L (135-145); Total Protein 7.1 g/dL (6.5-8.0)
[2022-08-18] MEDS: LORazepam 1 MG TABLET PO (16:30)
--- NOTE | 2022-08-18 16:34 | PC.NURSE ---
Pt medicated per MD order with Lorazepam 1mg orally. Pt is calm/cooperative at this time.
[2022-08-18 16:58] LABS: Acetaminophen LAB < 17 mcg/mL (<30); Salicylate < 5.0 mg/dL (15-30)
--- NOTE | 2022-08-18 18:48 | MHC.CARE ---
patient is inpatient LOC, psych. she is in agreement.
[2022-08-18 19:21] VITALS: BP 149/104; PULSE 86; RESP 20; TEMP 36.9; O2SAT 99
[2022-08-18] MEDS: Ibuprofen 800 MG TABLET PO (19:42)
[2022-08-18] MEDS: clonazePAM 1 MG TABLET PO (21:41)
[2022-08-18] MEDS: lamoTRIgine 100 MG TABLET PO (21:41)
[2022-08-18] MEDS: QUEtiapine Fumarate 200 MG TABLET PO (21:41)
[2022-08-18] MEDS: Prazosin HCL 1 MG CAPSULE 6 MG PO (21:41)
[2022-08-18 21:46] VITALS: BP 143/92; PULSE 86; RESP 20; TEMP 36.8; O2SAT 98
[2022-08-18] MEDS: Pregabalin 75 MG CAPSULE PO (22:02)
--- NOTE | 2022-08-19 | ECG_ITS ---
Test Reason : prolonged qt Blood Pressure : / mmHG Vent. Rate : 080 BPM Atrial Rate : 080 BPM P-R Int : 152 ms QRS Dur : 078 ms QT Int : 386 ms P-R-T Axes : 061 045 046 degrees QTc Int : 445 ms Normal sinus rhythm Normal ECG When compared with ECG of 06-JUL-2022 11:04, No significant change was found Referred By: Terrance Lockwood Electronically Signed By:KENTRELL DRAKE
--- NOTE | 2022-08-19 06:33 | PC.NURSE ---
Patient slept through the night, no distress observed/reported, behavior non concerning, medication compliant, disposition per care team is voluntary inpatient bed search, labs completed/resulted, VSS, will continue to monitor.
[2022-08-19 06:35] VITALS: RESP 16
--- NOTE | 2022-08-19 09:47 | PHA.MEDREC ---
Pharmacy Consult ? Medication Reconciliation Pharmacy has reviewed the medication reconciliation done by RN.
[2022-08-19] MEDS: Gabapentin 600 MG TABLET PO (10:45)
[2022-08-19] MEDS: lamoTRIgine 100 MG TABLET PO ×2 (10:45→21:07)
[2022-08-19] MEDS: clonazePAM 1 MG TABLET PO ×2 (10:46→21:05)
[2022-08-19] MEDS: Calcium + Vitamin D 250 MG TABLET 1000 MG PO (12:57)
[2022-08-19] MEDS: Cholecalciferol (Vitamin D3) 10 MCG TABLET PO (12:57)
[2022-08-19 13:55] VITALS: BP 141/99; PULSE 90; RESP 16; TEMP 37; O2SAT 99
[2022-08-19] MEDS: Nicotine Polacrilex Lozenge 4 MG LOZENGE BUCCAL ×3 (14:15→21:54)
[2022-08-19] MEDS: Nicotine 21 MG PATCH.TD24 TRANSDERMA (14:20)
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
--- NOTE | 2022-08-19 15:13 | PC.NURSE ---
Admission skin check completed. NO acute findings or complaints.
[2022-08-19] MEDS: LORazepam 0.5 MG TABLET PO (15:35)
[2022-08-19 16:30] VITALS: BP 144/84; PULSE 85; RESP 16; TEMP 36.4; O2SAT 97
[2022-08-19] MEDS: QUEtiapine Fumarate 200 MG TABLET PO (21:06)
[2022-08-19] MEDS: Pregabalin 75 MG CAPSULE PO (21:06)
[2022-08-19] MEDS: Prazosin HCL 1 MG CAPSULE 6 MG PO (21:07)
--- NOTE | 2022-08-20 | EEG_ITS ---
This is a 16-channel EEG with an EKG lead. The patient is reported awake and drowsy during the tracing. Background EEG rhythm is 12 to 14 hertz low to medium amplitude posteriorly and lower amplitude fast anteriorly. Photic stimulation does not produce any significant driving. Hyperventilation is not performed. Cardiac lead does not reveal any significant abnormality. No sharp wave spikes or paroxysmal tendency noted. IMPRESSION: Unremarkable EEG. MD HARI Hassan/ELENA / [id number]
[2022-08-20 07:00] VITALS: BMI 37.6
[2022-08-20] MEDS: Nicotine 21 MG PATCH.TD24 TRANSDERMA (08:43)
[2022-08-20] MEDS: Cholecalciferol (Vitamin D3) 10 MCG TABLET PO (08:44)
[2022-08-20] MEDS: lamoTRIgine 100 MG TABLET PO ×2 (08:45→20:07)
[2022-08-20] MEDS: Gabapentin 600 MG TABLET PO (08:45)
[2022-08-20] MEDS: Calcium + Vitamin D 250 MG TABLET 1000 MG PO (08:45)
[2022-08-20] MEDS: clonazePAM 1 MG TABLET PO ×2 (08:45→20:07)
[2022-08-20 08:48] VITALS: BP 162/72; PULSE 116; RESP 18; TEMP 36.1; O2SAT 97
[2022-08-20] MEDS: Nicotine Polacrilex Lozenge 4 MG LOZENGE BUCCAL ×4 (09:40→22:04)
[2022-08-20 09:43] LABS: Cholesterol 203 mg/dL; HDL Cholesterol 52 mg/dL; LDL Cholesterol Calculated 137 mg/dl; Magnesium 1.8 mg/dL (1.6-2.6); Triglycerides 71 mg/dL
[2022-08-20 09:48] LABS: Free T4 (Free Thyroxine) 0.96 ng/dL (0.71-1.85); Thyroid Stimulating Hormone 3.06 uIU/mL (0.32-4.0)
[2022-08-20 09:58] LABS: Folate 12.4 ng/mL (> or = 4.0); Vitamin B12 543 pg/mL (200-900)
[2022-08-20 10:46] LABS: Estimated Average Glucose 94 mg/dL; Hemoglobin A1c % 4.9 %
[2022-08-20] MEDS: Cariprazine HCl 3 MG CAPSULE PO (11:40)
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
[2022-08-20 18:00] VITALS: BP 136/84; PULSE 85; RESP 16; TEMP 36.3; O2SAT 97
[2022-08-20] MEDS: hydrOXYzine HCL 25 MG TABLET PO (18:01)
[2022-08-20] MEDS: Prazosin HCL 1 MG CAPSULE 6 MG PO (20:06)
[2022-08-20] MEDS: QUEtiapine Fumarate 300 MG TABLET PO (20:07)
[2022-08-20] MEDS: Pregabalin 75 MG CAPSULE PO (20:07)
[2022-08-20] MEDS: traZODone HCL 100 MG TABLET PO (22:03)
[2022-08-21 08:40] VITALS: BP 118/83; PULSE 114; RESP 16; TEMP 36.6; O2SAT 95
[2022-08-21] MEDS: Cholecalciferol (Vitamin D3) 10 MCG TABLET PO (08:56)
[2022-08-21] MEDS: lamoTRIgine 100 MG TABLET PO ×2 (08:56→19:48)
[2022-08-21] MEDS: Cariprazine HCl 3 MG CAPSULE PO (08:56)
[2022-08-21] MEDS: Gabapentin 600 MG TABLET PO (08:56)
[2022-08-21] MEDS: clonazePAM 1 MG TABLET PO ×2 (08:56→19:48)
[2022-08-21] MEDS: Nicotine 21 MG PATCH.TD24 TRANSDERMA (08:57)
[2022-08-21] MEDS: Acetaminophen 325 MG TABLET 650 MG PO (09:08)
[2022-08-21] MEDS: Nicotine Polacrilex Lozenge 4 MG LOZENGE BUCCAL ×2 (10:32→18:04)
--- NOTE | 2022-08-21 14:22 | HO.PSYCHPN ---
Subjective Subjective Date of Service: 08/21/22 Reason For Visit: PTSD. Bipolar disorder Subjective Notes: Conditional Voluntary Healthcare Proxy: No Guardianship: No Medical Problems Affecting Mental Status: No Interim History: Insomnia continues to be an issue, Seroquel increase has not helped. Will trial 3 nights of Valproate to see if this will manage sx. Trazodone discontinued as it is not effective. Lidocaine patches to neck and back. Discussed scheduling a family meeting with pt, , 21 yo daughter next week. She believes this is a good plan. Medication Compliance: Yes Side effects from medications: No Attending Groups: Yes Review of Systems Acute medical concerns: No Medical Review of Systems: unchanged Mental Status Exam Mental Status Exam Patient Appearance: Appropriate Patient Orientation: Person, Place, Time and Situation Level of Consciousness: Alert Patient Behavior: Appropriate, Talkative, Cooperative, Anxious, Fatigued and Good Eye Contact Mood Description: Depressed Affect Description: Flat Patient Cognition Impaired: No Ability to Follow Directions: Good Speech Pattern: Spontaneous Speech Memory Description: Intact Hallucinations: Auditory and Visual Perceptual Disturbances: Depersonalization and Derealization Thought Process: Rumination Thought Content: positive for Circumstantial, positive for Perseveration and positive for Suicidal Ideation Depressive Symptoms: Insomnia, Difficulty Sleeping, Changes in Appetite, Increased Fatigue and Thoughts of /Suicide Judgement: Good Diagnostics Vital Signs (24Hr): Vital Signs - 24 hr 08/20/22 18:00 08/21/22 08:40 Temperature 97.3 F 97.8 F Pulse Rate 85 114 H Respiratory Rate 16 16 Blood Pressure 136/84 118/83 Pulse Oximetry 97 95 Oxygen Delivery Method Room Air Room Air BMI result Body Mass Index 37.6 Labs 08/18/22 13:57 08/18/22 13:56 Labs: Laboratory Results - last 48 hr 08/20/22 08/20/22 08/20/22 08:28 08:28 08:28 Estimat Average Glucose 94 Hemoglobin A1c % 4.9 Magnesium 1.8 Triglycerides 71 Cholesterol 203 LDL Cholesterol, Calc 137 HDL Cholesterol 52 Vitamin B12 543 Folate 12.4 TSH 3.06 Free T4 0.96 Imaging Radiology Impressions: ITS Impressions Head CT 08/20/22 14:28 IMPRESSION: No acute intracranial pathology. Prominence of the lateral ventricles with a cavum septum pellucidum. Findings may be developmental in etiology. The possibility of aqueductal stenosis cannot be conclusively ruled out on the basis of this study. A follow-up MRI of the brain with a cine CSF flow study targeting the cerebral aqueduct could be obtained in follow-up for further assessment. Medications Medications Current Medications Acetaminophen (Acetaminophen 325 Mg Tablet) 650 mg PO Q6H PRN PRN Reason: Headache/Pain Mild Scale (1-3) Last Admin: 08/21/22 09:08 Dose: 650 mg Al Hydroxide/Mg Hydroxide (Magnesium Hydrox/Alum Hydrox 30 Ml Oral.Susp) 30 ml PO Q6H PRN PRN Reason: Heartburn/Nausea Calcium Carbonate/Cholecalciferol (Calcium + Vitamin D 250 Mg Tablet) 1,000 mg PO DAILY [facility] Last Admin: 08/21/22 08:57 Dose: Not Given Cariprazine (Cariprazine Hcl 3 Mg Capsule) 3 mg PO DAILY [facility] Last Admin: 08/21/22 08:56 Dose: 3 mg Clonazepam (Clonazepam 1 Mg Tablet) 1 mg PO BID [facility] Last Admin: 08/21/22 08:56 Dose: 1 mg Gabapentin (Gabapentin 600 Mg Tablet) 600 mg PO DAILY [facility] Last Admin: 08/21/22 08:56 Dose: 600 mg Hydroxyzine HCl (Hydroxyzine Hcl 25 Mg Tablet) 25 mg PO Q6H PRN PRN Reason: Anxiety Last Admin: 08/20/22 18:01 Dose: 25 mg Lamotrigine (Lamotrigine 100 Mg Tablet) 100 mg PO BID [facility] Last Admin: 08/21/22 08:56 Dose: 100 mg Magnesium Hydroxide (Milk Of Magnesia 30 Ml Oral.Susp) 30 ml PO DAILY PRN PRN Reason: Constipation Nicotine (Nicotine 21 Mg Patch.Td24) 21 mg TRANSDERMA DAILY [facility] Last Admin: 08/21/22 08:57 Dose: 21 mg Nicotine Polacrilex (Nicotine Polacrilex Lozenge 4 Mg Lozenge) 4 mg BUCCAL Q2H PRN PRN Reason: Nicotine Cravings Last Admin: 08/21/22 10:32 Dose: 4 mg Prazosin HCl (Prazosin Hcl 1 Mg Capsule) 6 mg PO BEDTIME [facility]; Protocol Last Admin: 08/20/22 20:06 Dose: 6 mg Pregabalin (Pregabalin 75 Mg Capsule) 75 mg PO BEDTIME [facility] Last Admin: 08/20/22 20:07 Dose: 75 mg Quetiapine Fumarate (Quetiapine Fumarate 300 Mg Tablet) 300 mg PO BEDTIME [facility] Last Admin: 08/20/22 20:07 Dose: 300 mg Trazodone HCl (Trazodone Hcl 100 Mg Tablet) 100 mg PO BEDTIME MRX1 PRN PRN Reason: Insomnia Last Admin: 08/20/22 22:03 Dose: 100 mg Vitamin D (Cholecalciferol (Vitamin D3) 10 Mcg Tablet) 10 mcg PO DAILY [facility] Last Admin: 08/21/22 08:56 Dose: 10 mcg Allergies Allergies Allergy/AdvReac Type Severity Reaction Status Date / Time Penicillins Allergy Swelling Verified 08/06/22 11:05 Assessment & Plan Assessment & Plan (1) PTSD (post-traumatic stress disorder): Status: Acute Code(s): F43.10 - Post-traumatic stress disorder, unspecified (2) Bipolar disorder: Status: Acute Code(s): F31.9 - Bipolar disorder, unspecified (3) Complicated grieving: Status: Acute Code(s): F43.21 - Adjustment disorder with depressed mood Plan 47 yo female, history of PTSD, Bipolar disorder, complicated grieving, returns for admission due to active SI. Precipitant appears to be holiday, anniversaries of loss, complex grief over the of her ex- and multiple changes at home including the stress of moving. Plan: DC Latuda Vraylar 3 mg a.m Increase Seroquel to 300 mg hs to assist with mood, sleep Increase Trazodone to 100 mg hs to assist with sleep CAT Brain-hx concussion without eval 2019 EEG- hx concussion without eval 2020 08/21/22 Discontinue Trazodone Depakote ER 500 mg HS-3 day trial to assess if mood/sleep are assisted Lidocaine Patch to neck/back for pain mgt. Informed Consent: understands Reason for continued inpatient stay Substantial Risk for: rapid decompensation Time Spent With Patient Time: Total time managing care of this patient today ____ minutes.
[2022-08-21 15:59] VITALS: BP 143/85; PULSE 92; RESP 16; TEMP 36.4; O2SAT 99
[2022-08-21] MEDS: Lidocaine 4 % Patch ADH..PATCH 2 PATCH TRANSDERMA (16:50)
[2022-08-21] MEDS: hydrOXYzine HCL 25 MG TABLET PO (18:03)
[2022-08-21] MEDS: Pregabalin 75 MG CAPSULE PO (19:48)
[2022-08-21] MEDS: QUEtiapine Fumarate 300 MG TABLET PO (19:48)
[2022-08-21] MEDS: Divalproex Sodium ER 500 MG TAB.ER.24H PO (19:48)
[2022-08-21] MEDS: Prazosin HCL 1 MG CAPSULE 6 MG PO (19:48)
[2022-08-22] MEDS: hydrOXYzine HCL 25 MG TABLET PO ×2 (04:52→16:30)
[2022-08-22 08:59] VITALS: BP 137/63; PULSE 107; RESP 18; TEMP 36.2; O2SAT 98
[2022-08-22] MEDS: clonazePAM 1 MG TABLET PO ×2 (09:05→21:38)
[2022-08-22] MEDS: Cholecalciferol (Vitamin D3) 10 MCG TABLET PO (09:05)
[2022-08-22] MEDS: Gabapentin 600 MG TABLET PO (09:05)
[2022-08-22] MEDS: Calcium + Vitamin D 250 MG TABLET 1000 MG PO (09:05)
[2022-08-22] MEDS: Cariprazine HCl 3 MG CAPSULE PO (09:06)
[2022-08-22] MEDS: lamoTRIgine 100 MG TABLET PO ×2 (09:06→21:38)
[2022-08-22] MEDS: Nicotine 21 MG PATCH.TD24 TRANSDERMA (09:52)
[2022-08-22] MEDS: Nicotine Polacrilex Lozenge 4 MG LOZENGE BUCCAL (09:57)
[2022-08-22] MEDS: Lidocaine 4 % Patch ADH..PATCH 2 PATCH TRANSDERMA (09:58)
--- NOTE | 2022-08-22 11:35 | HO.PSYCHPN ---
Subjective Subjective Date of Service: 08/22/22 Reason For Visit: PTSD. Bipolar disorder Interim History: Patient seen and discussed. Patient continues to feel depressed and anxious and haunted by bad memories. Grieving ex-'s . Guilt. Intrusive memories. Tolerating medication changes so far. Denies side effects. Insomnia continues to be an issue, Seroquel increase has not helped. Valproate added last night. Trazodone discontinued as it is not effective. Lidocaine patches to neck and back. Denies active SI. Review of Systems Review of Systems CONSTITUTIONAL: Denies weight loss, fever and chills. HEENT: Denies changes in vision and hearing. RESPIRATORY: Denies SOB and cough. CV: Denies palpitations no CP. GI: Denies abdominal pain, nausea, vomiting and diarrhea. : Denies dysuria and urinary frequency. MSK: Denies myalgia and joint pain. SKIN: Denies rash and pruritus. NEUROLOGICAL: Denies headache and syncope. PSYCHIATRIC: Denies recent changes in mood. Denies anxiety and depression. All other ROS are negative unless in HPI PSYCHIATRIC: + depression, + hallucinations + suicidal ideation Yes all other systems are reviewed and are negative Constitutional: Reports anorexia, Reports difficulty sleeping, Reports headache(s), Reports lethargy, Reports poor appetite and Reports weakness Reports vertigo and Reports headache(s) Reports behavioral changes, Reports vertigo, Reports headache(s), Reports memory loss and Reports weakness Psychiatric: Reports abnormal sleep pattern, Reports anxiety, Reports behavioral changes, Reports change in appetite, Reports depression, Reports difficulty concentrating, Reports auditory hallucinations, Reports hopelessness, Reports irritability, Reports anhedonia, Reports memory loss, Reports mood swings, Reports panic attacks, Reports visual hallucinations and Reports suicidal ideation Mental Status Exam Mental Status Exam Patient Appearance: Appropriate Patient Orientation: Person, Place, Time and Situation Level of Consciousness: Alert Patient Behavior: Appropriate, Talkative, Cooperative, Anxious, Fatigued and Good Eye Contact Mood Description: Depressed Affect Description: Flat Patient Cognition Impaired: No Ability to Follow Directions: Good Speech Pattern: Spontaneous Speech Memory Description: Intact Hallucinations: None Thought Process: Intact Thought Content: positive for Goal Oriented Depressive Symptoms: Increased Anxiety, Insomnia, Crying Spells, Hopelessness, Feelings of Guilt and Thoughts of /Suicide Abnormal Motor Activity Signs and Symptoms: Psychomotor Retardation Judgement: Fair Diagnostics Vital Signs (24Hr): Vital Signs - 24 hr 08/21/22 15:59 08/22/22 08:59 Temperature 97.6 F 97.2 F Pulse Rate 92 107 H Respiratory Rate 16 18 Blood Pressure 143/85 H 137/63 Pulse Oximetry 99 98 Oxygen Delivery Method Room Air Room Air BMI result Body Mass Index 37.6 Labs 08/18/22 13:57 08/18/22 13:56 Imaging Radiology Impressions: ITS Impressions Head CT 08/20/22 14:28 IMPRESSION: No acute intracranial pathology. Prominence of the lateral ventricles with a cavum septum pellucidum. Findings may be developmental in etiology. The possibility of aqueductal stenosis cannot be conclusively ruled out on the basis of this study. A follow-up MRI of the brain with a cine CSF flow study targeting the cerebral aqueduct could be obtained in follow-up for further assessment. Medications Medications Current Medications Acetaminophen (Acetaminophen 325 Mg Tablet) 650 mg PO Q6H PRN PRN Reason: Headache/Pain Mild Scale (1-3) Last Admin: 08/21/22 09:08 Dose: 650 mg Al Hydroxide/Mg Hydroxide (Magnesium Hydrox/Alum Hydrox 30 Ml Oral.Susp) 30 ml PO Q6H PRN PRN Reason: Heartburn/Nausea Calcium Carbonate/Cholecalciferol (Calcium + Vitamin D 250 Mg Tablet) 1,000 mg PO DAILY [facility] Last Admin: 08/22/22 09:05 Dose: 1,000 mg Cariprazine (Cariprazine Hcl 3 Mg Capsule) 3 mg PO DAILY [facility] Last Admin: 08/22/22 09:06 Dose: 3 mg Clonazepam (Clonazepam 1 Mg Tablet) 1 mg PO BID [facility] Last Admin: 08/22/22 09:05 Dose: 1 mg Divalproex Sodium (Divalproex Sodium Er 500 Mg Tab.Er.24h) 500 mg PO BEDTIME [facility] Last Admin: 08/21/22 19:48 Dose: 500 mg Gabapentin (Gabapentin 600 Mg Tablet) 600 mg PO DAILY [facility] Last Admin: 08/22/22 09:05 Dose: 600 mg Hydroxyzine HCl (Hydroxyzine Hcl 25 Mg Tablet) 25 mg PO Q6H PRN PRN Reason: Anxiety Last Admin: 08/22/22 04:52 Dose: 25 mg Lamotrigine (Lamotrigine 100 Mg Tablet) 100 mg PO BID [facility] Last Admin: 08/22/22 09:06 Dose: 100 mg Lidocaine (Lidocaine 4 % Patch Adh..Patch) 2 patch TRANSDERMA DAILY [facility]; Protocol Last Admin: 08/22/22 09:58 Dose: 2 patch Lorazepam (Lorazepam 0.5 Mg Tablet) 0.5 mg PO DAILY PRN PRN Reason: Anxiety Magnesium Hydroxide (Milk Of Magnesia 30 Ml Oral.Susp) 30 ml PO DAILY PRN PRN Reason: Constipation Nicotine (Nicotine 21 Mg Patch.Td24) 21 mg TRANSDERMA DAILY [facility] Last Admin: 08/22/22 09:52 Dose: 21 mg Nicotine Polacrilex (Nicotine Polacrilex 2 Mg Gum) 2 mg BUCCAL Q2H PRN PRN Reason: nicotine crangs Prazosin HCl (Prazosin Hcl 1 Mg Capsule) 6 mg PO BEDTIME [facility]; Protocol Last Admin: 08/21/22 19:48 Dose: 6 mg Pregabalin (Pregabalin 75 Mg Capsule) 75 mg PO BEDTIME [facility] Last Admin: 08/21/22 19:48 Dose: 75 mg Quetiapine Fumarate (Quetiapine Fumarate 300 Mg Tablet) 300 mg PO BEDTIME [facility] Last Admin: 08/21/22 19:48 Dose: 300 mg Vitamin D (Cholecalciferol (Vitamin D3) 10 Mcg Tablet) 10 mcg PO DAILY [facility] Last Admin: 08/22/22 09:05 Dose: 10 mcg Allergies Allergies Allergy/AdvReac Type Severity Reaction Status Date / Time Penicillins Allergy Swelling Verified 08/06/22 11:05 Assessment & Plan Assessment & Plan (1) PTSD (post-traumatic stress disorder): Status: Acute Code(s): F43.10 - Post-traumatic stress disorder, unspecified (2) Bipolar disorder: Status: Acute Code(s): F31.9 - Bipolar disorder, unspecified (3) Complicated grieving: Status: Acute Code(s): F43.21 - Adjustment disorder with depressed mood Plan 47 yo female, history of PTSD, Bipolar disorder, complicated grieving, returns for admission due to active SI. Precipitant appears to be fathers' day holiday, anniversaries of loss, complex grief over the of her ex- and multiple changes at home including the stress of moving. Plan: DC Latuda Vraylar 3 mg a.m Increase Seroquel to 300 mg hs to assist with mood, sleep Increase Trazodone to 100 mg hs to assist with sleep CAT Brain-hx concussion without eval 2019 EEG- hx concussion without eval 201908/21/22 Discontinue Trazodone Depakote ER 500 mg HS-3 day trial to assess if mood/sleep are assisted Lidocaine Patch to neck/back for pain mgt. 08/22: Recent start Depakote continue to assess. Consider Clonidine. Increased frequency of Lorazepam PRN temporarily. Reason for continued inpatient stay Substantial Risk for: harm to self, inability to function and rapid decompensation Time Spent With Patient Time: Total time managing care of this patient today ____ minutes.
[2022-08-22] MEDS: LORazepam 0.5 MG TABLET PO ×2 (12:59→18:20)
[2022-08-22] MEDS: Nicotine Polacrilex 2 MG GUM BUCCAL ×2 (12:59→19:33)
[2022-08-22 21:37] VITALS: BP 138/87; PULSE 103; TEMP 36.5; O2SAT 98
[2022-08-22] MEDS: Pregabalin 75 MG CAPSULE PO (21:38)
[2022-08-22] MEDS: Divalproex Sodium ER 500 MG TAB.ER.24H PO (21:38)
[2022-08-22] MEDS: Prazosin HCL 1 MG CAPSULE 6 MG PO (21:38)
[2022-08-22] MEDS: QUEtiapine Fumarate 300 MG TABLET PO (21:38)
[2022-08-23] MEDS: hydrOXYzine HCL 25 MG TABLET PO (01:40)
[2022-08-23] MEDS: LORazepam 0.5 MG TABLET PO ×3 (03:53→21:29)
[2022-08-23 09:25] VITALS: BP 132/68; PULSE 104; RESP 18; TEMP 36.4; O2SAT 96
[2022-08-23] MEDS: Cholecalciferol (Vitamin D3) 10 MCG TABLET PO (09:32)
[2022-08-23] MEDS: Cariprazine HCl 3 MG CAPSULE PO (09:32)
[2022-08-23] MEDS: clonazePAM 1 MG TABLET PO ×2 (09:32→21:29)
[2022-08-23] MEDS: Gabapentin 600 MG TABLET PO (09:32)
[2022-08-23] MEDS: Lidocaine 4 % Patch ADH..PATCH 2 PATCH TRANSDERMA (09:32)
[2022-08-23] MEDS: Nicotine 21 MG PATCH.TD24 TRANSDERMA (09:33)
[2022-08-23] MEDS: lamoTRIgine 100 MG TABLET PO ×2 (09:33→10:54)
[2022-08-23] MEDS: Calcium + Vitamin D 250 MG TABLET 1000 MG PO (09:33)
[2022-08-23] MEDS: Nicotine Polacrilex 2 MG GUM BUCCAL ×2 (10:54→20:05)
[2022-08-23] MEDS: QUEtiapine Fumarate 50 MG TABLET PO (13:24)
--- NOTE | 2022-08-23 19:40 | HO.PSYCHPN ---
Subjective Subjective Date of Service: 08/23/22 Reason For Visit: PTSD. Bipolar disorder Interim History: Patient seen and discussed. Reports poor sleep. She however says that Lamictal is activating for her and she is receiving 100 mg at HS. She asks that the dose be all switched to AM. She had a hard time yesterday and had periods of anxiety and sobbing. She agrees to adding Seroquel PRN during the day. Denies side effects with Depakote. Lidocaine patches to neck and back. Denies active SI. Review of Systems Review of Systems CONSTITUTIONAL: Denies weight loss, fever and chills. HEENT: Denies changes in vision and hearing. RESPIRATORY: Denies SOB and cough. CV: Denies palpitations no CP. GI: Denies abdominal pain, nausea, vomiting and diarrhea. : Denies dysuria and urinary frequency. MSK: Denies myalgia and joint pain. SKIN: Denies rash and pruritus. NEUROLOGICAL: Denies headache and syncope. PSYCHIATRIC: Denies recent changes in mood. Denies anxiety and depression. All other ROS are negative unless in HPI PSYCHIATRIC: + depression, + hallucinations + suicidal ideation Yes all other systems are reviewed and are negative Constitutional: Reports anorexia, Reports difficulty sleeping, Reports headache(s), Reports lethargy, Reports poor appetite and Reports weakness Reports vertigo and Reports headache(s) Reports behavioral changes, Reports vertigo, Reports headache(s), Reports memory loss and Reports weakness Psychiatric: Reports abnormal sleep pattern, Reports anxiety, Reports behavioral changes, Reports change in appetite, Reports depression, Reports difficulty concentrating, Reports auditory hallucinations, Reports hopelessness, Reports irritability, Reports anhedonia, Reports memory loss, Reports mood swings, Reports panic attacks, Reports visual hallucinations and Reports suicidal ideation Mental Status Exam Mental Status Exam Patient Appearance: Appropriate Patient Orientation: Person, Place, Time and Situation Level of Consciousness: Alert Patient Behavior: Appropriate, Talkative, Cooperative, Anxious, Fatigued and Good Eye Contact Mood Description: Depressed Affect Description: Flat Patient Cognition Impaired: No Ability to Follow Directions: Good Speech Pattern: Spontaneous Speech Memory Description: Intact Diagnostics Vital Signs (24Hr): Vital Signs - 24 hr 08/22/22 21:37 08/23/22 09:25 Temperature 97.7 F 97.5 F Pulse Rate 103 H 104 H Respiratory Rate 18 Blood Pressure 138/87 132/68 Pulse Oximetry 98 96 Oxygen Delivery Method Room Air Room Air BMI result Body Mass Index 37.6 Labs 08/18/22 13:57 08/18/22 13:56 Imaging Radiology Impressions: ITS Impressions Head CT 08/20/22 14:28 IMPRESSION: No acute intracranial pathology. Prominence of the lateral ventricles with a cavum septum pellucidum. Findings may be developmental in etiology. The possibility of aqueductal stenosis cannot be conclusively ruled out on the basis of this study. A follow-up MRI of the brain with a cine CSF flow study targeting the cerebral aqueduct could be obtained in follow-up for further assessment. Medications Medications Current Medications Acetaminophen (Acetaminophen 325 Mg Tablet) 650 mg PO Q6H PRN PRN Reason: Headache/Pain Mild Scale (1-3) Last Admin: 08/21/22 09:08 Dose: 650 mg Al Hydroxide/Mg Hydroxide (Magnesium Hydrox/Alum Hydrox 30 Ml Oral.Susp) 30 ml PO Q6H PRN PRN Reason: Heartburn/Nausea Calcium Carbonate/Cholecalciferol (Calcium + Vitamin D 250 Mg Tablet) 1,000 mg PO DAILY [facility] Last Admin: 08/23/22 09:33 Dose: 1,000 mg Cariprazine (Cariprazine Hcl 3 Mg Capsule) 3 mg PO DAILY [facility] Last Admin: 08/23/22 09:32 Dose: 3 mg Clonazepam (Clonazepam 1 Mg Tablet) 1 mg PO BID [facility] Last Admin: 08/23/22 09:32 Dose: 1 mg Divalproex Sodium (Divalproex Sodium Er 500 Mg Tab.Er.24h) 500 mg PO BEDTIME [facility] Last Admin: 08/22/22 21:38 Dose: 500 mg Gabapentin (Gabapentin 600 Mg Tablet) 600 mg PO DAILY [facility] Last Admin: 08/23/22 09:32 Dose: 600 mg Hydroxyzine HCl (Hydroxyzine Hcl 25 Mg Tablet) 25 mg PO Q6H PRN PRN Reason: Anxiety Last Admin: 08/23/22 01:40 Dose: 25 mg Lamotrigine (Lamotrigine 100 Mg Tablet) 200 mg PO DAILY [facility] Lidocaine (Lidocaine 4 % Patch Adh..Patch) 2 patch TRANSDERMA DAILY [facility]; Protocol Last Admin: 08/23/22 09:32 Dose: 2 patch Lorazepam (Lorazepam 0.5 Mg Tablet) 0.5 mg PO TID PRN PRN Reason: Anxiety Last Admin: 08/23/22 15:02 Dose: 0.5 mg Magnesium Hydroxide (Milk Of Magnesia 30 Ml Oral.Susp) 30 ml PO DAILY PRN PRN Reason: Constipation Nicotine (Nicotine 21 Mg Patch.Td24) 21 mg TRANSDERMA DAILY [facility] Last Admin: 08/23/22 09:33 Dose: 21 mg Nicotine Polacrilex (Nicotine Polacrilex 2 Mg Gum) 2 mg BUCCAL Q2H PRN PRN Reason: nicotine crangs Last Admin: 08/23/22 10:54 Dose: 2 mg Prazosin HCl (Prazosin Hcl 1 Mg Capsule) 6 mg PO BEDTIME [facility]; Protocol Last Admin: 08/22/22 21:38 Dose: 6 mg Pregabalin (Pregabalin 75 Mg Capsule) 75 mg PO BEDTIME [facility] Last Admin: 08/22/22 21:38 Dose: 75 mg Quetiapine Fumarate (Quetiapine Fumarate 300 Mg Tablet) 300 mg PO BEDTIME [facility] Last Admin: 08/22/22 21:38 Dose: 300 mg Quetiapine Fumarate (Quetiapine Fumarate 50 Mg Tablet) 50 mg PO BID PRN PRN Reason: anxiety Last Admin: 08/23/22 13:24 Dose: 50 mg Vitamin D (Cholecalciferol (Vitamin D3) 10 Mcg Tablet) 10 mcg PO DAILY [facility] Last Admin: 08/23/22 09:32 Dose: 10 mcg Allergies Allergies Allergy/AdvReac Type Severity Reaction Status Date / Time Penicillins Allergy Swelling Verified 08/06/22 11:05 Assessment & Plan Assessment & Plan (1) PTSD (post-traumatic stress disorder): Status: Acute Code(s): F43.10 - Post-traumatic stress disorder, unspecified (2) Bipolar disorder: Status: Acute Code(s): F31.9 - Bipolar disorder, unspecified (3) Complicated grieving: Status: Acute Code(s): F43.21 - Adjustment disorder with depressed mood Plan 47 yo female, history of PTSD, Bipolar disorder, complicated grieving, returns for admission due to active SI. Precipitant appears to be fathers' day holiday, anniversaries of loss, complex grief over the of her ex- and multiple changes at home including the stress of moving. Plan: DC Latuda Vraylar 3 mg a.m Increase Seroquel to 300 mg hs to assist with mood, sleep Increase Trazodone to 100 mg hs to assist with sleep CAT Brain-hx concussion without eval 2019 EEG- hx concussion without eval 201908/21/22 Discontinue Trazodone Depakote ER 500 mg HS-3 day trial to assess if mood/sleep are assisted Lidocaine Patch to neck/back for pain mgt. 08/22: Recent start Depakote continue to assess. Consider Clonidine. Increased frequency of Lorazepam PRN temporarily. 08/23: Added Seroquel 50 mg BID PRN. Reason for continued inpatient stay Substantial Risk for: harm to self and inability to function Time Spent With Patient Time: Total time managing care of this patient today ____ minutes.
[2022-08-23 21:23] VITALS: BP 154/74; PULSE 103; TEMP 36.2
[2022-08-23] MEDS: Prazosin HCL 1 MG CAPSULE 6 MG PO (21:28)
[2022-08-23] MEDS: Pregabalin 75 MG CAPSULE PO (21:28)
[2022-08-23] MEDS: Divalproex Sodium ER 500 MG TAB.ER.24H PO (21:29)
[2022-08-23] MEDS: QUEtiapine Fumarate 300 MG TABLET PO (21:29)
[2022-08-24 08:59] VITALS: BP 132/70; PULSE 117; RESP 16; TEMP 36.4
[2022-08-24] MEDS: Cholecalciferol (Vitamin D3) 10 MCG TABLET PO (11:58)
[2022-08-24] MEDS: Gabapentin 600 MG TABLET PO (11:58)
[2022-08-24] MEDS: Cariprazine HCl 3 MG CAPSULE PO (11:58)
[2022-08-24] MEDS: lamoTRIgine 100 MG TABLET 200 MG PO (11:58)
[2022-08-24] MEDS: Nicotine 21 MG PATCH.TD24 TRANSDERMA (11:59)
[2022-08-24] MEDS: Calcium + Vitamin D 250 MG TABLET 1000 MG PO (11:59)
[2022-08-24] MEDS: LORazepam 0.5 MG TABLET PO ×2 (12:00→22:49)
[2022-08-24] MEDS: Nicotine Polacrilex Lozenge 2 MG LOZENGE BUCCAL ×2 (12:16→14:25)
[2022-08-24] MEDS: QUEtiapine Fumarate 50 MG TABLET PO (14:25)
--- NOTE | 2022-08-24 16:40 | P.PNPSI_ITS ---
Subjective Subjective Date of Service: 08/24/22 Reason For Visit: PTSD. Bipolar disorder Subjective Notes: Conditional Voluntary Healthcare Proxy: No Guardianship: No Medical Problems Affecting Mental Status: No Interim History: Difficult day-initially upset with new policy where hoodies are not allowed to be worn on the unit. Refused all a.m. meds, then took them later in the a.m. Difficulty with peers who are triggering for her. Discussed concerns about moving and will schedule a couples meeting to review with pt and . Discussed her pattern of wanting to leave vs confronting problems and issues and how this has worked for her in the past. Medication Compliance: Yes Side effects from medications: No Attending Groups: Yes Review of Systems Acute medical concerns: No Medical Review of Systems: unchanged Mental Status Exam Mental Status Exam Patient Appearance: Appropriate Patient Orientation: Person, Place, Time and Situation Level of Consciousness: Alert Patient Behavior: Appropriate, Talkative, Cooperative, Good Eye Contact and Crying Mood Description: Depressed and Angry Affect Description: Flat Patient Cognition Impaired: No Ability to Follow Directions: Good Speech Pattern: Spontaneous Speech Memory Description: Intact Hallucinations: None Delusions: Not Present Perceptual Disturbances: Depersonalization and Derealization Thought Process: Rumination Thought Content: positive for Perseveration and positive for Suicidal Ideation Depressive Symptoms: Increased Anxiety, Increased Irritability and Thoughts of /Suicide Abnormal Motor Activity Signs and Symptoms: Agitation Judgement: Fair Diagnostics Vital Signs (24Hr): Vital Signs - 24 hr 08/23/22 21:23 08/24/22 08:59 Temperature 97.1 F 97.5 F Pulse Rate 103 H 117 H Respiratory Rate 16 Blood Pressure 154/74 H 132/70 BMI result Body Mass Index 37.6 Labs 08/18/22 13:57 08/18/22 13:56 Imaging Radiology Impressions: [facility] Impressions Head CT 08/20/22 14:28 IMPRESSION: No acute intracranial pathology. Prominence of the lateral ventricles with a cavum septum pellucidum. Findings may be developmental in etiology. The possibility of aqueductal stenosis cannot be conclusively ruled out on the basis of this study. A follow-up MRI of the brain with a cine CSF flow study targeting the cerebral aqueduct could be obtained in follow-up for further assessment. Medications Medications Current Medications Acetaminophen (Acetaminophen 325 Mg Tablet) 650 mg PO Q6H PRN PRN Reason: Headache/Pain Mild Scale (1-3) Last Admin: 08/21/22 09:08 Dose: 650 mg Al Hydroxide/Mg Hydroxide (Magnesium Hydrox/Alum Hydrox 30 Ml Oral.Susp) 30 ml PO Q6H PRN PRN Reason: Heartburn/Nausea Calcium Carbonate/Cholecalciferol (Calcium + Vitamin D 250 Mg Tablet) 1,000 mg PO DAILY [facility] Last Admin: 08/24/22 11:59 Dose: 1,000 mg Cariprazine (Cariprazine Hcl 3 Mg Capsule) 6 mg PO DAILY [facility] Divalproex Sodium (Divalproex Sodium Er 500 Mg Tab.Er.24h) 1,000 mg PO BEDTIME [facility] Gabapentin (Gabapentin 600 Mg Tablet) 600 mg PO DAILY [facility] Last Admin: 08/24/22 11:58 Dose: 600 mg Hydroxyzine HCl (Hydroxyzine Hcl 25 Mg Tablet) 25 mg PO Q6H PRN PRN Reason: Anxiety Last Admin: 08/23/22 01:40 Dose: 25 mg Lamotrigine (Lamotrigine 100 Mg Tablet) 200 mg PO DAILY [facility] Last Admin: 08/24/22 11:58 Dose: 200 mg Lidocaine (Lidocaine 4 % Patch Adh..Patch) 2 patch TRANSDERMA DAILY [facility]; Protocol Last Admin: 08/24/22 09:01 Dose: Not Given Lorazepam (Lorazepam 0.5 Mg Tablet) 0.5 mg PO TID PRN PRN Reason: Anxiety Last Admin: 08/24/22 12:00 Dose: 0.5 mg Magnesium Hydroxide (Milk Of Magnesia 30 Ml Oral.Susp) 30 ml PO DAILY PRN PRN Reason: Constipation Nicotine (Nicotine 21 Mg Patch.Td24) 21 mg TRANSDERMA DAILY [facility] Last Admin: 08/24/22 11:59 Dose: 21 mg Nicotine Polacrilex (Nicotine Polacrilex Lozenge 2 Mg Lozenge) 2 mg BUCCAL Q2H PRN PRN Reason: Nicotine Cravings Last Admin: 08/24/22 14:25 Dose: 2 mg Prazosin HCl (Prazosin Hcl 1 Mg Capsule) 6 mg PO BEDTIME [facility]; Protocol Last Admin: 08/23/22 21:28 Dose: 6 mg Pregabalin (Pregabalin 75 Mg Capsule) 75 mg PO BEDTIME [facility] Last Admin: 08/23/22 21:28 Dose: 75 mg Quetiapine Fumarate (Quetiapine Fumarate 300 Mg Tablet) 300 mg PO BEDTIME [facility] Last Admin: 08/23/22 21:29 Dose: 300 mg Quetiapine Fumarate (Quetiapine Fumarate 50 Mg Tablet) 50 mg PO BID PRN PRN Reason: anxiety Last Admin: 08/24/22 14:25 Dose: 50 mg Vitamin D (Cholecalciferol (Vitamin D3) 10 Mcg Tablet) 10 mcg PO DAILY [facility] Last Admin: 08/24/22 11:58 Dose: 10 mcg Allergies Allergies Allergy/AdvReac Type Severity Reaction Status Date / Time Penicillins Allergy Swelling Verified 08/06/22 11:05 Assessment & Plan Assessment & Plan (1) PTSD (post-traumatic stress disorder): Status: Acute Code(s): F43.10 - Post-traumatic stress disorder, unspecified (2) Bipolar disorder: Status: Acute Code(s): F31.9 - Bipolar disorder, unspecified (3) Complicated grieving: Status: Acute Code(s): F43.21 - Adjustment disorder with depressed mood Plan 47 yo female, history of PTSD, Bipolar disorder, complicated grieving, returns for admission due to active SI. Precipitant appears to be ' holiday, anniversaries of loss, complex grief over the of her ex- and multiple changes at home including the stress of moving. Plan: DC Latuda Vraylar 3 mg a.m Increase Seroquel to 300 mg hs to assist with mood, sleep Increase Trazodone to 100 mg hs to assist with sleep CAT Brain-hx concussion without eval 2020 EEG- hx concussion without eval 2020 08/21/22 Discontinue Trazodone Depakote ER 500 mg HS-3 day trial to assess if mood/sleep are assisted Lidocaine Patch to neck/back for pain mgt. 08/22: Recent start Depakote continue to assess. Consider Clonidine. Increased frequency of Lorazepam PRN temporarily. 08/23: Added Seroquel 50 mg BID PRN. 08/24/22 : Continue current regime Patient educated on: medication risk/benefits and therapeutic strategies Informed Consent: understands Reason for continued inpatient stay Substantial Risk for: rapid decompensation Time Spent With Patient Time: Total time managing care of this patient today ____ minutes.
[2022-08-24 18:00] VITALS: BP 129/76; PULSE 114; RESP 18; TEMP 36.3; O2SAT 98
[2022-08-24] MEDS: Prazosin HCL 1 MG CAPSULE 6 MG PO (22:48)
[2022-08-24] MEDS: QUEtiapine Fumarate 300 MG TABLET PO (22:49)
[2022-08-24] MEDS: Nicotine Polacrilex Lozenge 4 MG LOZENGE BUCCAL (22:49)
[2022-08-24] MEDS: Divalproex Sodium ER 500 MG TAB.ER.24H 1000 MG PO (22:49)
[2022-08-24] MEDS: Pregabalin 75 MG CAPSULE PO (22:49)
[2022-08-24] MEDS: hydrOXYzine HCL 25 MG TABLET PO (22:51)
[2022-08-25] MEDS: QUEtiapine Fumarate 50 MG TABLET PO (01:47)
[2022-08-25 06:00] VITALS: BP 126/82; PULSE 99; RESP 16; TEMP 36.3; O2SAT 98
[2022-08-25] MEDS: Cariprazine HCl 3 MG CAPSULE 6 MG PO (09:17)
[2022-08-25] MEDS: Gabapentin 600 MG TABLET PO (09:17)
[2022-08-25] MEDS: Cholecalciferol (Vitamin D3) 10 MCG TABLET PO (09:18)
[2022-08-25] MEDS: Calcium + Vitamin D 250 MG TABLET 1000 MG PO (09:18)
[2022-08-25] MEDS: lamoTRIgine 100 MG TABLET 200 MG PO (09:18)
[2022-08-25] MEDS: hydrOXYzine HCL 25 MG TABLET PO ×2 (10:06→21:12)
[2022-08-25] MEDS: LORazepam 0.5 MG TABLET PO ×3 (11:01→21:12)
[2022-08-25] MEDS: Nicotine Polacrilex Lozenge 4 MG LOZENGE BUCCAL ×4 (12:07→21:12)
[2022-08-25] MEDS: Nicotine 21 MG PATCH.TD24 TRANSDERMA (12:07)
--- NOTE | 2022-08-25 16:53 | HO.PSYCHPN ---
Subjective Subjective Date of Service: 08/25/22 Reason For Visit: PTSD. Bipolar disorder Subjective Notes: Conditional Voluntary Healthcare Proxy: No Guardianship: No Medical Problems Affecting Mental Status: No Interim History: Reports feeling triggered by two peers. Several care concerns, meds given late, one pt slammed a door which was triggering for her. Considering discharge due to milieu triggers for her. Discussed having a couples meeting prior to discharge, she agrees, will meet 08/26 3pm. Poor sleep, anxiety. Full med review- Depakote not helping-will taper, willing to trial low dose [place] to augment Lamictal, Clonidine prn, Vraylar increased to 6 mg-pt reports she finds Vraylar to be helpful, Chlorpromazine prn. Medication Compliance: Yes Side effects from medications: Yes (poor sleep, anxiety) Attending Groups: Yes Review of Systems Acute medical concerns: No Medical Review of Systems: unchanged Mental Status Exam Mental Status Exam Patient Appearance: Appropriate Patient Orientation: Person, Place, Time and Situation Level of Consciousness: Alert Patient Behavior: Appropriate, Talkative and Cooperative Diagnostics Vital Signs (24Hr): Vital Signs - 24 hr 08/24/22 18:00 08/25/22 06:00 Temperature 97.3 F 97.3 F Pulse Rate 114 H 99 Respiratory Rate 18 16 Blood Pressure 129/76 126/82 Pulse Oximetry 98 98 Oxygen Delivery Method Room Air Room Air BMI result Body Mass Index 37.6 Labs 08/18/22 13:57 08/18/22 13:56 Imaging Radiology Impressions: ITS Impressions Head CT 08/20/22 14:28 IMPRESSION: No acute intracranial pathology. Prominence of the lateral ventricles with a cavum septum pellucidum. Findings may be developmental in etiology. The possibility of aqueductal stenosis cannot be conclusively ruled out on the basis of this study. A follow-up MRI of the brain with a cine CSF flow study targeting the cerebral aqueduct could be obtained in follow-up for further assessment. Medications Medications Current Medications Acetaminophen (Acetaminophen 325 Mg Tablet) 650 mg PO Q6H PRN PRN Reason: Headache/Pain Mild Scale (1-3) Last Admin: 08/21/22 09:08 Dose: 650 mg Al Hydroxide/Mg Hydroxide (Magnesium Hydrox/Alum Hydrox 30 Ml Oral.Susp) 30 ml PO Q6H PRN PRN Reason: Heartburn/Nausea Calcium Carbonate/Cholecalciferol (Calcium + Vitamin D 250 Mg Tablet) 1,000 mg PO DAILY [facility] Last Admin: 08/25/22 09:18 Dose: 1,000 mg Cariprazine (Cariprazine Hcl 3 Mg Capsule) 6 mg PO DAILY [facility] Last Admin: 08/25/22 09:17 Dose: 6 mg Divalproex Sodium (Divalproex Sodium Er 500 Mg Tab.Er.24h) 1,000 mg PO BEDTIME [facility] Last Admin: 08/24/22 22:49 Dose: 1,000 mg Gabapentin (Gabapentin 600 Mg Tablet) 600 mg PO DAILY [facility] Last Admin: 08/25/22 09:17 Dose: 600 mg Hydroxyzine HCl (Hydroxyzine Hcl 25 Mg Tablet) 25 mg PO Q6H PRN PRN Reason: Anxiety Last Admin: 08/25/22 10:06 Dose: 25 mg Lamotrigine (Lamotrigine 100 Mg Tablet) 200 mg PO DAILY [facility] Last Admin: 08/25/22 09:18 Dose: 200 mg Lidocaine (Lidocaine 4 % Patch Adh..Patch) 2 patch TRANSDERMA DAILY [facility]; Protocol Last Admin: 08/25/22 09:41 Dose: Not Given Lorazepam (Lorazepam 0.5 Mg Tablet) 0.5 mg PO TID PRN PRN Reason: Anxiety Last Admin: 08/25/22 16:10 Dose: 0.5 mg Magnesium Hydroxide (Milk Of Magnesia 30 Ml Oral.Susp) 30 ml PO DAILY PRN PRN Reason: Constipation Nicotine (Nicotine 21 Mg Patch.Td24) 21 mg TRANSDERMA DAILY [facility] Last Admin: 08/25/22 12:07 Dose: 21 mg Nicotine Polacrilex (Nicotine Polacrilex Lozenge 4 Mg Lozenge) 4 mg BUCCAL Q2H PRN PRN Reason: Nicotine Cravings Last Admin: 08/25/22 16:15 Dose: 4 mg Prazosin HCl (Prazosin Hcl 1 Mg Capsule) 6 mg PO BEDTIME [facility]; Protocol Last Admin: 08/24/22 22:48 Dose: 6 mg Pregabalin (Pregabalin 75 Mg Capsule) 75 mg PO BEDTIME MEET Last Admin: 08/24/22 22:49 Dose: 75 mg Quetiapine Fumarate (Quetiapine Fumarate 300 Mg Tablet) 300 mg PO BEDTIME [facility] Last Admin: 08/24/22 22:49 Dose: 300 mg Quetiapine Fumarate (Quetiapine Fumarate 50 Mg Tablet) 50 mg PO BID PRN PRN Reason: anxiety Last Admin: 08/25/22 01:47 Dose: 50 mg Vitamin D (Cholecalciferol (Vitamin D3) 10 Mcg Tablet) 10 mcg PO DAILY [facility] Last Admin: 08/25/22 09:18 Dose: 10 mcg Allergies Allergies Allergy/AdvReac Type Severity Reaction Status Date / Time Penicillins Allergy Swelling Verified 08/06/22 11:05 Assessment & Plan Assessment & Plan (1) PTSD (post-traumatic stress disorder): Status: Acute Code(s): F43.10 - Post-traumatic stress disorder, unspecified (2) Bipolar disorder: Status: Acute Code(s): F31.9 - Bipolar disorder, unspecified (3) Complicated grieving: Status: Acute Code(s): F43.21 - Adjustment disorder with depressed mood Plan 47 yo female, history of PTSD, Bipolar disorder, complicated grieving, returns for admission due to active SI. Precipitant appears to be ' holiday, anniversaries of loss, complex grief over the of her ex- and multiple changes at home including the stress of moving. Plan: DC Latuda Vraylar 3 mg a.m Increase Seroquel to 300 mg hs to assist with mood, sleep Increase Trazodone to 100 mg hs to assist with sleep CAT Brain-hx concussion without eval 2020 EEG- hx concussion without eval 2020 08/21/22 Discontinue Trazodone Depakote ER 500 mg HS-3 day trial to assess if mood/sleep are assisted Lidocaine Patch to neck/back for pain mgt. 08/22: Recent start Depakote continue to assess. Consider Clonidine. Increased frequency of Lorazepam PRN temporarily. 08/23: Added Seroquel 50 mg BID PRN. 08/26/27: Increase Vraylar to 6 mg a.m. Clonidine 0.1 mg prn Decrease Depakote to 500 mg HS-taper Primghar 300 mg hs Chlorpromazine 50 mg tid prn agitation. (pt wanting to try something other than Seroquel) Patient educated on: medication risk/benefits and therapeutic strategies Informed Consent: understands and further education needed Reason for continued inpatient stay Substantial Risk for: rapid decompensation Time Spent With Patient Time: Total time managing care of this patient today ____ minutes.
[2022-08-25 17:13] LABS: Lamotrigine Lamictal 5.2 mcg/mL (2.5-15.0)
[2022-08-25 21:05] VITALS: BP 159/78; PULSE 89; TEMP 36.3; O2SAT 98
[2022-08-25] MEDS: Pregabalin 75 MG CAPSULE PO (21:11)
[2022-08-25] MEDS: QUEtiapine Fumarate 300 MG TABLET PO (21:11)
[2022-08-25] MEDS: Lithium Carbonate 300 MG CAPSULE PO (21:12)
[2022-08-25] MEDS: cloNIDine HCL 0.1 MG TABLET PO (21:12)
[2022-08-25] MEDS: Divalproex Sodium ER 500 MG TAB.ER.24H PO (21:12)
[2022-08-25] MEDS: Prazosin HCL 1 MG CAPSULE 6 MG PO (21:12)
[2022-08-26] MEDS: Gabapentin 600 MG TABLET PO (08:16)
[2022-08-26] MEDS: Cariprazine HCl 3 MG CAPSULE 6 MG PO (08:16)
[2022-08-26] MEDS: Cholecalciferol (Vitamin D3) 10 MCG TABLET PO (08:17)
[2022-08-26] MEDS: lamoTRIgine 100 MG TABLET 200 MG PO (08:17)
[2022-08-26] MEDS: Calcium + Vitamin D 250 MG TABLET 1000 MG PO (08:17)
[2022-08-26 09:47] VITALS: BP 126/89; PULSE 101; RESP 16; TEMP 36.1; O2SAT 99
[2022-08-26] MEDS: hydrOXYzine HCL 25 MG TABLET PO ×2 (09:52→20:01)
[2022-08-26] MEDS: Nicotine Polacrilex Lozenge 4 MG LOZENGE BUCCAL ×3 (09:52→20:02)
[2022-08-26] MEDS: Nicotine 21 MG PATCH.TD24 TRANSDERMA (09:53)
[2022-08-26] MEDS: LORazepam 0.5 MG TABLET PO ×3 (11:04→20:02)
[2022-08-26] MEDS: Milk of Magnesia 30 ML ORAL.SUSP PO (11:10)
[2022-08-26] MEDS: chlorproMAZINE HCl 25 MG TABLET 50 MG PO (16:40)
--- NOTE | 2022-08-26 16:51 | HO.PSYCHPN ---
Subjective Subjective Date of Service: 08/26/22 Reason For Visit: PTSD. Bipolar disorder Subjective Notes: Conditional Voluntary Healthcare Proxy: No Guardianship: No Medical Problems Affecting Mental Status: No Interim History: Meeting with pt and . Review of all medications, purpose, dosing, plan. Both agree with plan of care. Pt denies SE, sleep is still an issue however. Pt to begin MVI Review of EEG and CAT results-copies provided. Recommended follow up OP neuro- pt and agree, will make appt for follow up. Discussed current issues of concern-upcoming move to in-laws home, discord with Rima's father, loss of ex-, pt's grief, attempts to help her children grieve and daughters having his ashes in the home. discussed his impression of these issues and is fully supportive of Rima, citing several times in our meeting that they are a team and approach family issues together. Pt will remain on [place], we will titrate and discussed discharge for 08/31 which both agree is appropriate. Medication Compliance: Intermittent (agitated in the a.m. and struggles with compliance) Side effects from medications: No Attending Groups: Yes Review of Systems Acute medical concerns: No Medical Review of Systems: unchanged Mental Status Exam Mental Status Exam Patient Appearance: Appropriate Patient Orientation: Person, Place, Time and Situation Level of Consciousness: Alert Patient Behavior: Appropriate, Talkative and Cooperative Mood Description: Anxious and Apprehensive Affect Description: Anxious and Apprehensive Patient Cognition Impaired: No Ability to Follow Directions: Good Speech Pattern: Spontaneous Speech Memory Description: Intact Hallucinations: None Delusions: Not Present Thought Process: Intact and Goal Oriented Thought Content: positive for Intact and positive for Goal Oriented Depressive Symptoms: Increased Anxiety and Thoughts of /Suicide (denies) Judgement: Good Diagnostics Vital Signs (24Hr): Vital Signs - 24 hr 08/25/22 21:05 08/26/22 09:47 Temperature 97.3 F 97 F Pulse Rate 89 101 H Respiratory Rate 16 Blood Pressure 159/78 H 126/89 Pulse Oximetry 98 99 Oxygen Delivery Method Room Air BMI result Body Mass Index 37.6 Labs 08/18/22 13:57 08/18/22 13:56 Labs: Laboratory Results - last 48 hr 08/20/22 08:28 Lamotrigine 5.2 Imaging Radiology Impressions: [facility] Impressions Head CT 08/20/22 14:28 IMPRESSION: No acute intracranial pathology. Prominence of the lateral ventricles with a cavum septum pellucidum. Findings may be developmental in etiology. The possibility of aqueductal stenosis cannot be conclusively ruled out on the basis of this study. A follow-up MRI of the brain with a cine CSF flow study targeting the cerebral aqueduct could be obtained in follow-up for further assessment. Medications Medications Current Medications Acetaminophen (Acetaminophen 325 Mg Tablet) 650 mg PO Q6H PRN PRN Reason: Headache/Pain Mild Scale (1-3) Last Admin: 08/21/22 09:08 Dose: 650 mg Al Hydroxide/Mg Hydroxide (Magnesium Hydrox/Alum Hydrox 30 Ml Oral.Susp) 30 ml PO Q6H PRN PRN Reason: Heartburn/Nausea Calcium Carbonate/Cholecalciferol (Calcium + Vitamin D 250 Mg Tablet) 1,000 mg PO DAILY [facility] Last Admin: 08/26/22 08:17 Dose: 1,000 mg Cariprazine (Cariprazine Hcl 3 Mg Capsule) 6 mg PO DAILY [facility] Last Admin: 08/26/22 08:16 Dose: 6 mg Chlorpromazine HCl (Chlorpromazine Hcl 25 Mg Tablet) 50 mg PO TID PRN PRN Reason: agitation Last Admin: 08/26/22 16:40 Dose: 50 mg Clonidine HCl (Clonidine Hcl 0.1 Mg Tablet) 0.1 mg PO BID PRN; Protocol PRN Reason: anxiety Last Admin: 08/25/22 21:12 Dose: 0.1 mg Divalproex Sodium (Divalproex Sodium Er 500 Mg Tab.Er.24h) 500 mg PO BEDTIME [facility] Last Admin: 08/25/22 21:12 Dose: 500 mg Gabapentin (Gabapentin 600 Mg Tablet) 600 mg PO DAILY [facility] Last Admin: 08/26/22 08:16 Dose: 600 mg Hydroxyzine HCl (Hydroxyzine Hcl 25 Mg Tablet) 25 mg PO Q6H PRN PRN Reason: Anxiety Last Admin: 08/26/22 09:52 Dose: 25 mg Lamotrigine (Lamotrigine 100 Mg Tablet) 200 mg PO DAILY [facility] Last Admin: 08/26/22 08:17 Dose: 200 mg Lidocaine (Lidocaine 4 % Patch Adh..Patch) 2 patch TRANSDERMA DAILY [facility]; Protocol Last Admin: 08/26/22 08:25 Dose: Not Given [place] Carbonate ([place] Carbonate 300 Mg Capsule) 300 mg PO BEDTIME [facility] Last Admin: 08/25/22 21:12 Dose: 300 mg Lorazepam (Lorazepam 0.5 Mg Tablet) 0.5 mg PO TID PRN PRN Reason: Anxiety Last Admin: 08/26/22 14:34 Dose: 0.5 mg Magnesium Hydroxide (Milk Of Magnesia 30 Ml Oral.Susp) 30 ml PO DAILY PRN PRN Reason: Constipation Last Admin: 08/26/22 11:10 Dose: 30 ml Nicotine (Nicotine 21 Mg Patch.Td24) 21 mg TRANSDERMA DAILY [facility] Last Admin: 08/26/22 09:53 Dose: 21 mg Nicotine Polacrilex (Nicotine Polacrilex Lozenge 4 Mg Lozenge) 4 mg BUCCAL Q2H PRN PRN Reason: Nicotine Cravings Last Admin: 08/26/22 14:34 Dose: 4 mg Prazosin HCl (Prazosin Hcl 1 Mg Capsule) 6 mg PO BEDTIME [facility]; Protocol Last Admin: 08/25/22 21:12 Dose: 6 mg Pregabalin (Pregabalin 75 Mg Capsule) 75 mg PO BEDTIME [facility] Last Admin: 08/25/22 21:11 Dose: 75 mg Quetiapine Fumarate (Quetiapine Fumarate 300 Mg Tablet) 300 mg PO BEDTIME [facility] Last Admin: 08/25/22 21:11 Dose: 300 mg Vitamin D (Cholecalciferol (Vitamin D3) 10 Mcg Tablet) 10 mcg PO DAILY [facility] Last Admin: 08/26/22 08:17 Dose: 10 mcg Allergies Allergies Allergy/AdvReac Type Severity Reaction Status Date / Time Penicillins Allergy Swelling Verified 08/06/22 11:05 Assessment & Plan Assessment & Plan (1) PTSD (post-traumatic stress disorder): Status: Acute Code(s): F43.10 - Post-traumatic stress disorder, unspecified (2) Bipolar disorder: Status: Acute Code(s): F31.9 - Bipolar disorder, unspecified (3) Complicated grieving: Status: Acute Code(s): F43.21 - Adjustment disorder with depressed mood Plan 47 yo female, history of PTSD, Bipolar disorder, complicated grieving, returns for admission due to active SI. Precipitant appears to be fathers' day holiday, anniversaries of loss, complex grief over the of her ex- and multiple changes at home including the stress of moving. Plan: DC Latuda Vraylar 3 mg a.m Increase Seroquel to 300 mg hs to assist with mood, sleep Increase Trazodone to 100 mg hs to assist with sleep CAT Brain-hx concussion without eval 2019 EEG- hx concussion without eval 201908/21/22 Discontinue Trazodone Depakote ER 500 mg HS-3 day trial to assess if mood/sleep are assisted Lidocaine Patch to neck/back for pain mgt. 08/22: Recent start Depakote continue to assess. Consider Clonidine. Increased frequency of Lorazepam PRN temporarily. 08/23: Added Seroquel 50 mg BID PRN. 08/24/22 : Continue current regime 08/26/22-Increase [place] 08/27 to 300 mg bid Decrease Depakote 08/27 to 250 mg HS Patient educated on: medication risk/benefits and therapeutic strategies Guardian/Caregiver educated on: medication risk/benefits and therapeutic strategies Informed Consent: understands Reason for continued inpatient stay Substantial Risk for: rapid decompensation Time Spent With Patient Time: Total time managing care of this patient today ____ minutes.
[2022-08-26 19:46] VITALS: BP 149/96; PULSE 96; TEMP 36.1; O2SAT 100
[2022-08-26] MEDS: Pregabalin 75 MG CAPSULE PO (20:01)
[2022-08-26] MEDS: QUEtiapine Fumarate 300 MG TABLET PO (20:01)
[2022-08-26] MEDS: cloNIDine HCL 0.1 MG TABLET PO (20:01)
[2022-08-26] MEDS: Lithium Carbonate 300 MG CAPSULE PO (20:01)
[2022-08-26] MEDS: Prazosin HCL 1 MG CAPSULE 6 MG PO (20:02)
[2022-08-26] MEDS: Divalproex Sodium ER 500 MG TAB.ER.24H PO (20:02)
[2022-08-27] MEDS: LORazepam 0.5 MG TABLET PO ×3 (01:51→13:13)
[2022-08-27] MEDS: chlorproMAZINE HCl 25 MG TABLET 50 MG PO (01:51)
[2022-08-27 04:00] VITALS: BP 110/72
[2022-08-27] MEDS: hydrOXYzine HCL 25 MG TABLET PO (04:03)
[2022-08-27] MEDS: cloNIDine HCL 0.1 MG TABLET PO (04:04)
[2022-08-27 06:00] VITALS: BP 117/70; PULSE 90; RESP 16; TEMP 35.9; O2SAT 98
[2022-08-27 07:00] VITALS: BMI 37.5
[2022-08-27] MEDS: Multivitamin TABLET 1 TAB PO (08:45)
[2022-08-27] MEDS: Calcium + Vitamin D 250 MG TABLET 1000 MG PO (08:45)
[2022-08-27] MEDS: Lithium Carbonate 300 MG CAPSULE PO (08:46)
[2022-08-27] MEDS: Cariprazine HCl 3 MG CAPSULE 6 MG PO (08:46)
[2022-08-27] MEDS: lamoTRIgine 100 MG TABLET 200 MG PO (08:46)
[2022-08-27] MEDS: Cholecalciferol (Vitamin D3) 10 MCG TABLET PO (08:46)
[2022-08-27] MEDS: Gabapentin 600 MG TABLET PO (08:46)
[2022-08-27] MEDS: Nicotine 21 MG PATCH.TD24 TRANSDERMA (09:34)
[2022-08-27] MEDS: Nicotine Polacrilex Lozenge 4 MG LOZENGE BUCCAL (09:36)
--- NOTE | 2022-08-27 16:16 | P.PNPSI_ITS ---
Subjective Subjective Date of Service: 08/27/22 Reason For Visit: PTSD. Bipolar disorder Subjective Notes: Conditional Voluntary Healthcare Proxy: No Guardianship: No Medical Problems Affecting Mental Status: No Interim History: Pt asked to meet. She had met with Ana Rosa NUÑEZ and has made two decisions. She asks to discharge to family today and return to her previous medication regime. She reports continued feelings of being triggered in the milieu and wants to return home to be with her family. She reports being awake during the night and wants to return to her med regime. She also reports, at home, she was taking klonopin 1 mg bid and not getting that dosage here, today being the first time this was discussed. She will have a med appt next week, has referrals for OP treatment, reports she has no SI/HI, plan or intent, contracts for her safety, identifies her and 21 yo daughter as supports and wants to participate in packing for the anticipated move and preparation to sell the home. Per pt request, Vraylar was discontinued, [place] was discontinued, Depakote tap er was completed and PRN medications Clonidine, Chlorpromazine were unhelpful, not used per pt report and were discontinued. Klonopin was re-started at 1 mg bid, Wellbutrin XL 150 mg was re-started Lyrica, Gabapentin, Prazosin, Lamictal were left intact. Seroquel was returned to 200 mg at HS. Pt would not consider continuing her admission to assess efficacy of these adjustments. Medication Compliance: Yes Side effects from medications: No Attending Groups: Yes Review of Systems Acute medical concerns: No Medical Review of Systems: unchanged Mental Status Exam Mental Status Exam Patient Appearance: Appropriate Patient Orientation: Person, Place, Time and Situation Level of Consciousness: Alert Patient Behavior: Talkative and Good Eye Contact Mood Description: Appropriate Affect Description: Appropriate Patient Cognition Impaired: No Ability to Follow Directions: Good Speech Pattern: Spontaneous Speech Memory Description: Intact Hallucinations: None Delusions: Not Present Thought Process: Goal Oriented Thought Content: positive for Goal Oriented Depressive Symptoms: Thoughts of /Suicide (denies) Judgement: Good Diagnostics Vital Signs (24Hr): Vital Signs - 24 hr 08/26/22 19:46 08/27/22 04:00 08/27/22 06:00 Temperature 97.0 F 96.6 F L Pulse Rate 96 90 Respiratory Rate 16 Blood Pressure 149/96 H 110/72 117/70 Pulse Oximetry 100 98 Oxygen Delivery Method Room Air Room Air BMI result Body Mass Index 37.5 Labs 08/18/22 13:57 08/18/22 13:56 Labs: Laboratory Results - last 48 hr 08/20/22 08:28 Lamotrigine 5.2 Imaging Radiology Impressions: [facility] Impressions Head CT 08/20/22 14:28 IMPRESSION: No acute intracranial pathology. Prominence of the lateral ventricles with a cavum septum pellucidum. Findings may be developmental in etiology. The possibility of aqueductal stenosis cannot be conclusively ruled out on the basis of this study. A follow-up MRI of the brain with a cine CSF flow study targeting the cerebral aqueduct could be obtained in follow-up for further assessment. Medications Allergies Allergies Allergy/AdvReac Type Severity Reaction Status Date / Time Penicillins Allergy Swelling Verified 08/06/22 11:05 Assessment & Plan Assessment & Plan (1) PTSD (post-traumatic stress disorder): Status: Acute Code(s): F43.10 - Post-traumatic stress disorder, unspecified (2) Bipolar disorder: Status: Acute Code(s): F31.9 - Bipolar disorder, unspecified (3) Complicated grieving: Status: Acute Code(s): F43.21 - Adjustment disorder with depressed mood Plan 47 yo female, history of PTSD, Bipolar disorder, complicated grieving, returns for admission due to active SI. Precipitant appears to be holiday, anniversaries of loss, complex grief over the of her ex- and multiple changes at home including the stress of moving. Plan: DC Latuda Vraylar 3 mg a.m Increase Seroquel to 300 mg hs to assist with mood, sleep Increase Trazodone to 100 mg hs to assist with sleep CAT Brain-hx concussion without eval 2019 EEG- hx concussion without eval 2020 08/21/22 Discontinue Trazodone Depakote ER 500 mg HS-3 day trial to assess if mood/sleep are assisted Lidocaine Patch to neck/back for pain mgt. 08/22: Recent start Depakote continue to assess. Consider Clonidine. Increased frequency of Lorazepam PRN temporarily. 08/23: Added Seroquel 50 mg BID PRN. 08/24/22 : Continue current regime 08/27/22: Discharge with above noted changes. Patient educated on: medication risk/benefits and therapeutic strategies Informed Consent: understands Reason for continued inpatient stay Substantial Risk for: stable for discharge Time Spent With Patient Time: Total time managing care of this patient today ____ minutes.
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
--- NOTE | 2022-08-28 10:31 | PM.EVENT ---
Documented by User: Carola Guerra APRN 08/28/22 10:33 Event Note Date of Service: 08/28/22 Event Note: Neurology follow up appt made with Dr. Mcnulty for 09/15/22 8am. Message left for pt at [phone] Time Spent With Patient Time: Total time managing care of this patient today ____ minutes. Documented by User: Madan Falcon MD 10/01/22 10:12 Event Note Date of Service: 10/01/22
== END 2022-08-27 14:20 | disposition home or self-care (01) | DRG 881 ==
LOC: HO.ED 15:48 → HO.PM5 08-19 13:37
PROVIDERS: Admitting Provider Clinical Nurse Specialist Psychiatric/Mental Health, Adult; Emergency Provider Emergency Medicine; Visit Provider Clinical Nurse Specialist Psychiatric/Mental Health, Adult
DX: F43.21 Adjustment disorder with depressed mood (principal); R45.851 Suicidal ideations; F31.9 Bipolar disorder, unspecified; F43.10 Post-traumatic stress disorder, unspecified; M79.7 Fibromyalgia; F17.210 Nicotine dependence, cigarettes, uncomplicated; Z20.822 Contact with and (suspected) exposure to COVID-19; Z71.6 Tobacco abuse counseling; Z79.899 Other long term (current) drug therapy
CPT/HCPCS: 36415; 70450; 80053; 80061; 80143; 80175; 80179; 80307; 81003; 81025; 82607; 82746; 83036; 83735; 84439; 84443; 85025; 87635; 93005; 95816; 99285; S9485

== ENCOUNTER → 2022-08-19 13:11 | Outpatient (BNV) | payer OTHER, SELFPAY | PROVIDERS: Admitting Provider Clinical Nurse Specialist Psychiatric/Mental Health, Adult; Emergency Provider Emergency Medicine; Visit Provider Clinical Nurse Specialist Psychiatric/Mental Health, Adult | DX: F43.10 Post-traumatic stress disorder, unspecified (principal); F31.9 Bipolar disorder, unspecified; F43.21 Adjustment disorder with depressed mood | CPT/HCPCS: 90792; 99231; 99232; 99239; 99499 ==

== ENCOUNTER 2022-11-16 13:10 | Inpatient (IN) | payer OTHER, SELFPAY ==
[2022-11-16 13:14] VITALS: BP 143/78; PULSE 101; O2SAT 99
[2022-11-16 13:17] VITALS: BP 152/94; PULSE 98; RESP 16; TEMP 35.7; O2SAT 97; BMI 36.6
--- NOTE | 2022-11-16 13:20 | ED_ITS ---
HPI - Psych General Chief Complaint: Psychiatric Symptoms Stated Complaint: CRISIS Source: patient Mode of arrival: EMS Limitations: no limitations History of Present Illness HPI Narrative: Patient comes to the emergency room complaining of worsening depression and suicidal ideation. Patient states that since yesterday, she has been contemplating to commit suicide. Patient states that yesterday she almost jumped from a second-story building, today she was contemplating slicing her wrists. Patient was able to stop herself and call for help, then came to the hospital. Patient states that she is compliant with her medications. Patient denies drug or alcohol abuse. Related Data Home Medications Medication Instructions Recorded Confirmed clonazepam 1 mg tablet 1 mg PO BID@0900,199911/16/22 11/16/22 lamotrigine 150 mg tablet 300 mg PO DAILY 11/16/22 11/16/22 lorazepam 0.5 mg tablet 0.5 mg PO DAILY PRN anxiety 11/16/22 11/16/22 lurasidone 60 mg tablet 60 mg PO DAILY 11/16/22 11/16/22 prazosin 2 mg capsule 2 mg PO TID PRN anxiety 11/16/22 11/16/22 pregabalin 100 mg capsule 100 mg PO BEDTIME 11/16/22 11/16/22 zolpidem 10 mg tablet 10 mg PO BEDTIME PRN Anxiety 11/16/22 11/16/22 Previous Rx's Medication Instructions Recorded bupropion HCl 150 mg 24 hr tablet, 150 mg PO DAILY #14 tabs 08/27/22 extended release gabapentin 600 mg tablet 600 mg PO DAILY #14 tabs 08/27/22 nicotine (polacrilex) 4 mg buccal 4 mg buccal Q2H PRN Nicotine 08/27/22 lozenge Cravings #60 ea nicotine 21 mg/24 hr daily 21 mg transdermal DAILY #30 ea 08/27/22 transdermal patch prazosin 2 mg capsule 6 mg (3 x 2 mg) PO BEDTIME 10 days 08/27/22 #42 caps quetiapine 200 mg tablet 200 mg PO BEDTIME #14 tabs 08/27/22 Allergies Allergy/AdvReac Type Severity Reaction Status Date / Time Penicillins Allergy Swelling Verified 08/06/22 11:05 Review of Systems 2 Review of Systems: Constitutional : No Weight loss, No Fever, No Chills, No Night Sweats, No Fatigue, No Malaise ENT/Mouth : No Hearing loss, No Ear Pain, No Nasal Congestion, No Sinus Pain, No Hoarseness, No sore throat, No Rhinorrhea, No Swallowing Difficulty Eyes: No Eye Pain, No Swelling, No Redness, No Foreign Body, No Discharge, No Vision Changes Cardiovascular : No Chest Pain, No SOB, No Dyspnea on Exertion, No Orthopnea, No Edema, No Palpitations Respiratory : No Cough, No Sputum, No Wheezing, No Smoke Exposure, No Dyspnea Gastrointestinal : No Nausea, No Vomiting, No Diarrhea, No Constipation, No abdominal Pain, No Hematochezia, No Melena Genitourinary : no irregular bleeding, No Dysuria, No Urinary Frequency, No Hematuria, No Urinary Incontinence, No Urgency, No Flank Pain, No Urinary Flow Changes, No Hesitancy Musculoskeletal : No joint pain, No Myalgias, No Joint Swelling Skin : No Skin Lesions, No rash Neuro : No Weakness, No Numbness, No Paresthesias, No Loss of Consciousness, No Dizziness, No Headache Psych : No Anxiety/Panic, complaining of depression and suicidal ideation, no homicidal ideation Heme/Lymph: No Bruising, No Bleeding,No Lymphadenopathy Endocrine : No Polyuria, No Polydipsia, No Temperature Intolerance PMFSH Past Medical History Medical History Acute anxiety Fibromyalgia PTSD (post-traumatic stress disorder) Bipolar disorder Social History Social History Household Members: Spouse and Children Household Members Other:: , daughter, adult daughter Housing: House Do you presently have visiting nurse or other home services: No Alcohol intake: never Patient Tobacco Use Status: Current everyday Tobacco user Tobacco use type: Smokeless Tobacco Smoked in Last 30 Days: Yes e-Cigarette/Vaping Use: Currently Using Second Hand Smoke Exposure: No Use of substances other than those prescribed or required for medical reasons: Yes Substance Use Type: Marijuana Substance Use Frequency: Occasionally Advance Directives: No Advance Directives Information Provided: Yes service: No Sexual orientation: Straight/Heterosexual Physical Exam 2 Vital Signs: Vital Signs: Last Vital Signs Temp 96.3 F L 11/16/22 13:17 Pulse 98 11/16/22 13:17 Resp 16 11/16/22 13:17 BP 152/94 H 11/16/22 13:17 Pulse Ox 97 11/16/22 13:17 O2 Del Method Room Air 11/16/22 13:17 BMI result Body Mass Index 36.6 Const: Other: Appearance: Alert. Oriented X3. No acute distress. Eyes: Pupils equal, round and reactive to light. ENT: Pharynx normal. Neck: Normal inspection. Neck supple. No lymph nodes noted. No crepitus CVS: Normal heart rate and rhythm. Pulses normal. Normal S1 and S2 Respiratory: No respiratory distress. Breath sounds normal. No Wheezing. No rales Abdomen: Soft and nontender. No rigidity. No distention. Skin: Skin warm and dry. Normal skin color. Normal skin turgor. Extremities: No lower extremity edema. No Lacerations. No Rash Neuro: Oriented X 3. No motor deficit. No sensory deficit. Moving all extremities. No slurred speech. CN 2 through 12 grossly intact Psych: calm, cooperative, normal affect Course Course Course Narrative: -all of patient's labs pending -care team consult pending -patient is on a Section 12 -physician observation started at 13:22 -15:25 care team evaluated the patient, patient remains on a Section 12, patient will be an inpatient bed search Medical Decision Making Medical Decision Making [facility] Narrative: -My interpretation of labs: Normal hematology and chemistry unremarkable, U tox positive for benzos and THC -patient remains on a Section 12, inpatient bed search Differential Diagnosis Differential Diagnoses: The differential diagnosis associated with the presentation includes (Anxiety, depression, PTSD) Admission/Observation Consideration of admission/observation: Escalation of care including admission/observation considered (Patient will be under observation until seen by behavioral health, likely to be admitted to psychiatry) Lab Data 11/16/22 13:57 11/16/22 13:57 Labs: Lab Results 11/16/22 11/16/22 Range/Units 13:34 13:57 WBC 9.9 (4.8-10.8) X10*3/uL RBC 4.50 (4.20-5.50) X10*6/uL Hgb 13.0 (12.0-16.0) g/dl Hct 40.6 (37.0-47.0) % MCV 90.2 (80.0-98.0) fL MCH 28.9 (27.0-33.0) pg MCHC 32.0 (31.0-35.0) g/dl RDW 14.2 (11.0-16.0) % Plt Count 361 (160-400) X10*3/uL MPV 10.3 (9.4-12.3) fL Immature Gran % (Auto) 0.3 (0.0-0.4) % Neut % (Auto) 68.4 (45-73) % Lymph % (Auto) 22.1 (20-40) % [place] % (Auto) 5.1 (2-11) % Eos % (Auto) 3.7 (0-4) % Baso % (Auto) 0.4 (0-2) % Lymph # (Auto) 2.2 (1.2-4.9) X10*3/uL [place] # (Auto) 0.5 (0.1-1.2) X10*3/uL Eos # (Auto) 0.4 (0.0-0.4) X10*3/uL Baso # (Auto) 0.0 (0.0-0.2) X10*3/uL Abs Immat Gran (auto) 0.03 (0.00-0.03) X10*3/uL Absolute Neuts (auto) 6.8 (2.0-8.3) x10*3/uL Absolute Nucleated RBC 0.000 (0.0-0.012) X10*3/uL Nucleated RBC % (auto) 0.0 (0.0-0.2) /100WBC Sodium 141 (135-145) mmol/L Potassium 4.2 (3.3-5.1) mmol/L Chloride 107 (96-108) mmol/L Carbon Dioxide 29 (22-29) mmol/L Anion Gap 9 L (12-20) BUN 17 H (9-16) mg/dL Creatinine 0.93 (0.5-1.4) mg/dL Estim Creat Clear Calc 77.4 Estimated GFR > 60 Random Glucose 99 (60-115) mg/dL Calcium 9.7 (8.4-10.2) mg/dL Total Bilirubin 0.2 (0.0-1.0) mg/dL Direct Bilirubin < 0.2 (0.0-0.5) mg/dL AST 10 (5-31) U/L ALT 7 (0-31) U/L Alkaline Phosphatase 137 H (39-117) U/L Total Protein 7.2 (6.5-8.0) g/dL Albumin 4.2 (3.5-5.0) g/dL Urine Color Yellow Urine Appearance Cloudy Urine pH 6.5 (5.0-9.0) Ur Specific [place] 1.025 (1.005-1.025) Urine Protein Trace (Neg-Trace) mg/dL Urine Glucose (UA) Negative (Negative) mg/dL Urine Ketones Negative (Negative) mg/dL Urine Blood Negative (Negative) Urine Nitrite Negative (Negative) Ur Leukocyte Esterase Trace H (Negative) Urine RBC 0-2 (0-2) /HPF Urine WBC 0-5 (0-5) /HPF Ur Squamous Epith Cells >20 (0-2) /HPF Urine Bacteria 1+ (None Seen) Hyaline Casts 0-2 (0-2) /LPF Urine Test NEGATIVE (NEGATIVE) Urine Opiates Screen Not Detected (Not Detect) Urine Fentanyl Screen Not Detected (Not Detect) Ur Barbiturates Screen Not Detected (Not Detect) Ur Phencyclidine Scrn Not Detected (Not Detect) Ur Amphetamines Screen Not Detected (Not Detect) U Benzodiazepines Scrn POSITIVE H (Not Detect) Urine Cocaine Screen Not Detected (Not Detect) U Marijuana (THC) Screen POSITIVE H (Not Detect) Ethyl Alcohol < 10 mg/dL Discharge Plan Discharge Clinical Impression: Suicidal ideation, Depression Patient Disposition: Still a Patient Prescriptions: No Action nicotine 21 mg/24 hr Patch 24 Hour 21 mg transdermal DAILY Qty: 30 0RF nicotine (polacrilex) 4 mg Lozenge 4 mg buccal Q2H PRN (Reason: Nicotine Cravings) Qty: 60 0RF bupropion HCl 150 mg Tablet Extended Release 24 Hr 150 mg PO DAILY Qty: 14 0RF gabapentin 600 mg Tablet 600 mg PO DAILY Qty: 14 0RF quetiapine 200 mg Tablet 200 mg PO BEDTIME Qty: 14 0RF prazosin 2 mg capsule 6 mg PO BEDTIME 10 Days Qty: 42 0RF lamotrigine 150 mg tablet 300 mg PO DAILY lorazepam 0.5 mg tablet 0.5 mg PO DAILY PRN (Reason: anxiety ) zolpidem 10 mg tablet 10 mg PO BEDTIME PRN (Reason: Anxiety) prazosin 2 mg capsule 2 mg PO TID PRN (Reason: anxiety ) pregabalin 100 mg capsule 100 mg PO BEDTIME lurasidone 60 mg tablet 60 mg PO DAILY clonazepam 1 mg tablet 1 mg PO BID@0900,1999 Interventions: [place]-Suicide Risk Severity Scale Last Done: 11/16/22 13:48
[2022-11-16 13:51] LABS: Appearance Urine Cloudy; Color Urine Yellow; Glucose Urine UA Negative (Negative); Leukocyte Esterase Urine Trace (Negative); Nitrite Urine Negative (Negative); PH 6.5 (5.0-9.0); Specific Gravity - Urine 1.025 (1.005-1.025); UMIC TRIGGER UACC YES; Urine Blood Negative (Negative); Urine Ketones Negative (Negative); Urine Protein Trace mg/dL (Neg-Trace)
--- NOTE | 2022-11-16 13:52 | PC.NURSE ---
Patient arrived from home with thoughts of SI/HI. States that she has been having thoughts of harming herself and her mother in law for the last 5 months. Patient nadir, stating her brothers birthday is comng up and he , and her ex hung himself. States has been living with her in laws and the house is in foreclosure leaving them with no where to go. Reports recent med changes that have had little effect.
[2022-11-16 13:57] LABS: Amphetamine Screen Urine Not Detected (Not Detect); Barbiturates, Urine Not Detected (Not Detect); Benzodiazepines Screen Urine POSITIVE (Not Detect); Cannabinoid Screen Urine POSITIVE (Not Detect); Cocaine Screen Urine Not Detected (Not Detect); Fentanyl, urine Not Detected (Not Detect); Opiate Screen Urine Not Detected (Not Detect); Phencyclidine Screen Urine Not Detected (Not Detect)
[2022-11-16 14:01] LABS: MANUAL DIFF FLAG NO
[2022-11-16 14:02] LABS: Urine Pregnancy NEGATIVE (NEGATIVE)
[2022-11-16 14:03] LABS: UPreg QC Valid YES
[2022-11-16 14:04] LABS: Bacteria Urine 1+ (None Seen); Hyaline Casts Urine 0-2 /LPF (0-2); RBC Urine 0-2 /HPF (0-2); Squamous Epithelial Cell Urine >20 /HPF (0-2); WBC Urine 0-5 /HPF (0-5)
[2022-11-16 14:06] LABS: Basophils Percent Auto 0.4 % (0-2); Eosinophils Absolute Auto 0.4 X10*3/uL (0.0-0.4); Eosinophils Percent Auto 3.7 % (0-4); Hematocrit 40.6 % (37.0-47.0); Imm Gran Abs Auto 0.03 X10*3/uL (0.00-0.03); Imm Gran Pct Auto 0.3 % (0.0-0.4); Lymphocytes Absolute Auto 2.2 X10*3/uL (1.2-4.9); Lymphocytes Percent Auto 22.1 % (20-40); Mean Corpuscular Hemoglobin 28.9 pg (27.0-33.0); Mean Corpuscular Volume 90.2 fL (80.0-98.0); Mean Platelet Volume 10.3 fL (9.4-12.3); Monocytes Absolute Auto 0.5 X10*3/uL (0.1-1.2); Monocytes Percent Auto 5.1 % (2-11); Neutrophils Absolute Auto 6.8 x10*3/uL (2.0-8.3); Neutrophils Percent Auto 68.4 % (45-73); Platelet Count 361 X10*3/uL (160-400); Red Cell Distribution Width 14.2 % (11.0-16.0); White Blood Count 9.9 X10*3/uL (4.8-10.8)
[2022-11-16 14:24] LABS: Alanine Aminotransferase 7 U/L (0-31); Albumin Level 4.2 g/dL (3.5-5.0); Alkaline Phosphatase 137 U/L (39-117); Anion Gap 9 (12-20); Aspartate Amino Transferase 10 U/L (5-31); Bilirubin Direct < 0.2 mg/dL (0.0-0.5); Bilirubin Total 0.2 mg/dL (0.0-1.0); Blood Urea Nitrogen 17 mg/dL (9-16); Calcium 9.7 mg/dL (8.4-10.2); Carbon Dioxide 29 mmol/L (22-29); Chloride 107 mmol/L (96-108); Creatinine Clr Calc Pharmacy 77.4; Estimated Glomerular Filt Rate > 60; Ethanol < 10 mg/dL; Glucose Random 99 mg/dL (60-115); Potassium 4.2 mmol/L (3.3-5.1); Sodium 141 mmol/L (135-145); Total Protein 7.2 g/dL (6.5-8.0)
--- NOTE | 2022-11-16 16:24 | PHA.MEDREC ---
Pharmacy Consult ? Medication Reconciliation Pharmacy has completed the medication reconciliation. Reviewed med rec done by nursing
[2022-11-16] MEDS: Gabapentin 600 MG TABLET PO (17:22)
[2022-11-16] MEDS: buPROPion HCl XL 150 MG TAB.ER.24H PO (17:22)
[2022-11-16] MEDS: Nicotine 21 MG PATCH.TD24 TRANSDERMA (17:22)
[2022-11-16] MEDS: lamoTRIgine 100 MG TABLET 300 MG PO (17:22)
[2022-11-16] MEDS: clonazePAM 1 MG TABLET PO (20:32)
[2022-11-16] MEDS: QUEtiapine Fumarate 200 MG TABLET PO (20:32)
[2022-11-16] MEDS: Prazosin HCL 1 MG CAPSULE 6 MG PO (20:32)
[2022-11-16 20:34] VITALS: BP 136/92; PULSE 88; RESP 16; TEMP 36.2; O2SAT 97
[2022-11-16] MEDS: Pregabalin 100 MG CAPSULE PO (20:34)
[2022-11-16] MEDS: Zolpidem Tartrate 5 MG TABLET PO (20:34)
[2022-11-16 21:48] LABS: COVID-19 Test Negative (Negative); IDNOW Serial# 08D9AD1C
--- NOTE | 2022-11-17 | ECG_ITS ---
Test Reason : ASSESS QT INTERVAL Blood Pressure : / mmHG Vent. Rate : 081 BPM Atrial Rate : 081 BPM P-R Int : 176 ms QRS Dur : 074 ms QT Int : 346 ms P-R-T Axes : 063 040 042 degrees QTc Int : 401 ms Normal sinus rhythm Normal ECG When compared with ECG of 19-AUG-2022 08:38, No significant change was found Referred By: Luis Patel Electronically Signed By:MIRTA GUZMÁN
[2022-11-17] MEDS: LORazepam 0.5 MG TABLET PO (05:35)
[2022-11-17] MEDS: Acetaminophen 325 MG TABLET 975 MG PO (05:35)
[2022-11-17 05:36] VITALS: BP 124/75; PULSE 98; RESP 16; TEMP 36.3; O2SAT 97
--- NOTE | 2022-11-17 05:44 | PC.NURSE ---
Patient slept through the night, no distress observed/reported, behavior non concerning, disposition per care team is section 12 inpatient bed search, labs completed/resulted, medication compliant, Pre-accepted to for 11/17/22 per care team, VSS, will continue to monitor.
--- NOTE | 2022-11-17 07:22 | PC.NURSE ---
patient appears to remain asleep at present respirations are even and unlabored patient appears in no distress
[2022-11-17] MEDS: buPROPion HCl XL 150 MG TAB.ER.24H PO (10:20)
[2022-11-17] MEDS: lamoTRIgine 100 MG TABLET 300 MG PO (10:20)
[2022-11-17] MEDS: clonazePAM 1 MG TABLET PO ×2 (10:20→21:57)
[2022-11-17] MEDS: Nicotine 21 MG PATCH.TD24 TRANSDERMA (10:20)
[2022-11-17] MEDS: Gabapentin 600 MG TABLET PO (10:21)
[2022-11-17 13:39] VITALS: BP 134/90; PULSE 85; RESP 16; TEMP 36.4; O2SAT 99
[2022-11-17 14:03] VITALS: BP 176/86; PULSE 102; RESP 18; TEMP 36.6; O2SAT 96
[2022-11-17] MEDS: Nicotine Polacrilex Lozenge 4 MG LOZENGE BUCCAL ×3 (14:18→22:03)
[2022-11-17 18:00] VITALS: BP 136/91; PULSE 85; RESP 16; TEMP 36.3; O2SAT 99
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
[2022-11-17] MEDS: Prazosin HCL 1 MG CAPSULE 6 MG PO (21:58)
[2022-11-17] MEDS: Lurasidone HCl 20 MG TABLET 60 MG PO (21:58)
[2022-11-17] MEDS: QUEtiapine Fumarate 200 MG TABLET PO (21:58)
[2022-11-17] MEDS: Pregabalin 100 MG CAPSULE PO (21:58)
[2022-11-18] MEDS: hydrOXYzine HCL 25 MG TABLET PO ×2 (01:08→15:20)
[2022-11-18] MEDS: traZODone HCL 50 MG TABLET PO (01:08)
[2022-11-18 08:10] LABS: Alanine Aminotransferase 8 U/L (0-31); Albumin Level 3.9 g/dL (3.5-5.0); Alkaline Phosphatase 134 U/L (39-117); Anion Gap 13 (12-20); Aspartate Amino Transferase 11 U/L (5-31); Bilirubin Total 0.3 mg/dL (0.0-1.0); Blood Urea Nitrogen 15 mg/dL (9-16); Calcium 9.2 mg/dL (8.4-10.2); Carbon Dioxide 26 mmol/L (22-29); Chloride 105 mmol/L (96-108); Cholesterol 203 mg/dL (<200); Creatinine Clr Calc Pharmacy 79.1; Estimated Glomerular Filt Rate > 60; Glucose Fasting 90 mg/dL (60-99); HDL Cholesterol 47 mg/dL (>40); LDL Cholesterol Calculated 139 mg/dL (<100); Sodium 140 mmol/L (135-145); Total Protein 6.6 g/dL (6.5-8.0); Triglycerides 86 mg/dL (<150)
[2022-11-18 08:32] VITALS: BP 120/66; PULSE 102; RESP 16; TEMP 37.1; O2SAT 97
[2022-11-18] MEDS: Gabapentin 600 MG TABLET PO (08:54)
[2022-11-18] MEDS: clonazePAM 1 MG TABLET PO ×2 (08:54→21:47)
[2022-11-18] MEDS: lamoTRIgine 100 MG TABLET 300 MG PO (08:54)
[2022-11-18] MEDS: buPROPion HCl XL 150 MG TAB.ER.24H PO (08:54)
[2022-11-18] MEDS: Nicotine 21 MG PATCH.TD24 TRANSDERMA (08:55)
[2022-11-18] MEDS: Nicotine Polacrilex Lozenge 4 MG LOZENGE BUCCAL ×3 (08:58→15:20)
[2022-11-18] MEDS: Milk of Magnesia 30 ML ORAL.SUSP PO (11:38)
[2022-11-18] MEDS: LORazepam 0.5 MG TABLET PO (14:20)
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
[2022-11-18 16:18] VITALS: BP 128/80; PULSE 90; RESP 16; TEMP 36.6; O2SAT 99
--- NOTE | 2022-11-18 17:20 | PC.NURSE ---
Patient c/o constipation x 5 days. Telephone order received for Miralax powder po bid.
[2022-11-18] MEDS: polyethylene glycoL 3350 17 GM POWD.PACK PO (21:00)
[2022-11-18 22:55] VITALS: BP 134/77; PULSE 99
[2022-11-18] MEDS: Lurasidone HCl 20 MG TABLET 60 MG PO (23:08)
[2022-11-18] MEDS: Zolpidem Tartrate 5 MG TABLET PO (23:08)
[2022-11-18] MEDS: QUEtiapine Fumarate 200 MG TABLET PO (23:09)
[2022-11-18] MEDS: Prazosin HCL 1 MG CAPSULE 6 MG PO (23:09)
[2022-11-18] MEDS: Pregabalin 100 MG CAPSULE PO (23:09)
--- NOTE | 2022-11-19 00:11 | PC.NURSE ---
Patient had positive result from [employer].
[2022-11-19 08:30] VITALS: BP 124/64; PULSE 103; RESP 16; TEMP 36.1; O2SAT 98
[2022-11-19] MEDS: polyethylene glycoL 3350 17 GM POWD.PACK PO (08:37)
[2022-11-19] MEDS: Nicotine 21 MG PATCH.TD24 TRANSDERMA (08:38)
[2022-11-19] MEDS: lamoTRIgine 100 MG TABLET 300 MG PO (08:38)
[2022-11-19] MEDS: buPROPion HCl XL 150 MG TAB.ER.24H PO (08:39)
[2022-11-19] MEDS: clonazePAM 1 MG TABLET PO ×2 (08:39→21:55)
[2022-11-19] MEDS: Gabapentin 600 MG TABLET PO (08:39)
[2022-11-19 11:31] VITALS: BMI 38.8
[2022-11-19] MEDS: Nicotine Polacrilex Lozenge 4 MG LOZENGE BUCCAL ×3 (11:50→21:54)
[2022-11-19] MEDS: Milk of Magnesia 30 ML ORAL.SUSP PO (12:59)
--- NOTE | 2022-11-19 13:48 | P.PNPSI_ITS ---
Subjective Subjective Date of Service: 11/19/22 Reason For Visit: Depression, si Interim History: Pt reports some difficulty falling asleep, mood continues to be depressed with intermittent SI but not plan or intent to harm herself. We discussed d/c seroquel which is causing RLS some degree of akathisia during the day. We also discussed simplifying medication regimen. Review of Systems Review of Systems Constitutional : No Weight loss, No Fever, No Chills, No Night Sweats, No Fatigue, No Malaise ENT/Mouth : No Hearing loss, No Ear Pain, No Nasal Congestion, No Sinus Pain, No Hoarseness, No sore throat, No Rhinorrhea, No Swallowing Difficulty Eyes: No Eye Pain, No Swelling, No Redness, No Foreign Body, No Discharge, No Vision Changes Cardiovascular : No Chest Pain, No SOB, No Dyspnea on Exertion, No Orthopnea, No Edema, No Palpitations Respiratory : No Cough, No Sputum, No Wheezing, No Smoke Exposure, No Dyspnea Gastrointestinal : No Nausea, No Vomiting, No Diarrhea, No Constipation, No abdominal Pain, No Hematochezia, No Melena Genitourinary : no irregular bleeding, No Dysuria, No Urinary Frequency, No Hematuria, No Urinary Incontinence, No Urgency, No Flank Pain, No Urinary Flow Changes, No Hesitancy Musculoskeletal : No joint pain, No Myalgias, No Joint Swelling Skin : No Skin Lesions, No rash Neuro : No Weakness, No Numbness, No Paresthesias, No Loss of Consciousness, No Dizziness, No Headache Psych : No Anxiety/Panic, complaining of depression and suicidal ideation, no homicidal ideation Heme/Lymph: No Bruising, No Bleeding,No Lymphadenopathy Endocrine : No Polyuria, No Polydipsia, No Temperature Intolerance Mental Status Exam Mental Status Exam Narrative: Appearance:casually groomed, good hygiene, in NAD behavior:cooperative Psychomotor: no agitation or retardation noted Speech:clear, normal rate/rhythm/volume, spontaneous TP:linear TC:hopeless, depressed Mood: very depressed and anxious Affect:brightens up at times SI:passive HI:none VH/AH:none at this time but voices related to trauma Delusions:none Insight/judgment:fair x 2. memory/cog: alert, oriented x 3. grossly intact to conversational testing. Diagnostics Vital Signs (24Hr): Vital Signs - 24 hr 11/18/22 16:18 11/18/22 22:55 11/19/22 08:30 Temperature 97.8 F 97 F Pulse Rate 90 99 103 H Respiratory Rate 16 16 Blood Pressure 128/80 134/77 124/64 Pulse Oximetry 99 98 Oxygen Delivery Method Room Air Room Air BMI result Body Mass Index 38.8 Labs 11/16/22 13:57 11/18/22 07:23 Labs: Laboratory Results - last 48 hr 11/18/22 07:23 Sodium 140 Potassium 4.0 Chloride 105 Carbon Dioxide 26 Anion Gap 13 BUN 15 Creatinine 0.91 Estim Creat Clear Calc 79.1 Estimated GFR > 60 Fasting Glucose 90 Calcium 9.2 Total Bilirubin 0.3 AST 11 ALT 8 Alkaline Phosphatase 134 H Total Protein 6.6 Albumin 3.9 Triglycerides 86 Cholesterol 203 H LDL Cholesterol, Calc 139 H HDL Cholesterol 47 Medications Medications Current Medications Acetaminophen (Acetaminophen 325 Mg Tablet) 650 mg PO Q6H PRN PRN Reason: Headache/Pain Mild Scale (1-3) Al Hydroxide/Mg Hydroxide (Magnesium Hydrox/Alum Hydrox 30 Ml Oral.Susp) 30 ml PO Q6H PRN PRN Reason: Heartburn/Nausea Bupropion HCl (Bupropion Hcl Xl 150 Mg Tab.Er.24h) 150 mg PO DAILY [facility] Last Admin: 11/19/22 08:39 Dose: 150 mg Clonazepam (Clonazepam 1 Mg Tablet) 1 mg PO BID@0900,1999 [facility] Last Admin: 11/19/22 08:39 Dose: 1 mg Gabapentin (Gabapentin 600 Mg Tablet) 600 mg PO DAILY [facility] Last Admin: 11/19/22 08:39 Dose: 600 mg Hydroxyzine HCl (Hydroxyzine Hcl 25 Mg Tablet) 25 mg PO Q6H PRN PRN Reason: Anxiety Last Admin: 11/18/22 15:20 Dose: 25 mg Lamotrigine (Lamotrigine 100 Mg Tablet) 300 mg PO DAILY [facility] Last Admin: 11/19/22 08:38 Dose: 300 mg Lorazepam (Lorazepam 0.5 Mg Tablet) 0.5 mg PO DAILY PRN PRN Reason: anxiety Last Admin: 11/18/22 14:20 Dose: 0.5 mg Lurasidone HCl (Lurasidone Hcl 20 Mg Tablet) 60 mg PO DAILY@1700 [facility] Magnesium Hydroxide (Milk Of Magnesia 30 Ml Oral.Susp) 30 ml PO DAILY PRN PRN Reason: Constipation Last Admin: 11/19/22 12:59 Dose: 30 ml Nicotine (Nicotine 21 Mg Patch.Td24) 21 mg TRANSDERMA DAILY MEET Last Admin: 11/19/22 08:38 Dose: 21 mg Nicotine Polacrilex (Nicotine Polacrilex Lozenge 4 Mg Lozenge) 4 mg BUCCAL Q2H PRN PRN Reason: Nicotine Cravings Last Admin: 11/19/22 11:50 Dose: 4 mg Polyethylene Glycol (Polyethylene Glycol 3350 17 Gm Powd.Pack) 17 gm PO BID MEET Last Admin: 11/19/22 08:37 Dose: 17 gm Prazosin HCl (Prazosin Hcl 1 Mg Capsule) 6 mg PO BEDTIME MEET; Protocol Last Admin: 11/18/22 23:09 Dose: 6 mg Pregabalin (Pregabalin 100 Mg Capsule) 100 mg PO BEDTIME MEET Last Admin: 11/18/22 23:09 Dose: 100 mg Senna/Docusate Sodium (Sennosides/Docusate Sodium Tablet) 2 tab PO BID MEET Trazodone HCl (Trazodone Hcl 50 Mg Tablet) 50 mg PO BEDTIME MRX1 PRN PRN Reason: Insomnia Last Admin: 11/18/22 01:08 Dose: 50 mg Zolpidem Tartrate (Zolpidem Tartrate 5 Mg Tablet) 5 mg PO BEDTIME MEET Allergies Allergies Allergy/AdvReac Type Severity Reaction Status Date / Time Penicillins Allergy Swelling Verified 08/06/22 11:05 Assessment & Plan Assessment & Plan (1) PTSD (post-traumatic stress disorder): Status: Acute Code(s): F43.10 - Post-traumatic stress disorder, unspecified (2) Bipolar disorder: Qualifiers: Active/Remission status: currently active Current bipolar episode type: depressed Current episode severity: moderate Qualified Code(s): F31.32 - Bipolar disorder, current episode depressed, moderate Status: Acute Code(s): F31.9 - Bipolar disorder, unspecified Plan Mrs. Glover is a 47 year-old woman with hx of PTSD, Bipolar Disorder who self presented [place] [facility] reporting increase depression,SI with plan to cut her wrist. We discussed risks, benefits and alternative treatment options. Pt's current medication regimen concern for polypharmacy. Pt is on both ativan and clonazepam, in addition to ambien. She is also on both gabapentin and lyrica. She reports gabapentin works for fibromyalgia but lyrica helps restless leg. She has not had sleep study- despite ongoing sleep disturbances which although related to her depression seem also worsened by underlying medical conditions such as RLS. I discussed with pt that I would like her to be on only one benzo either clonazepam or ativan but not both. She reports she does not think wellbutrin is working as it should. She states that previous admissions, there had been discussion of lithium. She is also on latuda which she finds beneficial. We discussed that she does seem to benefit from antidepressant. PLAN 11/19- dc seroquel due to RLS. continue all other meds but if RLS will dc lyrica, she is on gabapentin for fibromyalgia. Reason for continued inpatient stay Substantial Risk for: inability to function Time Spent With Patient Time: Total time managing care of this patient today ____ minutes.
[2022-11-19] MEDS: Sennosides/Docusate Sodium TABLET 2 TAB PO ×2 (14:23→21:54)
[2022-11-19] MEDS: hydrOXYzine HCL 25 MG TABLET PO (16:37)
[2022-11-19] MEDS: LORazepam 0.5 MG TABLET PO (16:37)
[2022-11-19] MEDS: Lurasidone HCl 20 MG TABLET 60 MG PO (17:49)
[2022-11-19 21:45] VITALS: BP 130/68; PULSE 87; TEMP 36.1
[2022-11-19] MEDS: Prazosin HCL 1 MG CAPSULE 6 MG PO (21:52)
[2022-11-19] MEDS: Zolpidem Tartrate 5 MG TABLET PO (21:54)
[2022-11-19] MEDS: Pregabalin 100 MG CAPSULE PO (21:55)
[2022-11-20] MEDS: Sennosides/Docusate Sodium TABLET 2 TAB PO ×2 (08:55→21:41)
[2022-11-20] MEDS: Gabapentin 600 MG TABLET PO (08:55)
[2022-11-20] MEDS: lamoTRIgine 100 MG TABLET 300 MG PO (08:55)
[2022-11-20] MEDS: clonazePAM 1 MG TABLET PO ×2 (08:55→21:40)
[2022-11-20] MEDS: polyethylene glycoL 3350 17 GM POWD.PACK PO (08:56)
[2022-11-20] MEDS: buPROPion HCl XL 150 MG TAB.ER.24H PO (08:56)
[2022-11-20] MEDS: Nicotine 21 MG PATCH.TD24 TRANSDERMA (08:56)
[2022-11-20 09:27] VITALS: BP 114/68; PULSE 97; RESP 16; TEMP 36.1; O2SAT 97
[2022-11-20] MEDS: Acetaminophen 325 MG TABLET 650 MG PO (11:55)
[2022-11-20] MEDS: Nicotine Polacrilex Lozenge 4 MG LOZENGE BUCCAL ×4 (11:55→21:44)
[2022-11-20] MEDS: Lidocaine 4 % Patch ADH..PATCH 1 PATCH TRANSDERMA (14:25)
[2022-11-20] MEDS: hydrOXYzine HCL 25 MG TABLET PO ×2 (14:55→21:44)
[2022-11-20] MEDS: LORazepam 0.5 MG TABLET PO (14:55)
--- NOTE | 2022-11-20 15:30 | HO.PSYCHPN ---
Subjective Subjective Date of Service: 11/20/22 Reason For Visit: Depression, si Subjective Notes: Conditional Voluntary Interim History: Pt reports she slept through the night. She reports less RLS without seroquel. She reports she slept 9 hrs which is typically not her usual. She continues to endorse depressed mood. Intermittent SI, no plan or intent. Review of Systems Review of Systems Constitutional : No Weight loss, No Fever, No Chills, No Night Sweats, No Fatigue, No Malaise ENT/Mouth : No Hearing loss, No Ear Pain, No Nasal Congestion, No Sinus Pain, No Hoarseness, No sore throat, No Rhinorrhea, No Swallowing Difficulty Eyes: No Eye Pain, No Swelling, No Redness, No Foreign Body, No Discharge, No Vision Changes Cardiovascular : No Chest Pain, No SOB, No Dyspnea on Exertion, No Orthopnea, No Edema, No Palpitations Respiratory : No Cough, No Sputum, No Wheezing, No Smoke Exposure, No Dyspnea Gastrointestinal : No Nausea, No Vomiting, No Diarrhea, No Constipation, No abdominal Pain, No Hematochezia, No Melena Genitourinary : no irregular bleeding, No Dysuria, No Urinary Frequency, No Hematuria, No Urinary Incontinence, No Urgency, No Flank Pain, No Urinary Flow Changes, No Hesitancy Musculoskeletal : No joint pain, No Myalgias, No Joint Swelling Skin : No Skin Lesions, No rash Neuro : No Weakness, No Numbness, No Paresthesias, No Loss of Consciousness, No Dizziness, No Headache Psych : No Anxiety/Panic, complaining of depression and suicidal ideation, no homicidal ideation Heme/Lymph: No Bruising, No Bleeding,No Lymphadenopathy Endocrine : No Polyuria, No Polydipsia, No Temperature Intolerance Mental Status Exam Mental Status Exam Narrative: Appearance:casually groomed, good hygiene, in NAD behavior:cooperative Psychomotor: no agitation or retardation noted Speech:clear, normal rate/rhythm/volume, spontaneous TP:linear TC:hopeless, depressed Mood: very depressed and anxious Affect:brightens up at times SI:passive HI:none VH/AH:none at this time but voices related to trauma Delusions:none Insight/judgment:fair x 2. memory/cog: alert, oriented x 3. grossly intact to conversational testing. Diagnostics Vital Signs (24Hr): Vital Signs - 24 hr 11/19/22 21:45 11/20/22 09:27 Temperature 96.9 F 97 F Pulse Rate 87 97 Respiratory Rate 16 Blood Pressure 130/68 114/68 Pulse Oximetry 97 Oxygen Delivery Method Room Air BMI result Body Mass Index 38.8 Labs 11/16/22 13:57 11/18/22 07:23 Medications Medications Current Medications Acetaminophen (Acetaminophen 325 Mg Tablet) 650 mg PO Q6H PRN PRN Reason: Headache/Pain Mild Scale (1-3) Last Admin: 11/20/22 11:55 Dose: 650 mg Al Hydroxide/Mg Hydroxide (Magnesium Hydrox/Alum Hydrox 30 Ml Oral.Susp) 30 ml PO Q6H PRN PRN Reason: Heartburn/Nausea Bupropion HCl (Bupropion Hcl Xl 150 Mg Tab.Er.24h) 150 mg PO DAILY [facility] Last Admin: 11/20/22 08:56 Dose: 150 mg Clonazepam (Clonazepam 1 Mg Tablet) 1 mg PO BID@0900,2000 [facility] Last Admin: 11/20/22 08:55 Dose: 1 mg Gabapentin (Gabapentin 600 Mg Tablet) 600 mg PO DAILY [facility] Last Admin: 11/20/22 08:55 Dose: 600 mg Hydroxyzine HCl (Hydroxyzine Hcl 25 Mg Tablet) 25 mg PO Q6H PRN PRN Reason: Anxiety Last Admin: 11/20/22 14:55 Dose: 25 mg Lamotrigine (Lamotrigine 100 Mg Tablet) 300 mg PO DAILY [facility] Last Admin: 11/20/22 08:55 Dose: 300 mg Lidocaine (Lidocaine 4 % Patch Adh..Patch) 1 patch TRANSDERMA DAILY [facility]; Protocol Last Admin: 11/20/22 14:25 Dose: 1 patch Lorazepam (Lorazepam 0.5 Mg Tablet) 0.5 mg PO DAILY PRN PRN Reason: anxiety Last Admin: 11/20/22 14:55 Dose: 0.5 mg Lurasidone HCl (Lurasidone Hcl 80 Mg Tablet) 80 mg PO DAILY@1700 [facility] Magnesium Hydroxide (Milk Of Magnesia 30 Ml Oral.Susp) 30 ml PO DAILY PRN PRN Reason: Constipation Last Admin: 11/19/22 12:59 Dose: 30 ml Nicotine (Nicotine 21 Mg Patch.Td24) 21 mg TRANSDERMA DAILY [facility] Last Admin: 11/20/22 08:56 Dose: 21 mg Nicotine Polacrilex (Nicotine Polacrilex Lozenge 4 Mg Lozenge) 4 mg BUCCAL Q2H PRN PRN Reason: Nicotine Cravings Last Admin: 11/20/22 14:56 Dose: 4 mg Polyethylene Glycol (Polyethylene Glycol 3350 17 Gm Powd.Pack) 17 gm PO BID MEET Last Admin: 11/20/22 08:56 Dose: 17 gm Prazosin HCl (Prazosin Hcl 1 Mg Capsule) 6 mg PO BEDTIME MEET; Protocol Last Admin: 11/19/22 21:52 Dose: 6 mg Senna/Docusate Sodium (Sennosides/Docusate Sodium Tablet) 2 tab PO BID MEET Last Admin: 11/20/22 08:55 Dose: 2 tab Trazodone HCl (Trazodone Hcl 50 Mg Tablet) 50 mg PO BEDTIME MRX1 PRN PRN Reason: Insomnia Last Admin: 11/18/22 01:08 Dose: 50 mg Zolpidem Tartrate (Zolpidem Tartrate 5 Mg Tablet) 5 mg PO BEDTIME MEET Last Admin: 11/19/22 21:54 Dose: 5 mg Allergies Allergies Allergy/AdvReac Type Severity Reaction Status Date / Time Penicillins Allergy Swelling Verified 08/06/22 11:05 Assessment & Plan Assessment & Plan (1) PTSD (post-traumatic stress disorder): Status: Acute Code(s): F43.10 - Post-traumatic stress disorder, unspecified (2) Bipolar disorder: Qualifiers: Active/Remission status: currently active Current bipolar episode type: depressed Current episode severity: moderate Qualified Code(s): F31.32 - Bipolar disorder, current episode depressed, moderate Status: Acute Code(s): F31.9 - Bipolar disorder, unspecified Plan Mrs. Glover is a 47 year-old woman with hx of PTSD, Bipolar Disorder who self presented to [facility] ED reporting increase depression,SI with plan to cut her wrist. We discussed risks, benefits and alternative treatment options. Pt's current medication regimen concern for polypharmacy. Pt is on both ativan and clonazepam, in addition to ambien. She is also on both gabapentin and lyrica. She reports gabapentin works for fibromyalgia but lyrica helps restless leg. She has not had sleep study- despite ongoing sleep disturbances which although related to her depression seem also worsened by underlying medical conditions such as RLS. I discussed with pt that I would like her to be on only one benzo either clonazepam or ativan but not both. She reports she does not think wellbutrin is working as it should. She states that previous admissions, there had been discussion of lithium. She is also on latuda which she finds beneficial. We discussed that she does seem to benefit from antidepressant. PLAN 11/19- dc seroquel due to RLS. continue all other meds but if RLS will dc lyrica, she is on gabapentin for fibromyalgia. 11/20 increase latuda to 80mg po dinner time. d/c lyrica. continue all other meds. continue working on polypharmacy. Reason for continued inpatient stay Substantial Risk for: harm to self Time Spent With Patient Time: Total time managing care of this patient today ____ minutes.
[2022-11-20 18:00] VITALS: BP 126/70; PULSE 98; RESP 18; TEMP 36.1; O2SAT 100
[2022-11-20] MEDS: Lurasidone HCl 80 MG TABLET PO (18:01)
[2022-11-20] MEDS: Prazosin HCL 1 MG CAPSULE 6 MG PO (21:40)
[2022-11-20] MEDS: traZODone HCL 50 MG TABLET PO (21:41)
[2022-11-20] MEDS: Zolpidem Tartrate 5 MG TABLET PO (21:41)
[2022-11-21] MEDS: traZODone HCL 50 MG TABLET PO (01:07)
[2022-11-21] MEDS: LORazepam 0.5 MG TABLET PO (01:07)
[2022-11-21 06:00] VITALS: BP 114/57; PULSE 88; RESP 16; TEMP 36.4; O2SAT 97
[2022-11-21] MEDS: buPROPion HCl XL 150 MG TAB.ER.24H PO (08:45)
[2022-11-21] MEDS: clonazePAM 1 MG TABLET PO ×2 (08:45→19:49)
[2022-11-21] MEDS: Gabapentin 600 MG TABLET PO (08:45)
[2022-11-21] MEDS: Sennosides/Docusate Sodium TABLET 2 TAB PO ×2 (08:45→19:49)
[2022-11-21] MEDS: lamoTRIgine 100 MG TABLET 300 MG PO (08:45)
[2022-11-21] MEDS: polyethylene glycoL 3350 17 GM POWD.PACK PO ×2 (11:11→19:48)
[2022-11-21] MEDS: Nicotine 21 MG PATCH.TD24 TRANSDERMA (11:12)
[2022-11-21] MEDS: Nicotine Polacrilex Lozenge 4 MG LOZENGE BUCCAL ×2 (11:12→16:32)
--- NOTE | 2022-11-21 11:20 | HO.PSYCHPN ---
Subjective Subjective Date of Service: 11/21/22 Reason For Visit: Depression, si Interim History: Pt reports continued difficulty falling asleep and waking up with nightmares. Her mood continues to be depressed with intermittent SI but not plan or intent to harm herself. She is happy she is off Seroquel. She was agreeable to starting Topamax given her insomnia, headaches, depression and nightmares. Review of Systems Review of Systems Constitutional : No Weight loss, No Fever, No Chills, No Night Sweats, No Fatigue, No Malaise ENT/Mouth : No Hearing loss, No Ear Pain, No Nasal Congestion, No Sinus Pain, No Hoarseness, No sore throat, No Rhinorrhea, No Swallowing Difficulty Eyes: No Eye Pain, No Swelling, No Redness, No Foreign Body, No Discharge, No Vision Changes Cardiovascular : No Chest Pain, No SOB, No Dyspnea on Exertion, No Orthopnea, No Edema, No Palpitations Respiratory : No Cough, No Sputum, No Wheezing, No Smoke Exposure, No Dyspnea Gastrointestinal : No Nausea, No Vomiting, No Diarrhea, No Constipation, No abdominal Pain, No Hematochezia, No Melena Genitourinary : no irregular bleeding, No Dysuria, No Urinary Frequency, No Hematuria, No Urinary Incontinence, No Urgency, No Flank Pain, No Urinary Flow Changes, No Hesitancy Musculoskeletal : No joint pain, No Myalgias, No Joint Swelling Skin : No Skin Lesions, No rash Neuro : No Weakness, No Numbness, No Paresthesias, No Loss of Consciousness, No Dizziness, No Headache Psych : No Anxiety/Panic, complaining of depression and suicidal ideation, no homicidal ideation Heme/Lymph: No Bruising, No Bleeding,No Lymphadenopathy Endocrine : No Polyuria, No Polydipsia, No Temperature Intolerance Mental Status Exam Mental Status Exam Narrative: Appearance:casually groomed, good hygiene, in NAD behavior:cooperative Psychomotor: no agitation or retardation noted Speech:clear, normal rate/rhythm/volume, spontaneous TP:linear TC:hopeless, depressed Mood: very depressed and anxious Affect:brightens up at times SI:passive HI:none VH/AH:none at this time but voices related to trauma Delusions:none Insight/judgment:fair x 2. memory/cog: alert, oriented x 3. grossly intact to conversational testing. Diagnostics Vital Signs (24Hr): Vital Signs - 24 hr 11/20/22 18:00 11/21/22 06:00 Temperature 97.0 F 97.5 F Pulse Rate 98 88 Respiratory Rate 18 16 Blood Pressure 126/70 114/57 L Pulse Oximetry 100 97 Oxygen Delivery Method Room Air Room Air BMI result Body Mass Index 38.8 Labs 11/16/22 13:57 11/18/22 07:23 Medications Medications Current Medications Acetaminophen (Acetaminophen 325 Mg Tablet) 650 mg PO Q6H PRN PRN Reason: Headache/Pain Mild Scale (1-3) Last Admin: 11/20/22 11:55 Dose: 650 mg Al Hydroxide/Mg Hydroxide (Magnesium Hydrox/Alum Hydrox 30 Ml Oral.Susp) 30 ml PO Q6H PRN PRN Reason: Heartburn/Nausea Bupropion HCl (Bupropion Hcl Xl 150 Mg Tab.Er.24h) 150 mg PO DAILY [facility] Last Admin: 11/21/22 08:45 Dose: 150 mg Clonazepam (Clonazepam 1 Mg Tablet) 1 mg PO BID@0900,1999 [facility] Last Admin: 11/21/22 08:45 Dose: 1 mg Gabapentin (Gabapentin 600 Mg Tablet) 600 mg PO DAILY [facility] Last Admin: 11/21/22 08:45 Dose: 600 mg Hydroxyzine HCl (Hydroxyzine Hcl 25 Mg Tablet) 25 mg PO Q6H PRN PRN Reason: Anxiety Last Admin: 11/20/22 21:44 Dose: 25 mg Lamotrigine (Lamotrigine 100 Mg Tablet) 300 mg PO DAILY [facility] Last Admin: 11/21/22 08:45 Dose: 300 mg Lidocaine (Lidocaine 4 % Patch Adh..Patch) 1 patch TRANSDERMA DAILY [facility]; Protocol Last Admin: 11/21/22 08:49 Dose: Not Given Lorazepam (Lorazepam 0.5 Mg Tablet) 0.5 mg PO DAILY PRN PRN Reason: anxiety Last Admin: 11/21/22 01:07 Dose: 0.5 mg Lurasidone HCl (Lurasidone Hcl 80 Mg Tablet) 80 mg PO DAILY@1700 [facility] Last Admin: 11/20/22 18:01 Dose: 80 mg Magnesium Hydroxide (Milk Of Magnesia 30 Ml Oral.Susp) 30 ml PO DAILY PRN PRN Reason: Constipation Last Admin: 11/19/22 12:59 Dose: 30 ml Nicotine (Nicotine 21 Mg Patch.Td24) 21 mg TRANSDERMA DAILY [facility] Last Admin: 11/21/22 11:12 Dose: 21 mg Nicotine Polacrilex (Nicotine Polacrilex Lozenge 4 Mg Lozenge) 4 mg BUCCAL Q2H PRN PRN Reason: Nicotine Cravings Last Admin: 11/21/22 11:12 Dose: 4 mg Polyethylene Glycol (Polyethylene Glycol 3350 17 Gm Powd.Pack) 17 gm PO BID MEET Last Admin: 11/21/22 11:11 Dose: 17 gm Prazosin HCl (Prazosin Hcl 1 Mg Capsule) 6 mg PO BEDTIME [facility]; Protocol Last Admin: 11/20/22 21:40 Dose: 6 mg Senna/Docusate Sodium (Sennosides/Docusate Sodium Tablet) 2 tab PO BID [facility] Last Admin: 11/21/22 08:45 Dose: 2 tab Trazodone HCl (Trazodone Hcl 50 Mg Tablet) 50 mg PO BEDTIME MRX1 PRN PRN Reason: Insomnia Last Admin: 11/21/22 01:07 Dose: 50 mg Zolpidem Tartrate (Zolpidem Tartrate 5 Mg Tablet) 5 mg PO BEDTIME [facility] Last Admin: 11/20/22 21:41 Dose: 5 mg Allergies Allergies Allergy/AdvReac Type Severity Reaction Status Date / Time Penicillins Allergy Swelling Verified 08/06/22 11:05 Assessment & Plan Assessment & Plan (1) PTSD (post-traumatic stress disorder): Status: Acute Code(s): F43.10 - Post-traumatic stress disorder, unspecified (2) Bipolar disorder: Qualifiers: Active/Remission status: currently active Current bipolar episode type: depressed Current episode severity: moderate Qualified Code(s): F31.32 - Bipolar disorder, current episode depressed, moderate Status: Acute Code(s): F31.9 - Bipolar disorder, unspecified Plan Mrs. Glover is a 47 year-old woman with hx of PTSD, Bipolar Disorder who self presented to [facility] reporting increase depression,SI with plan to cut her wrist. We discussed risks, benefits and alternative treatment options. Pt's current medication regimen concern for polypharmacy. Pt is on both ativan and clonazepam, in addition to ambien. She is also on both gabapentin and lyrica. She reports gabapentin works for fibromyalgia but lyrica helps restless leg. She has not had sleep study- despite ongoing sleep disturbances which although related to her depression seem also worsened by underlying medical conditions such as RLS. I discussed with pt that I would like her to be on only one benzo either clonazepam or ativan but not both. She reports she does not think wellbutrin is working as it should. She states that previous admissions, there had been discussion of lithium. She is also on latuda which she finds beneficial. We discussed that she does seem to benefit from antidepressant. PLAN 11/19- dc seroquel due to RLS. continue all other meds but if RLS will dc lyrica, she is on gabapentin for fibromyalgia. 11/21: Start Topamax 25 mg HS. Continue other medications the same. Reason for continued inpatient stay Substantial Risk for: harm to self, inability to function and rapid decompensation Time Spent With Patient Time: Total time managing care of this patient today ____ minutes.
[2022-11-21 16:20] VITALS: BP 117/54; PULSE 87; RESP 16; TEMP 36.3; O2SAT 98
[2022-11-21] MEDS: Lidocaine 4 % Patch ADH..PATCH 1 PATCH TRANSDERMA (16:31)
--- NOTE | 2022-11-21 16:36 | PC.NURSE ---
Pt is alert and oriented, requested for lidocaine patch for 7/10 lower back pain. lidocaine patch given as unscheduled.
[2022-11-21] MEDS: Lurasidone HCl 80 MG TABLET PO (17:05)
[2022-11-21] MEDS: hydrOXYzine HCL 25 MG TABLET PO (18:37)
[2022-11-21 19:23] LABS: Lamotrigine Lamictal 5.3 mcg/mL (2.5-15.0)
[2022-11-21] MEDS: Topiramate 25 MG TABLET PO (19:48)
[2022-11-21] MEDS: Prazosin HCL 1 MG CAPSULE 6 MG PO (19:49)
[2022-11-21] MEDS: Zolpidem Tartrate 5 MG TABLET PO (19:49)
[2022-11-22] MEDS: LORazepam 0.5 MG TABLET PO (01:45)
[2022-11-22 07:45] VITALS: BP 120/87; PULSE 91; RESP 18; TEMP 36.2; O2SAT 97
[2022-11-22] MEDS: Gabapentin 600 MG TABLET PO (08:22)
[2022-11-22] MEDS: lamoTRIgine 100 MG TABLET 300 MG PO (08:22)
[2022-11-22] MEDS: buPROPion HCl XL 150 MG TAB.ER.24H PO (08:23)
[2022-11-22] MEDS: Sennosides/Docusate Sodium TABLET 2 TAB PO ×2 (08:23→20:58)
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
--- NOTE | 2022-11-22 13:16 | P.PNPSI_ITS ---
Subjective Subjective Date of Service: 11/22/22 Reason For Visit: Depression, si Interim History: Patient reports she didn?t sleep and feels tired. She feels depressed and anxious. Topamax didn?t help with sleep. She denies SI. Review of Systems Review of Systems Constitutional : No Weight loss, No Fever, No Chills, No Night Sweats, No Fatigue, No Malaise ENT/Mouth : No Hearing loss, No Ear Pain, No Nasal Congestion, No Sinus Pain, No Hoarseness, No sore throat, No Rhinorrhea, No Swallowing Difficulty Eyes: No Eye Pain, No Swelling, No Redness, No Foreign Body, No Discharge, No Vision Changes Cardiovascular : No Chest Pain, No SOB, No Dyspnea on Exertion, No Orthopnea, No Edema, No Palpitations Respiratory : No Cough, No Sputum, No Wheezing, No Smoke Exposure, No Dyspnea Gastrointestinal : No Nausea, No Vomiting, No Diarrhea, No Constipation, No abdominal Pain, No Hematochezia, No Melena Genitourinary : no irregular bleeding, No Dysuria, No Urinary Frequency, No Hematuria, No Urinary Incontinence, No Urgency, No Flank Pain, No Urinary Flow Changes, No Hesitancy Musculoskeletal : No joint pain, No Myalgias, No Joint Swelling Skin : No Skin Lesions, No rash Neuro : No Weakness, No Numbness, No Paresthesias, No Loss of Consciousness, No Dizziness, No Headache Psych : No Anxiety/Panic, complaining of depression and suicidal ideation, no homicidal ideation Heme/Lymph: No Bruising, No Bleeding,No Lymphadenopathy Endocrine : No Polyuria, No Polydipsia, No Temperature Intolerance Mental Status Exam Mental Status Exam Narrative: Appearance:casually groomed, good hygiene, in NAD behavior:cooperative Psychomotor: no agitation or retardation noted Speech:clear, normal rate/rhythm/volume, spontaneous TP:linear TC:hopeless, depressed Mood: very depressed and anxious Affect:brightens up at times SI:passive HI:none VH/AH:none at this time but voices related to trauma Delusions:none Insight/judgment:fair x 2. memory/cog: alert, oriented x 3. grossly intact to conversational testing. Diagnostics Vital Signs (24Hr): Vital Signs - 24 hr 11/21/22 16:20 11/22/22 07:45 Temperature 97.4 F 97.1 F Pulse Rate 87 91 Respiratory Rate 16 18 Blood Pressure 117/54 L 120/87 Pulse Oximetry 98 97 Oxygen Delivery Method Room Air Room Air BMI result Body Mass Index 38.8 Labs 11/16/22 13:57 11/18/22 07:23 Labs: Laboratory Results - last 48 hr 11/18/22 07:23 Lamotrigine 5.3 Medications Medications Current Medications Acetaminophen (Acetaminophen 325 Mg Tablet) 650 mg PO Q6H PRN PRN Reason: Headache/Pain Mild Scale (1-3) Last Admin: 11/20/22 11:55 Dose: 650 mg Al Hydroxide/Mg Hydroxide (Magnesium Hydrox/Alum Hydrox 30 Ml Oral.Susp) 30 ml PO Q6H PRN PRN Reason: Heartburn/Nausea Bupropion HCl (Bupropion Hcl Xl 150 Mg Tab.Er.24h) 150 mg PO DAILY [facility] Last Admin: 11/22/22 08:23 Dose: 150 mg Gabapentin (Gabapentin 600 Mg Tablet) 600 mg PO DAILY [facility] Last Admin: 11/22/22 08:22 Dose: 600 mg Hydroxyzine HCl (Hydroxyzine Hcl 25 Mg Tablet) 25 mg PO Q6H PRN PRN Reason: Anxiety Last Admin: 11/21/22 18:37 Dose: 25 mg Lamotrigine (Lamotrigine 100 Mg Tablet) 300 mg PO DAILY [facility] Last Admin: 11/22/22 08:22 Dose: 300 mg Lidocaine (Lidocaine 4 % Patch Adh..Patch) 1 patch TRANSDERMA DAILY [facility]; Protocol Last Admin: 11/22/22 08:25 Dose: Not Given Lorazepam (Lorazepam 0.5 Mg Tablet) 0.5 mg PO DAILY PRN PRN Reason: Anxiety Last Admin: 11/22/22 01:45 Dose: 0.5 mg Lurasidone HCl (Lurasidone Hcl 80 Mg Tablet) 80 mg PO DAILY@1700 [facility] Last Admin: 11/21/22 17:05 Dose: 80 mg Magnesium Hydroxide (Milk Of Magnesia 30 Ml Oral.Susp) 30 ml PO DAILY PRN PRN Reason: Constipation Last Admin: 11/19/22 12:59 Dose: 30 ml Nicotine (Nicotine 21 Mg Patch.Td24) 21 mg TRANSDERMA DAILY [facility] Last Admin: 11/22/22 08:25 Dose: Not Given Nicotine Polacrilex (Nicotine Polacrilex Lozenge 4 Mg Lozenge) 4 mg BUCCAL Q2H PRN PRN Reason: Nicotine Cravings Last Admin: 11/21/22 16:32 Dose: 4 mg Polyethylene Glycol (Polyethylene Glycol 3350 17 Gm Powd.Pack) 17 gm PO BID [facility] Last Admin: 11/22/22 08:25 Dose: Not Given Prazosin HCl (Prazosin Hcl 1 Mg Capsule) 6 mg PO BEDTIME [facility]; Protocol Last Admin: 11/21/22 19:49 Dose: 6 mg Senna/Docusate Sodium (Sennosides/Docusate Sodium Tablet) 2 tab PO BID [facility] Last Admin: 11/22/22 08:23 Dose: 2 tab Topiramate (Topiramate 25 Mg Tablet) 25 mg PO BEDTIME [facility] Last Admin: 11/21/22 19:48 Dose: 25 mg Trazodone HCl (Trazodone Hcl 50 Mg Tablet) 50 mg PO BEDTIME MRX1 PRN PRN Reason: Insomnia Last Admin: 11/21/22 01:07 Dose: 50 mg Zolpidem Tartrate (Zolpidem Tartrate 5 Mg Tablet) 5 mg PO BEDTIME [facility] Last Admin: 11/21/22 19:49 Dose: 5 mg Allergies Allergies Allergy/AdvReac Type Severity Reaction Status Date / Time Penicillins Allergy Swelling Verified 08/06/22 11:05 Assessment & Plan Assessment & Plan (1) PTSD (post-traumatic stress disorder): Status: Acute Code(s): F43.10 - Post-traumatic stress disorder, unspecified (2) Bipolar disorder: Qualifiers: Active/Remission status: currently active Current bipolar episode type: depressed Current episode severity: moderate Qualified Code(s): F31.32 - Bipolar disorder, current episode depressed, moderate Status: Acute Code(s): F31.9 - Bipolar disorder, unspecified Plan Mrs. Glover is a 47 year-old woman with hx of PTSD, Bipolar Disorder who self presented to [facility] reporting increase depression,SI with plan to cut her wrist. We discussed risks, benefits and alternative treatment options. Pt's current medication regimen concern for polypharmacy. Pt is on both ativan and clonazepam, in addition to ambien. She is also on both gabapentin and lyrica. She reports gabapentin works for fibromyalgia but lyrica helps restless leg. She has not had sleep study- despite ongoing sleep disturbances which although related to her depression seem also worsened by underlying medical conditions such as RLS. I discussed with pt that I would like her to be on only one benzo either clonazepam or ativan but not both. She reports she does not think wellbutrin is working as it should. She states that previous admissions, there had been discussion of lithium. She is also on latuda which she finds beneficial. We discussed that she does seem to benefit from antidepressant. PLAN 11/19- dc seroquel due to RLS. continue all other meds but if RLS will dc lyrica, she is on gabapentin for fibromyalgia. 11/21: Start Topamax 25 mg HS. Continue other medications the same. 11/22: DC Topamax. Continue treatment plan. Reason for continued inpatient stay Substantial Risk for: harm to self, inability to function and rapid decompensation Time Spent With Patient Time: Total time managing care of this patient today ____ minutes.
[2022-11-22] MEDS: Nicotine 21 MG PATCH.TD24 TRANSDERMA (13:34)
[2022-11-22] MEDS: Nicotine Polacrilex Lozenge 4 MG LOZENGE BUCCAL (13:34)
[2022-11-22] MEDS: Lurasidone HCl 80 MG TABLET PO (17:56)
[2022-11-22 18:00] VITALS: BP 140/82; PULSE 82; RESP 16; TEMP 36.4; O2SAT 97
[2022-11-22] MEDS: Lidocaine 4 % Patch ADH..PATCH 1 PATCH TRANSDERMA (18:52)
[2022-11-22] MEDS: hydrOXYzine HCL 25 MG TABLET PO (18:54)
[2022-11-22] MEDS: Prazosin HCL 1 MG CAPSULE 6 MG PO (20:59)
[2022-11-22] MEDS: Zolpidem Tartrate 5 MG TABLET PO (20:59)
[2022-11-22] MEDS: traZODone HCL 50 MG TABLET PO (21:55)
[2022-11-23] MEDS: hydrOXYzine HCL 25 MG TABLET PO (00:36)
[2022-11-23] MEDS: LORazepam 0.5 MG TABLET PO ×2 (00:37→16:39)
[2022-11-23 06:00] VITALS: BP 144/82; PULSE 101; RESP 18; TEMP 36.2; O2SAT 97
[2022-11-23] MEDS: Sennosides/Docusate Sodium TABLET 2 TAB PO ×2 (08:21→20:55)
[2022-11-23] MEDS: Gabapentin 600 MG TABLET PO (08:21)
[2022-11-23] MEDS: buPROPion HCl XL 150 MG TAB.ER.24H PO (08:21)
[2022-11-23] MEDS: lamoTRIgine 100 MG TABLET 300 MG PO (08:21)
--- NOTE | 2022-11-23 09:11 | HO.PSYCHPN ---
Subjective Subjective Date of Service: 11/23/22 Reason For Visit: Depression, si Subjective Notes: Conditional Voluntary Interim History: Pt expressed frustration as she states she has not been able to sleep for the past 2 nights. She reports feeling worse and wanting to go. When reviewing chart- her clonazepam 1mg po BID felt off on 11/21 day and she did not receive night time dose or BID dose on Wednesday. Clonazepam renewed. We discussed increasing gabapetin to adding dose at bedtime. Suspect increase anxious mood and lack of sleep related to not having clonazepam in past day and a half. Medication Compliance: Yes Review of Systems Review of Systems Constitutional : No Weight loss, No Fever, No Chills, No Night Sweats, No Fatigue, No Malaise ENT/Mouth : No Hearing loss, No Ear Pain, No Nasal Congestion, No Sinus Pain, No Hoarseness, No sore throat, No Rhinorrhea, No Swallowing Difficulty Eyes: No Eye Pain, No Swelling, No Redness, No Foreign Body, No Discharge, No Vision Changes Cardiovascular : No Chest Pain, No SOB, No Dyspnea on Exertion, No Orthopnea, No Edema, No Palpitations Respiratory : No Cough, No Sputum, No Wheezing, No Smoke Exposure, No Dyspnea Gastrointestinal : No Nausea, No Vomiting, No Diarrhea, No Constipation, No abdominal Pain, No Hematochezia, No Melena Genitourinary : no irregular bleeding, No Dysuria, No Urinary Frequency, No Hematuria, No Urinary Incontinence, No Urgency, No Flank Pain, No Urinary Flow Changes, No Hesitancy Musculoskeletal : No joint pain, No Myalgias, No Joint Swelling Skin : No Skin Lesions, No rash Neuro : No Weakness, No Numbness, No Paresthesias, No Loss of Consciousness, No Dizziness, No Headache Psych : No Anxiety/Panic, complaining of depression and suicidal ideation, no homicidal ideation Heme/Lymph: No Bruising, No Bleeding,No Lymphadenopathy Endocrine : No Polyuria, No Polydipsia, No Temperature Intolerance Mental Status Exam Mental Status Exam Narrative: Appearance:casually groomed, good hygiene, in NAD behavior:cooperative Psychomotor: no agitation or retardation noted Speech:clear, normal rate/rhythm/volume, spontaneous TP:linear TC:hopeless, depressed Mood: very depressed and anxious Affect: dysphoric SI:passive HI:none VH/AH:none at this time but voices related to trauma Delusions:none Insight/judgment:fair x 2. memory/cog: alert, oriented x 3. grossly intact to conversational testing. Diagnostics Vital Signs (24Hr): Vital Signs - 24 hr 11/22/22 18:00 11/23/22 06:00 Temperature 97.6 F 97.1 F Pulse Rate 82 101 H Respiratory Rate 16 18 Blood Pressure 140/82 H 144/82 H Pulse Oximetry 97 97 Oxygen Delivery Method Room Air Room Air BMI result Body Mass Index 38.8 Labs 11/16/22 13:57 11/18/22 07:23 Labs: Laboratory Results - last 48 hr 11/18/22 07:23 Lamotrigine 5.3 Medications Medications Current Medications Acetaminophen (Acetaminophen 325 Mg Tablet) 650 mg PO Q6H PRN PRN Reason: Headache/Pain Mild Scale (1-3) Last Admin: 11/20/22 11:55 Dose: 650 mg Al Hydroxide/Mg Hydroxide (Magnesium Hydrox/Alum Hydrox 30 Ml Oral.Susp) 30 ml PO Q6H PRN PRN Reason: Heartburn/Nausea Bupropion HCl (Bupropion Hcl Xl 150 Mg Tab.Er.24h) 150 mg PO DAILY [facility] Last Admin: 11/23/22 08:21 Dose: 150 mg Gabapentin (Gabapentin 600 Mg Tablet) 600 mg PO DAILY [facility] Last Admin: 11/23/22 08:21 Dose: 600 mg Hydroxyzine HCl (Hydroxyzine Hcl 25 Mg Tablet) 25 mg PO Q6H PRN PRN Reason: Anxiety Last Admin: 11/23/22 00:36 Dose: 25 mg Lamotrigine (Lamotrigine 100 Mg Tablet) 300 mg PO DAILY [facility] Last Admin: 11/23/22 08:21 Dose: 300 mg Lidocaine (Lidocaine 4 % Patch Adh..Patch) 1 patch TRANSDERMA DAILY [facility]; Protocol Last Admin: 11/23/22 08:24 Dose: Not Given Lorazepam (Lorazepam 0.5 Mg Tablet) 0.5 mg PO DAILY PRN PRN Reason: Anxiety Last Admin: 11/23/22 00:37 Dose: 0.5 mg Lurasidone HCl (Lurasidone Hcl 80 Mg Tablet) 80 mg PO DAILY@1700 [facility] Last Admin: 11/22/22 17:56 Dose: 80 mg Magnesium Hydroxide (Milk Of Magnesia 30 Ml Oral.Susp) 30 ml PO DAILY PRN PRN Reason: Constipation Last Admin: 11/19/22 12:59 Dose: 30 ml Nicotine (Nicotine 21 Mg Patch.Td24) 21 mg TRANSDERMA DAILY [facility] Last Admin: 11/23/22 08:24 Dose: Not Given Nicotine Polacrilex (Nicotine Polacrilex Lozenge 4 Mg Lozenge) 4 mg BUCCAL Q2H PRN PRN Reason: Nicotine Cravings Last Admin: 11/22/22 13:34 Dose: 4 mg Polyethylene Glycol (Polyethylene Glycol 3350 17 Gm Powd.Pack) 17 gm PO BID [facility] Last Admin: 11/23/22 08:24 Dose: Not Given Prazosin HCl (Prazosin Hcl 1 Mg Capsule) 6 mg PO BEDTIME [facility]; Protocol Last Admin: 11/22/22 20:59 Dose: 6 mg Senna/Docusate Sodium (Sennosides/Docusate Sodium Tablet) 2 tab PO BID [facility] Last Admin: 11/23/22 08:21 Dose: 2 tab Trazodone HCl (Trazodone Hcl 50 Mg Tablet) 50 mg PO BEDTIME MRX1 PRN PRN Reason: Insomnia Last Admin: 11/22/22 21:55 Dose: 50 mg Zolpidem Tartrate (Zolpidem Tartrate 5 Mg Tablet) 5 mg PO BEDTIME [facility] Last Admin: 11/22/22 20:59 Dose: 5 mg Allergies Allergies Allergy/AdvReac Type Severity Reaction Status Date / Time Penicillins Allergy Swelling Verified 08/06/22 11:05 Assessment & Plan Assessment & Plan (1) PTSD (post-traumatic stress disorder): Status: Acute Code(s): F43.10 - Post-traumatic stress disorder, unspecified (2) Bipolar disorder: Qualifiers: Active/Remission status: currently active Current bipolar episode type: depressed Current episode severity: moderate Qualified Code(s): F31.32 - Bipolar disorder, current episode depressed, moderate Status: Acute Code(s): F31.9 - Bipolar disorder, unspecified Plan Mrs. Glover is a 47 year-old woman with hx of PTSD, Bipolar Disorder who self presented to [facility] [place] [facility] reporting increase depression,SI with plan to cut her wrist. We discussed risks, benefits and alternative treatment options. Pt's current medication regimen concern for polypharmacy. Pt is on both ativan and clonazepam, in addition to ambien. She is also on both gabapentin and lyrica. She reports gabapentin works for fibromyalgia but lyrica helps restless leg. She has not had sleep study- despite ongoing sleep disturbances which although related to her depression seem also worsened by underlying medical conditions such as RLS. I discussed with pt that I would like her to be on only one benzo either clonazepam or ativan but not both. She reports she does not think wellbutrin is working as it should. She states that previous admissions, there had been discussion of lithium. She is also on latuda which she finds beneficial. We discussed that she does seem to benefit from antidepressant. PLAN 11/19- dc seroquel due to RLS. continue all other meds but if RLS will dc lyrica, she is on gabapentin for fibromyalgia. 11/20 increase latuda to 80mg po dinner time. d/c lyrica. continue all other meds. continue working on polypharmacy. 11/23- pt not able to sleep in past 2 nights, dysphoric, upset. It does appear that clonazepam was not renew and felt off and she did not receive any wednesday night and Wednesday AM and qhs. This was not intentional. Plan was for pt to continue clonazepam, gabapentin. Renew clonazepam. we discussed increasing gabapentin to BID. she also has ambien. But do suspect poor sleep and dysphoric affect may be in part related to not having clonazepam. Reason for continued inpatient stay Substantial Risk for: harm to self Time Spent With Patient Time: Total time managing care of this patient today ____ minutes.
[2022-11-23] MEDS: Nicotine Polacrilex Lozenge 4 MG LOZENGE BUCCAL ×2 (10:04→14:33)
[2022-11-23] MEDS: polyethylene glycoL 3350 17 GM POWD.PACK PO ×2 (10:04→20:55)
[2022-11-23] MEDS: Lurasidone HCl 80 MG TABLET PO (17:44)
[2022-11-23 20:45] VITALS: BP 130/74; PULSE 94; TEMP 36.6
[2022-11-23] MEDS: clonazePAM 1 MG TABLET PO (20:55)
[2022-11-23] MEDS: Zolpidem Tartrate 5 MG TABLET PO (20:55)
[2022-11-23] MEDS: Prazosin HCL 1 MG CAPSULE 6 MG PO (20:55)
[2022-11-23] MEDS: Gabapentin 100 MG CAPSULE 200 MG PO (20:55)
[2022-11-24 08:22] VITALS: BP 115/77; PULSE 97; RESP 16; TEMP 36.4; O2SAT 98
[2022-11-24] MEDS: Gabapentin 600 MG TABLET PO (09:18)
[2022-11-24] MEDS: Sennosides/Docusate Sodium TABLET 2 TAB PO (09:18)
[2022-11-24] MEDS: lamoTRIgine 100 MG TABLET 300 MG PO (09:18)
[2022-11-24] MEDS: clonazePAM 1 MG TABLET PO ×2 (09:18→21:35)
[2022-11-24] MEDS: buPROPion HCl XL 150 MG TAB.ER.24H PO (09:18)
[2022-11-24] MEDS: polyethylene glycoL 3350 17 GM POWD.PACK PO (09:19)
[2022-11-24] MEDS: Nicotine 21 MG PATCH.TD24 TRANSDERMA (09:19)
--- NOTE | 2022-11-24 10:59 | P.PNPSI_ITS ---
Subjective Subjective Date of Service: 11/24/22 Reason For Visit: Depression, si Subjective Notes: Conditional Voluntary Interim History: Pt reports feeling tired, although today she presents as much less dysphoric. She continues to endorse depressed mood, intermittent suicidal ideation. She reports she learned cousin . She also reports peers talking about selling their control substances and prices on the street. She reports this conversations are triggering for her and not conducive to therapeutic environment. No VH/AH Review of Systems Review of Systems Constitutional : No Weight loss, No Fever, No Chills, No Night Sweats, No Fatigue, No Malaise ENT/Mouth : No Hearing loss, No Ear Pain, No Nasal Congestion, No Sinus Pain, No Hoarseness, No sore throat, No Rhinorrhea, No Swallowing Difficulty Eyes: No Eye Pain, No Swelling, No Redness, No Foreign Body, No Discharge, No Vision Changes Cardiovascular : No Chest Pain, No SOB, No Dyspnea on Exertion, No Orthopnea, No Edema, No Palpitations Respiratory : No Cough, No Sputum, No Wheezing, No Smoke Exposure, No Dyspnea Gastrointestinal : No Nausea, No Vomiting, No Diarrhea, No Constipation, No abdominal Pain, No Hematochezia, No Melena Genitourinary : no irregular bleeding, No Dysuria, No Urinary Frequency, No Hematuria, No Urinary Incontinence, No Urgency, No Flank Pain, No Urinary Flow Changes, No Hesitancy Musculoskeletal : No joint pain, No Myalgias, No Joint Swelling Skin : No Skin Lesions, No rash Neuro : No Weakness, No Numbness, No Paresthesias, No Loss of Consciousness, No Dizziness, No Headache Psych : No Anxiety/Panic, complaining of depression and suicidal ideation, no homicidal ideation Heme/Lymph: No Bruising, No Bleeding,No Lymphadenopathy Endocrine : No Polyuria, No Polydipsia, No Temperature Intolerance Mental Status Exam Mental Status Exam Narrative: Appearance:casually groomed, good hygiene, in NAD behavior:cooperative Psychomotor: no agitation or retardation noted Speech:clear, normal rate/rhythm/volume, spontaneous TP:linear TC:hopeless, depressed Mood: very depressed and anxious Affect: dysphoric SI:passive HI:none VH/AH:none at this time but voices related to trauma Delusions:none Insight/judgment:fair x 2. memory/cog: alert, oriented x 3. grossly intact to conversational testing. Diagnostics Vital Signs (24Hr): Vital Signs - 24 hr 11/23/22 20:45 11/24/22 08:22 Temperature 97.8 F 97.5 F Pulse Rate 94 97 Respiratory Rate 16 Blood Pressure 130/74 115/77 Pulse Oximetry 98 Oxygen Delivery Method Room Air BMI result Body Mass Index 38.8 Labs 11/16/22 13:57 11/18/22 07:23 Medications Medications Current Medications Acetaminophen (Acetaminophen 325 Mg Tablet) 650 mg PO Q6H PRN PRN Reason: Headache/Pain Mild Scale (1-3) Last Admin: 11/20/22 11:55 Dose: 650 mg Al Hydroxide/Mg Hydroxide (Magnesium Hydrox/Alum Hydrox 30 Ml Oral.Susp) 30 ml PO Q6H PRN PRN Reason: Heartburn/Nausea Bupropion HCl (Bupropion Hcl Xl 150 Mg Tab.Er.24h) 150 mg PO DAILY [facility] Last Admin: 11/24/22 09:18 Dose: 150 mg Clonazepam (Clonazepam 1 Mg Tablet) 1 mg PO BID [facility] Last Admin: 11/24/22 09:18 Dose: 1 mg Gabapentin (Gabapentin 600 Mg Tablet) 600 mg PO DAILY [facility] Last Admin: 11/24/22 09:18 Dose: 600 mg Gabapentin (Gabapentin 100 Mg Capsule) 200 mg PO BEDTIME [facility] Last Admin: 11/23/22 20:55 Dose: 200 mg Hydroxyzine HCl (Hydroxyzine Hcl 25 Mg Tablet) 25 mg PO Q6H PRN PRN Reason: Anxiety Last Admin: 11/23/22 00:36 Dose: 25 mg Lamotrigine (Lamotrigine 100 Mg Tablet) 300 mg PO DAILY [facility] Last Admin: 11/24/22 09:18 Dose: 300 mg Lidocaine (Lidocaine 4 % Patch Adh..Patch) 1 patch TRANSDERMA DAILY [facility]; Protocol Last Admin: 11/24/22 09:21 Dose: Not Given [place] Carbonate ([place] Carbonate 300 Mg Capsule) 300 mg PO BID [facility] Lorazepam (Lorazepam 0.5 Mg Tablet) 0.5 mg PO DAILY PRN PRN Reason: Anxiety Last Admin: 11/23/22 16:39 Dose: 0.5 mg Lurasidone HCl (Lurasidone Hcl 80 Mg Tablet) 80 mg PO DAILY@1700 [facility] Last Admin: 11/23/22 17:44 Dose: 80 mg Magnesium Hydroxide (Milk Of Magnesia 30 Ml Oral.Susp) 30 ml PO DAILY PRN PRN Reason: Constipation Last Admin: 11/19/22 12:59 Dose: 30 ml Nicotine (Nicotine 21 Mg Patch.Td24) 21 mg TRANSDERMA DAILY [facility] Last Admin: 11/24/22 09:19 Dose: 21 mg Nicotine Polacrilex (Nicotine Polacrilex Lozenge 4 Mg Lozenge) 4 mg BUCCAL Q2H PRN PRN Reason: Nicotine Cravings Last Admin: 11/23/22 14:33 Dose: 4 mg Polyethylene Glycol (Polyethylene Glycol 3350 17 Gm Powd.Pack) 17 gm PO BID [facility] Last Admin: 11/24/22 09:19 Dose: 17 gm Prazosin HCl (Prazosin Hcl 1 Mg Capsule) 6 mg PO BEDTIME [facility]; Protocol Last Admin: 11/23/22 20:55 Dose: 6 mg Senna/Docusate Sodium (Sennosides/Docusate Sodium Tablet) 2 tab PO BID [facility] Last Admin: 11/24/22 09:18 Dose: 2 tab Trazodone HCl (Trazodone Hcl 100 Mg Tablet) 100 mg PO BEDTIME PRN PRN Reason: Insomnia Zolpidem Tartrate (Zolpidem Tartrate 5 Mg Tablet) 10 mg PO BEDTIME [facility] Allergies Allergies Allergy/AdvReac Type Severity Reaction Status Date / Time Penicillins Allergy Swelling Verified 08/06/22 11:05 Assessment & Plan Assessment & Plan (1) PTSD (post-traumatic stress disorder): Status: Acute Code(s): F43.10 - Post-traumatic stress disorder, unspecified (2) Bipolar disorder: Qualifiers: Active/Remission status: currently active Current bipolar episode type: depressed Current episode severity: moderate Qualified Code(s): F31.32 - Bipolar disorder, current episode depressed, moderate Status: Acute Code(s): F31.9 - Bipolar disorder, unspecified Plan Mrs. Glover is a 47 year-old woman with hx of PTSD, Bipolar Disorder who self presented to [facility] reporting increase depression,SI with plan to cut her wrist. We discussed risks, benefits and alternative treatment options. Pt's current medication regimen concern for polypharmacy. Pt is on both ativan and clonazepam, in addition to ambien. She is also on both gabapentin and lyrica. She reports gabapentin works for fibromyalgia but lyrica helps restless leg. She has not had sleep study- despite ongoing sleep disturbances which although related to her depression seem also worsened by underlying medical conditions such as RLS. I discussed with pt that I would like her to be on only one benzo either clonazepam or ativan but not both. She reports she does not think wellbutrin is working as it should. She states that previous admissions, there had been discussion of lithium. She is also on latuda which she finds beneficial. We discussed that she does seem to benefit from antidepressant. PLAN 11/19- dc seroquel due to RLS. continue all other meds but if RLS will dc lyrica, she is on gabapentin for fibromyalgia. 11/20 increase latuda to 80mg po dinner time. d/c lyrica. continue all other meds. continue working on polypharmacy. 11/23- pt not able to sleep in past 2 nights, dysphoric, upset. It does appear that clonazepam was not renew and felt off and she did not receive any wednesday night and Wednesday AM and qhs. This was not intentional. Plan was for pt to continue clonazepam, gabapentin. Renew clonazepam. we discussed increasing gabapentin to BID. she also has ambien. But do suspect poor sleep and dysphoric affect may be in part related to not having clonazepam. 11/24 start lithium 300mg po BID. pt reports taking higher dose of ambien at home- 10mg po qhs. continue gabapentin, wellbutrin and latuda. Reason for continued inpatient stay Substantial Risk for: harm to self Time Spent With Patient Time: Total time managing care of this patient today ____ minutes.
[2022-11-24] MEDS: Nicotine Polacrilex Lozenge 4 MG LOZENGE BUCCAL ×2 (11:51→16:28)
[2022-11-24] MEDS: Lithium Carbonate 300 MG CAPSULE PO ×2 (11:51→21:35)
[2022-11-24] MEDS: LORazepam 0.5 MG TABLET PO (16:28)
[2022-11-24] MEDS: Lurasidone HCl 80 MG TABLET PO (17:36)
[2022-11-24 21:19] VITALS: BP 117/78; PULSE 96; TEMP 36.4
[2022-11-24] MEDS: Gabapentin 100 MG CAPSULE 200 MG PO (21:35)
[2022-11-24] MEDS: Prazosin HCL 1 MG CAPSULE 6 MG PO (21:35)
[2022-11-24] MEDS: Zolpidem Tartrate 5 MG TABLET PO (21:35)
[2022-11-25 08:15] VITALS: BP 117/63; PULSE 96; RESP 16; TEMP 36.7; O2SAT 97
[2022-11-25] MEDS: Gabapentin 600 MG TABLET PO (08:16)
[2022-11-25] MEDS: lamoTRIgine 100 MG TABLET 300 MG PO (08:16)
[2022-11-25] MEDS: buPROPion HCl XL 150 MG TAB.ER.24H PO (08:16)
[2022-11-25] MEDS: Lithium Carbonate 300 MG CAPSULE PO ×2 (08:16→22:48)
[2022-11-25] MEDS: Sennosides/Docusate Sodium TABLET 2 TAB PO ×2 (08:17→22:48)
[2022-11-25] MEDS: clonazePAM 1 MG TABLET PO ×2 (08:17→22:48)
[2022-11-25] MEDS: Nicotine 21 MG PATCH.TD24 TRANSDERMA (08:19)
[2022-11-25] MEDS: polyethylene glycoL 3350 17 GM POWD.PACK PO ×2 (08:20→22:48)
[2022-11-25] MEDS: Nicotine Polacrilex Lozenge 4 MG LOZENGE BUCCAL ×2 (09:51→14:16)
--- NOTE | 2022-11-25 13:29 | HO.PSYCHPN ---
Subjective Subjective Date of Service: 11/25/22 Reason For Visit: Depression, si Subjective Notes: Conditional Voluntary Interim History: Pt reports sleep still fair, although nursing reports she slept through the night. She endorses depressed mood, intermittent suicidal ideation. No VH/AH. She has been visible on the unit and affect appears much brighter, although she denies this. We discussed that she may be able to have sleep study here tonight, however, pt states she wants to go to bed later as her favorite show is at 10pm. Pt reports increase anxious mood, restlessness- it could be increase in latuda. She also states she does not think wellbutrin works- wants to d/c this medications. pending lithium levels for wednesday. Medication Compliance: Yes Review of Systems Review of Systems Constitutional : No Weight loss, No Fever, No Chills, No Night Sweats, No Fatigue, No Malaise ENT/Mouth : No Hearing loss, No Ear Pain, No Nasal Congestion, No Sinus Pain, No Hoarseness, No sore throat, No Rhinorrhea, No Swallowing Difficulty Eyes: No Eye Pain, No Swelling, No Redness, No Foreign Body, No Discharge, No Vision Changes Cardiovascular : No Chest Pain, No SOB, No Dyspnea on Exertion, No Orthopnea, No Edema, No Palpitations Respiratory : No Cough, No Sputum, No Wheezing, No Smoke Exposure, No Dyspnea Gastrointestinal : No Nausea, No Vomiting, No Diarrhea, No Constipation, No abdominal Pain, No Hematochezia, No Melena Genitourinary : no irregular bleeding, No Dysuria, No Urinary Frequency, No Hematuria, No Urinary Incontinence, No Urgency, No Flank Pain, No Urinary Flow Changes, No Hesitancy Musculoskeletal : No joint pain, No Myalgias, No Joint Swelling Skin : No Skin Lesions, No rash Neuro : No Weakness, No Numbness, No Paresthesias, No Loss of Consciousness, No Dizziness, No Headache Psych : No Anxiety/Panic, complaining of depression and suicidal ideation, no homicidal ideation Heme/Lymph: No Bruising, No Bleeding,No Lymphadenopathy Endocrine : No Polyuria, No Polydipsia, No Temperature Intolerance Mental Status Exam Mental Status Exam Narrative: Appearance:casually groomed, good hygiene, in NAD behavior:cooperative Psychomotor: no agitation or retardation noted Speech:clear, normal rate/rhythm/volume, spontaneous TP:linear TC:hopeless, depressed Mood: very depressed and anxious Affect: dysphoric SI:passive HI:none VH/AH:none at this time but voices related to trauma Delusions:none Insight/judgment:fair x 2. memory/cog: alert, oriented x 3. grossly intact to conversational testing. Diagnostics Vital Signs (24Hr): Vital Signs - 24 hr 11/24/22 21:19 11/25/22 08:15 Temperature 97.6 F 98.1 F Pulse Rate 96 96 Respiratory Rate 16 Blood Pressure 117/78 117/63 Pulse Oximetry 97 Oxygen Delivery Method Room Air BMI result Body Mass Index 38.8 Labs 11/16/22 13:57 11/18/22 07:23 Medications Medications Current Medications Acetaminophen (Acetaminophen 325 Mg Tablet) 650 mg PO Q6H PRN PRN Reason: Headache/Pain Mild Scale (1-3) Last Admin: 11/20/22 11:55 Dose: 650 mg Al Hydroxide/Mg Hydroxide (Magnesium Hydrox/Alum Hydrox 30 Ml Oral.Susp) 30 ml PO Q6H PRN PRN Reason: Heartburn/Nausea Clonazepam (Clonazepam 1 Mg Tablet) 1 mg PO BID [facility] Last Admin: 11/25/22 08:17 Dose: 1 mg Gabapentin (Gabapentin 600 Mg Tablet) 600 mg PO DAILY [facility] Last Admin: 11/25/22 08:16 Dose: 600 mg Gabapentin (Gabapentin 100 Mg Capsule) 200 mg PO BEDTIME [facility] Last Admin: 11/24/22 21:35 Dose: 200 mg Hydroxyzine HCl (Hydroxyzine Hcl 25 Mg Tablet) 25 mg PO Q6H PRN PRN Reason: Anxiety Last Admin: 11/23/22 00:36 Dose: 25 mg Lamotrigine (Lamotrigine 100 Mg Tablet) 300 mg PO DAILY [facility] Last Admin: 11/25/22 08:16 Dose: 300 mg Lidocaine (Lidocaine 4 % Patch Adh..Patch) 1 patch TRANSDERMA DAILY [facility]; Protocol Last Admin: 11/25/22 08:23 Dose: Not Given [place] Carbonate ([place] Carbonate 300 Mg Capsule) 300 mg PO BID [facility] Last Admin: 11/25/22 08:16 Dose: 300 mg Lorazepam (Lorazepam 0.5 Mg Tablet) 0.5 mg PO DAILY PRN PRN Reason: Anxiety Last Admin: 11/24/22 16:28 Dose: 0.5 mg Magnesium Hydroxide (Milk Of Magnesia 30 Ml Oral.Susp) 30 ml PO DAILY PRN PRN Reason: Constipation Last Admin: 11/19/22 12:59 Dose: 30 ml Nicotine (Nicotine 21 Mg Patch.Td24) 21 mg TRANSDERMA DAILY [facility] Last Admin: 11/25/22 08:19 Dose: 21 mg Nicotine Polacrilex (Nicotine Polacrilex Lozenge 4 Mg Lozenge) 4 mg BUCCAL Q2H PRN PRN Reason: Nicotine Cravings Last Admin: 11/25/22 09:51 Dose: 4 mg Polyethylene Glycol (Polyethylene Glycol 3350 17 Gm Powd.Pack) 17 gm PO BID [facility] Last Admin: 11/25/22 08:20 Dose: 17 gm Prazosin HCl (Prazosin Hcl 1 Mg Capsule) 6 mg PO BEDTIME [facility]; Protocol Last Admin: 11/24/22 21:35 Dose: 6 mg Senna/Docusate Sodium (Sennosides/Docusate Sodium Tablet) 2 tab PO BID [facility] Last Admin: 11/25/22 08:17 Dose: 2 tab Trazodone HCl (Trazodone Hcl 100 Mg Tablet) 100 mg PO BEDTIME PRN PRN Reason: Insomnia Zolpidem Tartrate (Zolpidem Tartrate 5 Mg Tablet) 10 mg PO BEDTIME [facility] Allergies Allergies Allergy/AdvReac Type Severity Reaction Status Date / Time Penicillins Allergy Swelling Verified 08/06/22 11:05 Assessment & Plan Assessment & Plan (1) PTSD (post-traumatic stress disorder): Status: Acute Code(s): F43.10 - Post-traumatic stress disorder, unspecified (2) Bipolar disorder: Qualifiers: Active/Remission status: currently active Current bipolar episode type: depressed Current episode severity: moderate Qualified Code(s): F31.32 - Bipolar disorder, current episode depressed, moderate Status: Acute Code(s): F31.9 - Bipolar disorder, unspecified Plan Mrs. Glover is a 47 year-old woman with hx of PTSD, Bipolar Disorder who self presented to [facility] [place] [facility] reporting increase depression,SI with plan to cut her wrist. We discussed risks, benefits and alternative treatment options. Pt's current medication regimen concern for polypharmacy. Pt is on both ativan and clonazepam, in addition to ambien. She is also on both gabapentin and lyrica. She reports gabapentin works for fibromyalgia but lyrica helps restless leg. She has not had sleep study- despite ongoing sleep disturbances which although related to her depression seem also worsened by underlying medical conditions such as RLS. I discussed with pt that I would like her to be on only one benzo either clonazepam or ativan but not both. She reports she does not think wellbutrin is working as it should. She states that previous admissions, there had been discussion of lithium. She is also on latuda which she finds beneficial. We discussed that she does seem to benefit from antidepressant. PLAN 11/19- dc seroquel due to RLS. continue all other meds but if RLS will dc lyrica, she is on gabapentin for fibromyalgia. 11/20 increase latuda to 80mg po dinner time. d/c lyrica. continue all other meds. continue working on polypharmacy. 11/23- pt not able to sleep in past 2 nights, dysphoric, upset. It does appear that clonazepam was not renew and felt off and she did not receive any wednesday night and Wednesday AM and qhs. This was not intentional. Plan was for pt to continue clonazepam, gabapentin. Renew clonazepam. we discussed increasing gabapentin to BID. she also has ambien. But do suspect poor sleep and dysphoric affect may be in part related to not having clonazepam. 11/24 start lithium 300mg po BID. pt reports taking higher dose of ambien at home- 10mg po qhs. continue gabapentin, wellbutrin and latuda. 11/25 d/c latuda- ? of increase restlessness with higher dose and also pt would like to try vraylar instead. d/c wellbutrin pt reports no efficacy. continue lithium- check level on Nov 30 Reason for continued inpatient stay Substantial Risk for: inability to function Time Spent With Patient Time: Total time managing care of this patient today ____ minutes.
[2022-11-25] MEDS: LORazepam 0.5 MG TABLET PO (14:16)
[2022-11-25] MEDS: Milk of Magnesia 30 ML ORAL.SUSP PO (16:47)
[2022-11-25 22:45] VITALS: BP 112/78; PULSE 89; RESP 18; TEMP 37.1
[2022-11-25] MEDS: Prazosin HCL 1 MG CAPSULE 6 MG PO (22:47)
[2022-11-25] MEDS: Zolpidem Tartrate 5 MG TABLET 10 MG PO (22:48)
[2022-11-25] MEDS: Gabapentin 100 MG CAPSULE 200 MG PO (22:48)
[2022-11-26 08:00] VITALS: BP 110/64; PULSE 96; RESP 16; TEMP 36.8; O2SAT 97
[2022-11-26] MEDS: Sennosides/Docusate Sodium TABLET 2 TAB PO ×2 (08:15→19:43)
[2022-11-26] MEDS: Gabapentin 600 MG TABLET PO (08:15)
[2022-11-26] MEDS: clonazePAM 1 MG TABLET PO ×2 (08:16→19:43)
[2022-11-26] MEDS: Lithium Carbonate 300 MG CAPSULE PO (08:16)
[2022-11-26] MEDS: Cariprazine HCl 1.5 MG CAPSULE PO (08:16)
[2022-11-26] MEDS: lamoTRIgine 100 MG TABLET 300 MG PO (08:16)
[2022-11-26] MEDS: Nicotine 21 MG PATCH.TD24 TRANSDERMA (08:17)
[2022-11-26] MEDS: polyethylene glycoL 3350 17 GM POWD.PACK PO (08:19)
[2022-11-26] MEDS: Nicotine Polacrilex Lozenge 4 MG LOZENGE BUCCAL ×2 (13:11→18:30)
--- NOTE | 2022-11-26 16:18 | P.PNPSI_ITS ---
Subjective Subjective Date of Service: 11/26/22 Reason For Visit: Depression, si Subjective Notes: Conditional Voluntary Interim History: Pt reports feeling tired, still mood up and down. Intermittent SI but no plan or intent to harm herself. She reports triggering being on the unit as peers talking about substance use. She is observed on the unit, social with select peers and staff, brighter affect at times than reported mood. Nursing continues to report she sleeps through the night, but pt insists she does not sleep. no side effects with medications. Review of Systems Review of Systems Constitutional : No Weight loss, No Fever, No Chills, No Night Sweats, No Fatigue, No Malaise ENT/Mouth : No Hearing loss, No Ear Pain, No Nasal Congestion, No Sinus Pain, No Hoarseness, No sore throat, No Rhinorrhea, No Swallowing Difficulty Eyes: No Eye Pain, No Swelling, No Redness, No Foreign Body, No Discharge, No Vision Changes Cardiovascular : No Chest Pain, No SOB, No Dyspnea on Exertion, No Orthopnea, No Edema, No Palpitations Respiratory : No Cough, No Sputum, No Wheezing, No Smoke Exposure, No Dyspnea Gastrointestinal : No Nausea, No Vomiting, No Diarrhea, No Constipation, No abdominal Pain, No Hematochezia, No Melena Genitourinary : no irregular bleeding, No Dysuria, No Urinary Frequency, No Hematuria, No Urinary Incontinence, No Urgency, No Flank Pain, No Urinary Flow Changes, No Hesitancy Musculoskeletal : No joint pain, No Myalgias, No Joint Swelling Skin : No Skin Lesions, No rash Neuro : No Weakness, No Numbness, No Paresthesias, No Loss of Consciousness, No Dizziness, No Headache Psych : No Anxiety/Panic, complaining of depression and suicidal ideation, no homicidal ideation Heme/Lymph: No Bruising, No Bleeding,No Lymphadenopathy Endocrine : No Polyuria, No Polydipsia, No Temperature Intolerance Mental Status Exam Mental Status Exam Narrative: Appearance:casually groomed, good hygiene, in NAD behavior:cooperative Psychomotor: no agitation or retardation noted Speech:clear, normal rate/rhythm/volume, spontaneous TP:linear TC:hopeless, depressed Mood: very depressed and anxious Affect: dysphoric SI:passive HI:none VH/AH:none at this time but voices related to trauma Delusions:none Insight/judgment:fair x 2. memory/cog: alert, oriented x 3. grossly intact to conversational testing. Diagnostics Vital Signs (24Hr): Vital Signs - 24 hr 11/25/22 22:45 11/26/22 08:00 Temperature 98.7 F 98.2 F Pulse Rate 89 96 Respiratory Rate 18 16 Blood Pressure 112/78 110/64 Pulse Oximetry 97 Oxygen Delivery Method Room Air BMI result Body Mass Index 38.8 Labs 11/16/22 13:57 11/18/22 07:23 Medications Medications Current Medications Acetaminophen (Acetaminophen 325 Mg Tablet) 650 mg PO Q6H PRN PRN Reason: Headache/Pain Mild Scale (1-3) Last Admin: 11/20/22 11:55 Dose: 650 mg Al Hydroxide/Mg Hydroxide (Magnesium Hydrox/Alum Hydrox 30 Ml Oral.Susp) 30 ml PO Q6H PRN PRN Reason: Heartburn/Nausea Cariprazine (Cariprazine Hcl 1.5 Mg Capsule) 1.5 mg PO DAILY [facility] Last Admin: 11/26/22 08:16 Dose: 1.5 mg Clonazepam (Clonazepam 1 Mg Tablet) 1 mg PO BID [facility] Last Admin: 11/26/22 08:16 Dose: 1 mg Gabapentin (Gabapentin 600 Mg Tablet) 600 mg PO DAILY [facility] Last Admin: 11/26/22 08:15 Dose: 600 mg Gabapentin (Gabapentin 100 Mg Capsule) 200 mg PO BEDTIME [facility] Last Admin: 11/25/22 22:48 Dose: 200 mg Hydroxyzine HCl (Hydroxyzine Hcl 25 Mg Tablet) 25 mg PO Q6H PRN PRN Reason: Anxiety Last Admin: 11/23/22 00:36 Dose: 25 mg Lamotrigine (Lamotrigine 100 Mg Tablet) 300 mg PO DAILY [facility] Last Admin: 11/26/22 08:16 Dose: 300 mg Lidocaine (Lidocaine 4 % Patch Adh..Patch) 1 patch TRANSDERMA DAILY [facility]; Protocol Last Admin: 11/26/22 08:20 Dose: Not Given [place] Carbonate ([place] Carbonate 300 Mg Capsule) 600 mg PO BID [facility] Lorazepam (Lorazepam 0.5 Mg Tablet) 0.5 mg PO DAILY PRN PRN Reason: Anxiety Last Admin: 11/25/22 14:16 Dose: 0.5 mg Magnesium Hydroxide (Milk Of Magnesia 30 Ml Oral.Susp) 30 ml PO DAILY PRN PRN Reason: Constipation Last Admin: 11/25/22 16:47 Dose: 30 ml Nicotine (Nicotine 21 Mg Patch.Td24) 21 mg TRANSDERMA DAILY [facility] Last Admin: 11/26/22 08:17 Dose: 21 mg Nicotine Polacrilex (Nicotine Polacrilex Lozenge 4 Mg Lozenge) 4 mg BUCCAL Q2H PRN PRN Reason: Nicotine Cravings Last Admin: 11/26/22 13:11 Dose: 4 mg Polyethylene Glycol (Polyethylene Glycol 3350 17 Gm Powd.Pack) 17 gm PO BID [facility] Last Admin: 11/26/22 08:19 Dose: 17 gm Prazosin HCl (Prazosin Hcl 1 Mg Capsule) 6 mg PO BEDTIME [facility]; Protocol Last Admin: 11/25/22 22:47 Dose: 6 mg Senna/Docusate Sodium (Sennosides/Docusate Sodium Tablet) 2 tab PO BID [facility] Last Admin: 11/26/22 08:15 Dose: 2 tab Trazodone HCl (Trazodone Hcl 100 Mg Tablet) 100 mg PO BEDTIME PRN PRN Reason: Insomnia Zolpidem Tartrate (Zolpidem Tartrate 5 Mg Tablet) 10 mg PO BEDTIME [facility] Last Admin: 11/25/22 22:48 Dose: 10 mg Allergies Allergies Allergy/AdvReac Type Severity Reaction Status Date / Time Penicillins Allergy Swelling Verified 08/06/22 11:05 Assessment & Plan Assessment & Plan (1) PTSD (post-traumatic stress disorder): Status: Acute Code(s): F43.10 - Post-traumatic stress disorder, unspecified (2) Bipolar disorder: Qualifiers: Active/Remission status: currently active Current bipolar episode type: depressed Current episode severity: moderate Qualified Code(s): F31.32 - Bipolar disorder, current episode depressed, moderate Status: Acute Code(s): F31.9 - Bipolar disorder, unspecified Plan Mrs. Glover is a 47 year-old woman with hx of PTSD, Bipolar Disorder who self presented to [facility] reporting increase depression,SI with plan to cut her wrist. We discussed risks, benefits and alternative treatment options. Pt's current medication regimen concern for polypharmacy. Pt is on both ativan and clonazepam, in addition to ambien. She is also on both gabapentin and lyrica. She reports gabapentin works for fibromyalgia but lyrica helps restless leg. She has not had sleep study- despite ongoing sleep disturbances which although related to her depression seem also worsened by underlying medical conditions such as RLS. I discussed with pt that I would like her to be on only one benzo either clonazepam or ativan but not both. She reports she does not think wellbutrin is working as it should. She states that previous admissions, there had been discussion of lithium. She is also on latuda which she finds beneficial. We discussed that she does seem to benefit from antidepressant. PLAN 11/19- dc seroquel due to RLS. continue all other meds but if RLS will dc lyrica, she is on gabapentin for fibromyalgia. 11/20 increase latuda to 80mg po dinner time. d/c lyrica. continue all other meds. continue working on polypharmacy. 11/23- pt not able to sleep in past 2 nights, dysphoric, upset. It does appear that clonazepam was not renew and felt off and she did not receive any wednesday night and Wednesday AM and qhs. This was not intentional. Plan was for pt to continue clonazepam, gabapentin. Renew clonazepam. we discussed increasing gabapentin to BID. she also has ambien. But do suspect poor sleep and dysphoric affect may be in part related to not having clonazepam. 11/24 start lithium 300mg po BID. pt reports taking higher dose of ambien at home- 10mg po qhs. continue gabapentin, wellbutrin and latuda. 11/25 d/c latuda- ? of increase restlessness with higher dose and also pt would like to try vraylar instead. d/c wellbutrin pt reports no efficacy. continue lithium- check level on Nov 3011/26 continue tx. Reason for continued inpatient stay Substantial Risk for: harm to self Time Spent With Patient Time: Total time managing care of this patient today ____ minutes.
[2022-11-26] MEDS: LORazepam 0.5 MG TABLET PO (18:30)
[2022-11-26 19:40] VITALS: BP 125/81; PULSE 105; RESP 18; TEMP 36.4
[2022-11-26] MEDS: Gabapentin 100 MG CAPSULE 200 MG PO (19:42)
[2022-11-26] MEDS: Lithium Carbonate 300 MG CAPSULE 600 MG PO (19:42)
[2022-11-26] MEDS: Zolpidem Tartrate 5 MG TABLET 10 MG PO (19:43)
[2022-11-26] MEDS: Prazosin HCL 1 MG CAPSULE 6 MG PO (19:43)
[2022-11-27] MEDS: hydrOXYzine HCL 25 MG TABLET PO (01:55)
[2022-11-27] MEDS: Gabapentin 600 MG TABLET PO (08:27)
[2022-11-27] MEDS: lamoTRIgine 100 MG TABLET 300 MG PO (08:27)
[2022-11-27] MEDS: Lithium Carbonate 300 MG CAPSULE 600 MG PO ×2 (08:27→19:59)
[2022-11-27] MEDS: clonazePAM 1 MG TABLET PO ×2 (08:28→19:59)
[2022-11-27] MEDS: Cariprazine HCl 1.5 MG CAPSULE PO (08:28)
[2022-11-27] MEDS: Acetaminophen 325 MG TABLET 650 MG PO (08:34)
[2022-11-27 08:52] VITALS: BP 126/73; PULSE 98; RESP 16; TEMP 36.3; O2SAT 96
[2022-11-27] MEDS: Nicotine Polacrilex Lozenge 4 MG LOZENGE BUCCAL (14:17)
[2022-11-27] MEDS: polyethylene glycoL 3350 17 GM POWD.PACK PO (14:17)
[2022-11-27] MEDS: Lidocaine 4 % Patch ADH..PATCH 1 PATCH TRANSDERMA (14:17)
--- NOTE | 2022-11-27 19:38 | P.PNPSI_ITS ---
Subjective Subjective Date of Service: 11/27/22 Reason For Visit: Depression, si Subjective Notes: Conditional Voluntary Interim History: Pt reports her mood is improving but learned that roommate knew her brother and roommate partner was brother's drug dealer. Pt reports feeling triggered and upset as brother did of opioid overdose. She denies SI/HI. We discussed with team transfer to , which pt is in agreement. Continue to work on polypharmacy- pt on 2 benzodiazepines, off lyrica, continued on gabapentin, wellbutrin d/c per pt request, latuda d/c, pt now on vraylar, pt also on ambien. She is on lithium and lamictal. Review of Systems Review of Systems Constitutional : No Weight loss, No Fever, No Chills, No Night Sweats, No Fatigue, No Malaise ENT/Mouth : No Hearing loss, No Ear Pain, No Nasal Congestion, No Sinus Pain, No Hoarseness, No sore throat, No Rhinorrhea, No Swallowing Difficulty Eyes: No Eye Pain, No Swelling, No Redness, No Foreign Body, No Discharge, No Vision Changes Cardiovascular : No Chest Pain, No SOB, No Dyspnea on Exertion, No Orthopnea, No Edema, No Palpitations Respiratory : No Cough, No Sputum, No Wheezing, No Smoke Exposure, No Dyspnea Gastrointestinal : No Nausea, No Vomiting, No Diarrhea, No Constipation, No abdominal Pain, No Hematochezia, No Melena Genitourinary : no irregular bleeding, No Dysuria, No Urinary Frequency, No Hematuria, No Urinary Incontinence, No Urgency, No Flank Pain, No Urinary Flow Changes, No Hesitancy Musculoskeletal : No joint pain, No Myalgias, No Joint Swelling Skin : No Skin Lesions, No rash Neuro : No Weakness, No Numbness, No Paresthesias, No Loss of Consciousness, No Dizziness, No Headache Psych : No Anxiety/Panic, complaining of depression and suicidal ideation, no homicidal ideation Heme/Lymph: No Bruising, No Bleeding,No Lymphadenopathy Endocrine : No Polyuria, No Polydipsia, No Temperature Intolerance Mental Status Exam Mental Status Exam Narrative: Appearance:casually groomed, good hygiene, in NAD behavior:cooperative Psychomotor: no agitation or retardation noted Speech:clear, normal rate/rhythm/volume, spontaneous TP:linear TC:hopeless, depressed Mood: very depressed and anxious Affect: dysphoric SI:passive HI:none VH/AH:none at this time but voices related to trauma Delusions:none Insight/judgment:fair x 2. memory/cog: alert, oriented x 3. grossly intact to conversational testing. Diagnostics Vital Signs (24Hr): Vital Signs - 24 hr 11/26/22 19:40 11/27/22 08:52 Temperature 97.5 F 97.3 F Pulse Rate 105 H 98 Respiratory Rate 18 16 Blood Pressure 125/81 126/73 Pulse Oximetry 96 Oxygen Delivery Method Room Air BMI result Body Mass Index 38.8 Labs 11/16/22 13:57 11/18/22 07:23 Medications Medications Current Medications Acetaminophen (Acetaminophen 325 Mg Tablet) 650 mg PO Q6H PRN PRN Reason: Headache/Pain Mild Scale (1-3) Last Admin: 11/27/22 08:34 Dose: 650 mg Al Hydroxide/Mg Hydroxide (Magnesium Hydrox/Alum Hydrox 30 Ml Oral.Susp) 30 ml PO Q6H PRN PRN Reason: Heartburn/Nausea Cariprazine (Cariprazine Hcl 1.5 Mg Capsule) 1.5 mg PO DAILY [facility] Last Admin: 11/27/22 08:28 Dose: 1.5 mg Clonazepam (Clonazepam 1 Mg Tablet) 1 mg PO BID [facility] Last Admin: 11/27/22 08:28 Dose: 1 mg Gabapentin (Gabapentin 600 Mg Tablet) 600 mg PO DAILY [facility] Last Admin: 11/27/22 08:27 Dose: 600 mg Gabapentin (Gabapentin 100 Mg Capsule) 200 mg PO BEDTIME [facility] Last Admin: 11/26/22 19:42 Dose: 200 mg Hydroxyzine HCl (Hydroxyzine Hcl 25 Mg Tablet) 25 mg PO Q6H PRN PRN Reason: Anxiety Last Admin: 11/27/22 01:55 Dose: 25 mg Lamotrigine (Lamotrigine 100 Mg Tablet) 300 mg PO DAILY [facility] Last Admin: 11/27/22 08:27 Dose: 300 mg Lidocaine (Lidocaine 4 % Patch Adh..Patch) 1 patch TRANSDERMA DAILY [facility]; Protocol Last Admin: 11/27/22 14:17 Dose: 1 patch [place] Carbonate ([place] Carbonate 300 Mg Capsule) 600 mg PO BID [facility] Last Admin: 11/27/22 08:27 Dose: 600 mg Lorazepam (Lorazepam 0.5 Mg Tablet) 0.5 mg PO DAILY PRN PRN Reason: Anxiety Last Admin: 11/26/22 18:30 Dose: 0.5 mg Magnesium Hydroxide (Milk Of Magnesia 30 Ml Oral.Susp) 30 ml PO DAILY PRN PRN Reason: Constipation Last Admin: 11/25/22 16:47 Dose: 30 ml Nicotine (Nicotine 21 Mg Patch.Td24) 21 mg TRANSDERMA DAILY [facility] Last Admin: 11/27/22 08:30 Dose: Not Given Nicotine Polacrilex (Nicotine Polacrilex Lozenge 4 Mg Lozenge) 4 mg BUCCAL Q2H PRN PRN Reason: Nicotine Cravings Last Admin: 11/27/22 14:17 Dose: 4 mg Polyethylene Glycol (Polyethylene Glycol 3350 17 Gm Powd.Pack) 17 gm PO BID [facility] Last Admin: 11/27/22 14:17 Dose: 17 gm Prazosin HCl (Prazosin Hcl 1 Mg Capsule) 6 mg PO BEDTIME [facility]; Protocol Last Admin: 11/26/22 19:43 Dose: 6 mg Senna/Docusate Sodium (Sennosides/Docusate Sodium Tablet) 2 tab PO BID [facility] Last Admin: 11/27/22 08:28 Dose: Not Given Trazodone HCl (Trazodone Hcl 100 Mg Tablet) 100 mg PO BEDTIME PRN PRN Reason: Insomnia Zolpidem Tartrate (Zolpidem Tartrate 5 Mg Tablet) 10 mg PO BEDTIME [facility] Last Admin: 11/26/22 19:43 Dose: 10 mg Allergies Allergies Allergy/AdvReac Type Severity Reaction Status Date / Time Penicillins Allergy Swelling Verified 08/06/22 11:05 Assessment & Plan Assessment & Plan (1) PTSD (post-traumatic stress disorder): Status: Acute Code(s): F43.10 - Post-traumatic stress disorder, unspecified (2) Bipolar disorder: Qualifiers: Active/Remission status: currently active Current bipolar episode type: depressed Current episode severity: moderate Qualified Code(s): F31.32 - Bipolar disorder, current episode depressed, moderate Status: Acute Code(s): F31.9 - Bipolar disorder, unspecified Plan Mrs. Glover is a 47 year-old woman with hx of PTSD, Bipolar Disorder who self presented to [facility] reporting increase depression,SI with plan to cut her wrist. We discussed risks, benefits and alternative treatment options. Pt's current medication regimen concern for polypharmacy. Pt is on both ativan and clonazepam, in addition to ambien. She is also on both gabapentin and lyrica. She reports gabapentin works for fibromyalgia but lyrica helps restless leg. She has not had sleep study- despite ongoing sleep disturbances which although related to her depression seem also worsened by underlying medical conditions such as RLS. I discussed with pt that I would like her to be on only one benzo either clonazepam or ativan but not both. She reports she does not think wellbutrin is working as it should. She states that previous admissions, there had been discussion of lithium. She is also on latuda which she finds beneficial. We discussed that she does seem to benefit from antidepressant. PLAN 11/19- dc seroquel due to RLS. continue all other meds but if RLS will dc lyrica, she is on gabapentin for fibromyalgia. 11/20 increase latuda to 80mg po dinner time. d/c lyrica. continue all other meds. continue working on polypharmacy. 11/23- pt not able to sleep in past 2 nights, dysphoric, upset. It does appear that clonazepam was not renew and felt off and she did not receive any wednesday night and Wednesday AM and qhs. This was not intentional. Plan was for pt to continue clonazepam, gabapentin. Renew clonazepam. we discussed increasing gabapentin to BID. she also has ambien. But do suspect poor sleep and dysphoric affect may be in part related to not having clonazepam. 11/24 start lithium 300mg po BID. pt reports taking higher dose of ambien at home- 10mg po qhs. continue gabapentin, wellbutrin and latuda. 11/25 d/c latuda- ? of increase restlessness with higher dose and also pt would like to try vraylar instead. d/c wellbutrin pt reports no efficacy. continue lithium- check level on Nov 3011/26 continue tx lithium increase to 600mg po BID 11/27 Continue to work on polypharmacy- pt on 2 benzodiazepines, off lyrica, continued on gabapentin, wellbutrin d/c per pt request, latuda d/c, pt now on vraylar, pt also on ambien. She is on lithium and lamictal. Reason for continued inpatient stay Substantial Risk for: harm to self Time Spent With Patient Time: Total time managing care of this patient today ____ minutes.
[2022-11-27] MEDS: Gabapentin 100 MG CAPSULE 200 MG PO (19:58)
[2022-11-27] MEDS: Prazosin HCL 1 MG CAPSULE 6 MG PO (19:59)
[2022-11-27] MEDS: Zolpidem Tartrate 5 MG TABLET 10 MG PO (19:59)
[2022-11-27 20:41] VITALS: BP 146/70; PULSE 95; RESP 18; TEMP 36.6; O2SAT 98
[2022-11-28] MEDS: hydrOXYzine HCL 25 MG TABLET PO (03:57)
[2022-11-28] MEDS: LORazepam 0.5 MG TABLET PO (03:57)
[2022-11-28 08:11] LABS: Lithium 0.79 mmol/L (0.60-1.20)
[2022-11-28 09:00] VITALS: BP 131/81; PULSE 80; RESP 16; TEMP 36.1; O2SAT 99
[2022-11-28] MEDS: lamoTRIgine 100 MG TABLET 300 MG PO (09:08)
[2022-11-28] MEDS: Cariprazine HCl 1.5 MG CAPSULE PO (09:08)
[2022-11-28] MEDS: clonazePAM 1 MG TABLET PO ×2 (09:08→21:55)
[2022-11-28] MEDS: Gabapentin 600 MG TABLET PO (09:09)
[2022-11-28] MEDS: Lithium Carbonate 300 MG CAPSULE 600 MG PO ×2 (09:09→21:55)
[2022-11-28] MEDS: Nicotine Polacrilex Lozenge 4 MG LOZENGE BUCCAL (14:55)
--- NOTE | 2022-11-28 15:52 | HO.PSYCHPN ---
Subjective Subjective Date of Service: 11/28/22 Reason For Visit: Depression, si Interim History: tearful, requesting discharge, says her ride is on the way. MD declined discharge informing pt we will continue current plan. pt c/o insomnia but declines to collaborate with MD on sleep plan. per staff, endorsing dep/.SI. c/o insomnia. asking for discharge. Mental Status Exam Mental Status Exam Narrative: Appearance:casually groomed, good hygiene, in NAD behavior:cooperative Psychomotor: no agitation or retardation noted Speech:clear, normal rate/rhythm/volume, spontaneous TP:linear TC: anxiety, discharge Mood: anxious Affect: dysphoric, tearful SI: denies HI: denies VH/AH: denies Insight/judgment:fair x 2. memory/cog: alert, oriented x 3. grossly intact to conversational testing. Diagnostics Vital Signs (24Hr): Vital Signs - 24 hr 11/27/22 20:41 11/28/22 09:00 11/28/22 09:00 Temperature 97.9 F 96.9 F 96.9 F Pulse Rate 95 80 80 Respiratory Rate 18 16 Blood Pressure 146/70 H 131/81 131/81 Pulse Oximetry 98 99 99 Oxygen Delivery Method Room Air Room Air Room Air BMI result Body Mass Index 38.8 Labs 11/16/22 13:57 11/18/22 07:23 Labs: Laboratory Results - last 48 hr 11/28/22 07:21 Elaine 0.79 Medications Medications Current Medications Acetaminophen (Acetaminophen 325 Mg Tablet) 650 mg PO Q6H PRN PRN Reason: Headache/Pain Mild Scale (1-3) Last Admin: 11/27/22 08:34 Dose: 650 mg Al Hydroxide/Mg Hydroxide (Magnesium Hydrox/Alum Hydrox 30 Ml Oral.Susp) 30 ml PO Q6H PRN PRN Reason: Heartburn/Nausea Cariprazine (Cariprazine Hcl 1.5 Mg Capsule) 1.5 mg PO DAILY [facility] Last Admin: 11/28/22 09:08 Dose: 1.5 mg Clonazepam (Clonazepam 1 Mg Tablet) 1 mg PO BID [facility] Last Admin: 11/28/22 09:08 Dose: 1 mg Gabapentin (Gabapentin 600 Mg Tablet) 600 mg PO DAILY [facility] Last Admin: 11/28/22 09:09 Dose: 600 mg Gabapentin (Gabapentin 100 Mg Capsule) 200 mg PO BEDTIME [facility] Last Admin: 11/27/22 19:58 Dose: 200 mg Hydroxyzine HCl (Hydroxyzine Hcl 25 Mg Tablet) 25 mg PO Q6H PRN PRN Reason: Anxiety Last Admin: 11/28/22 03:57 Dose: 25 mg Lamotrigine (Lamotrigine 100 Mg Tablet) 300 mg PO DAILY [facility] Last Admin: 11/28/22 09:08 Dose: 300 mg Lidocaine (Lidocaine 4 % Patch Adh..Patch) 1 patch TRANSDERMA DAILY [facility]; Protocol Last Admin: 11/28/22 09:09 Dose: Not Given [place] Carbonate ([place] Carbonate 300 Mg Capsule) 600 mg PO BID [facility] Last Admin: 11/28/22 09:09 Dose: 600 mg Lorazepam (Lorazepam 0.5 Mg Tablet) 0.5 mg PO DAILY PRN PRN Reason: Anxiety Last Admin: 11/28/22 03:57 Dose: 0.5 mg Magnesium Hydroxide (Milk Of Magnesia 30 Ml Oral.Susp) 30 ml PO DAILY PRN PRN Reason: Constipation Last Admin: 11/25/22 16:47 Dose: 30 ml Nicotine (Nicotine 21 Mg Patch.Td24) 21 mg TRANSDERMA DAILY [facility] Last Admin: 11/28/22 09:09 Dose: Not Given Nicotine Polacrilex (Nicotine Polacrilex Lozenge 4 Mg Lozenge) 4 mg BUCCAL Q2H PRN PRN Reason: Nicotine Cravings Last Admin: 11/28/22 14:55 Dose: 4 mg Polyethylene Glycol (Polyethylene Glycol 3350 17 Gm Powd.Pack) 17 gm PO BID [facility] Last Admin: 11/28/22 09:09 Dose: Not Given Prazosin HCl (Prazosin Hcl 1 Mg Capsule) 6 mg PO BEDTIME [facility]; Protocol Last Admin: 11/27/22 19:59 Dose: 6 mg Senna/Docusate Sodium (Sennosides/Docusate Sodium Tablet) 2 tab PO BID [facility] Last Admin: 11/28/22 09:12 Dose: Not Given Trazodone HCl (Trazodone Hcl 100 Mg Tablet) 100 mg PO BEDTIME PRN PRN Reason: Insomnia Zolpidem Tartrate (Zolpidem Tartrate 5 Mg Tablet) 10 mg PO BEDTIME [facility] Last Admin: 11/27/22 19:59 Dose: 10 mg Allergies Allergies Allergy/AdvReac Type Severity Reaction Status Date / Time Penicillins Allergy Swelling Verified 08/06/22 11:05 Assessment & Plan Assessment & Plan (1) PTSD (post-traumatic stress disorder): Status: Acute Code(s): F43.10 - Post-traumatic stress disorder, unspecified (2) Bipolar disorder: Qualifiers: Active/Remission status: currently active Current bipolar episode type: depressed Current episode severity: moderate Qualified Code(s): F31.32 - Bipolar disorder, current episode depressed, moderate Status: Acute Code(s): F31.9 - Bipolar disorder, unspecified Plan Mrs. Glover is a 47 year-old woman with hx of PTSD, Bipolar Disorder who self presented to [facility] reporting increase depression,SI with plan to cut her wrist. We discussed risks, benefits and alternative treatment options. Pt's current medication regimen concern for polypharmacy. Pt is on both ativan and clonazepam, in addition to ambien. She is also on both gabapentin and lyrica. She reports gabapentin works for fibromyalgia but lyrica helps restless leg. She has not had sleep study- despite ongoing sleep disturbances which although related to her depression seem also worsened by underlying medical conditions such as RLS. I discussed with pt that I would like her to be on only one benzo either clonazepam or ativan but not both. She reports she does not think wellbutrin is working as it should. She states that previous admissions, there had been discussion of lithium. She is also on latuda which she finds beneficial. We discussed that she does seem to benefit from antidepressant. PLAN 11/19- dc seroquel due to RLS. continue all other meds but if RLS will dc lyrica, she is on gabapentin for fibromyalgia. 11/20 increase latuda to 80mg po dinner time. d/c lyrica. continue all other meds. continue working on polypharmacy. 11/23- pt not able to sleep in past 2 nights, dysphoric, upset. It does appear that clonazepam was not renew and felt off and she did not receive any wednesday night and Wednesday AM and qhs. This was not intentional. Plan was for pt to continue clonazepam, gabapentin. Renew clonazepam. we discussed increasing gabapentin to BID. she also has ambien. But do suspect poor sleep and dysphoric affect may be in part related to not having clonazepam. 11/24 start lithium 300mg po BID. pt reports taking higher dose of ambien at home- 10mg po qhs. continue gabapentin, wellbutrin and latuda. 11/25 d/c latuda- ? of increase restlessness with higher dose and also pt would like to try vraylar instead. d/c wellbutrin pt reports no efficacy. continue lithium- check level on Nov 3011/26 continue tx lithium increase to 600mg po BID 11/27 Continue to work on polypharmacy- pt on 2 benzodiazepines, off lyrica, continued on gabapentin, wellbutrin d/c per pt request, latuda d/c, pt now on vraylar, pt also on ambien. She is on lithium and lamictal. 11/28: continue current mgmt. asking for discharge post transfer to [facility] and increase in anxiety. variable reports of symptoms depending on context. conferred with nabor brock mgmt. Reason for continued inpatient stay Substantial Risk for: harm to self, inability to function and rapid decompensation Time Spent With Patient Time: Total time managing care of this patient today __35__ minutes.
[2022-11-28 21:10] VITALS: BP 127/90; PULSE 110; RESP 20; TEMP 36.4; O2SAT 97
[2022-11-28] MEDS: polyethylene glycoL 3350 17 GM POWD.PACK PO (21:54)
[2022-11-28] MEDS: Gabapentin 100 MG CAPSULE 200 MG PO (21:55)
[2022-11-28] MEDS: Prazosin HCL 1 MG CAPSULE 6 MG PO (21:56)
[2022-11-28] MEDS: Sennosides/Docusate Sodium TABLET 2 TAB PO (21:57)
[2022-11-28] MEDS: Zolpidem Tartrate 5 MG TABLET 10 MG PO (21:58)
[2022-11-28] MEDS: Acetaminophen 325 MG TABLET 650 MG PO (21:58)
[2022-11-29] MEDS: LORazepam 0.5 MG TABLET PO (06:15)
[2022-11-29] MEDS: Lithium Carbonate 300 MG CAPSULE 600 MG PO ×2 (09:18→21:04)
[2022-11-29] MEDS: Cariprazine HCl 1.5 MG CAPSULE PO (09:18)
[2022-11-29] MEDS: polyethylene glycoL 3350 17 GM POWD.PACK PO ×2 (09:18→21:04)
[2022-11-29] MEDS: Sennosides/Docusate Sodium TABLET 2 TAB PO ×2 (09:18→21:04)
[2022-11-29] MEDS: Gabapentin 600 MG TABLET PO (09:18)
[2022-11-29] MEDS: lamoTRIgine 100 MG TABLET 300 MG PO (09:18)
[2022-11-29] MEDS: clonazePAM 1 MG TABLET PO ×2 (09:18→21:04)
[2022-11-29 13:45] VITALS: BP 126/77; PULSE 99; TEMP 36.5; O2SAT 98
--- NOTE | 2022-11-29 15:18 | P.PNPSI_ITS ---
Subjective Subjective Date of Service: 11/29/22 Reason For Visit: Depression, si Interim History: calm, cooperative. apologizes for behavior yesterday, says she was just missing her daughter. spoke with her daughter on the phone. asks about leaving tomorrow, told we will stick with plan to discharge wednesday, as that is what marcos had devised as a plan. she disputes, saying marcos had said wednesday. reaffirms wednesday is the plan. labs ordered for wednesday. per staff, declined abdifatah and lidoderm patches. attending groups. no AVH. +ADLs. Mental Status Exam Mental Status Exam Narrative: Appearance:casually groomed, good hygiene, in NAD behavior:cooperative Psychomotor: no agitation or retardation noted Speech:clear, normal rate/rhythm/volume, spontaneous TP:linear TC: feeling better, discharge Mood: less anxious Affect: full range, normo-intense SI: none expressed HI: none expressed VH/AH: none expressed Insight/judgment:fair x 2. memory/cog: alert, oriented x 3. grossly intact to conversational testing. Diagnostics Vital Signs (24Hr): Vital Signs - 24 hr 11/28/22 21:10 11/29/22 13:45 Temperature 97.6 F 97.7 F Pulse Rate 110 H 99 Respiratory Rate 20 Blood Pressure 127/90 H 126/77 Pulse Oximetry 97 98 Oxygen Delivery Method Room Air Room Air BMI result Body Mass Index 38.8 Labs 11/16/22 13:57 11/18/22 07:23 Labs: Laboratory Results - last 48 hr 11/28/22 07:21 [place] 0.79 Medications Medications Current Medications Acetaminophen (Acetaminophen 325 Mg Tablet) 650 mg PO Q6H PRN PRN Reason: Headache/Pain Mild Scale (1-3) Last Admin: 11/28/22 21:58 Dose: 650 mg Al Hydroxide/Mg Hydroxide (Magnesium Hydrox/Alum Hydrox 30 Ml Oral.Susp) 30 ml PO Q6H PRN PRN Reason: Heartburn/Nausea Cariprazine (Cariprazine Hcl 1.5 Mg Capsule) 1.5 mg PO DAILY [facility] Last Admin: 11/29/22 09:18 Dose: 1.5 mg Clonazepam (Clonazepam 1 Mg Tablet) 1 mg PO BID MEET Last Admin: 11/29/22 09:18 Dose: 1 mg Gabapentin (Gabapentin 600 Mg Tablet) 600 mg PO DAILY [facility] Last Admin: 11/29/22 09:18 Dose: 600 mg Gabapentin (Gabapentin 100 Mg Capsule) 200 mg PO BEDTIME [facility] Last Admin: 11/28/22 21:55 Dose: 200 mg Hydroxyzine HCl (Hydroxyzine Hcl 25 Mg Tablet) 25 mg PO Q6H PRN PRN Reason: Anxiety Last Admin: 11/28/22 03:57 Dose: 25 mg Lamotrigine (Lamotrigine 100 Mg Tablet) 300 mg PO DAILY [facility] Last Admin: 11/29/22 09:18 Dose: 300 mg Lidocaine (Lidocaine 4 % Patch Adh..Patch) 1 patch TRANSDERMA DAILY [facility]; Protocol Last Admin: 11/29/22 09:21 Dose: Not Given [place] Carbonate ([place] Carbonate 300 Mg Capsule) 600 mg PO BID [facility] Last Admin: 11/29/22 09:18 Dose: 600 mg Lorazepam (Lorazepam 0.5 Mg Tablet) 0.5 mg PO DAILY PRN PRN Reason: Anxiety Last Admin: 11/29/22 06:15 Dose: 0.5 mg Magnesium Hydroxide (Milk Of Magnesia 30 Ml Oral.Susp) 30 ml PO DAILY PRN PRN Reason: Constipation Last Admin: 11/25/22 16:47 Dose: 30 ml Nicotine (Nicotine 21 Mg Patch.Td24) 21 mg TRANSDERMA DAILY [facility] Last Admin: 11/29/22 09:21 Dose: Not Given Nicotine Polacrilex (Nicotine Polacrilex Lozenge 4 Mg Lozenge) 4 mg BUCCAL Q2H PRN PRN Reason: Nicotine Cravings Last Admin: 11/28/22 14:55 Dose: 4 mg Polyethylene Glycol (Polyethylene Glycol 3350 17 Gm Powd.Pack) 17 gm PO BID [facility] Last Admin: 11/29/22 09:18 Dose: 17 gm Prazosin HCl (Prazosin Hcl 1 Mg Capsule) 6 mg PO BEDTIME [facility]; Protocol Last Admin: 11/28/22 21:56 Dose: 6 mg Senna/Docusate Sodium (Sennosides/Docusate Sodium Tablet) 2 tab PO BID [facility] Last Admin: 11/29/22 09:18 Dose: 2 tab Trazodone HCl (Trazodone Hcl 100 Mg Tablet) 100 mg PO BEDTIME PRN PRN Reason: Insomnia Zolpidem Tartrate (Zolpidem Tartrate 5 Mg Tablet) 10 mg PO BEDTIME MEET Last Admin: 11/28/22 21:58 Dose: 10 mg Allergies Allergies Allergy/AdvReac Type Severity Reaction Status Date / Time Penicillins Allergy Swelling Verified 08/06/22 11:05 Assessment & Plan Assessment & Plan (1) PTSD (post-traumatic stress disorder): Status: Acute Code(s): F43.10 - Post-traumatic stress disorder, unspecified (2) Bipolar disorder: Qualifiers: Active/Remission status: currently active Current bipolar episode type: depressed Current episode severity: moderate Qualified Code(s): F31.32 - Bipolar disorder, current episode depressed, moderate Status: Acute Code(s): F31.9 - Bipolar disorder, unspecified Plan Mrs. Glover is a 47 year-old woman with hx of PTSD, Bipolar Disorder who self presented [place] [facility] reporting increase depression,SI with plan to cut her wrist. We discussed risks, benefits and alternative treatment options. Pt's current medication regimen concern for polypharmacy. Pt is on both ativan and clonazepam, in addition to ambien. She is also on both gabapentin and lyrica. She reports gabapentin works for fibromyalgia but lyrica helps restless leg. She has not had sleep study- despite ongoing sleep disturbances which although related to her depression seem also worsened by underlying medical conditions such as RLS. I discussed with pt that I would like her to be on only one benzo either clonazepam or ativan but not both. She reports she does not think wellbutrin is working as it should. She states that previous admissions, there had been discussion of lithium. She is also on latuda which she finds beneficial. We discussed that she does seem to benefit from antidepressant. PLAN 11/19- dc seroquel due to RLS. continue all other meds but if RLS will dc lyrica, she is on gabapentin for fibromyalgia. 11/20 increase latuda to 80mg po dinner time. d/c lyrica. continue all other meds. continue working on polypharmacy. 11/23- pt not able to sleep in past 2 nights, dysphoric, upset. It does appear that clonazepam was not renew and felt off and she did not receive any wednesday night and Wednesday AM and qhs. This was not intentional. Plan was for pt to continue clonazepam, gabapentin. Renew clonazepam. we discussed increasing gabapentin to BID. she also has ambien. But do suspect poor sleep and dysphoric affect may be in part related to not having clonazepam. 11/24 start lithium 300mg po BID. pt reports taking higher dose of ambien at home- 10mg po qhs. continue gabapentin, wellbutrin and latuda. 11/25 d/c latuda- ? of increase restlessness with higher dose and also pt would like to try vraylar instead. d/c wellbutrin pt reports no efficacy. continue lithium- check level on Nov 3011/26 continue tx lithium increase to 600mg po BID 11/27 Continue to work on polypharmacy- pt on 2 benzodiazepines, off lyrica, continued on gabapentin, wellbutrin d/c per pt request, latuda d/c, pt now on vraylar, pt also on ambien. She is on lithium and lamictal. 11/28: continue current mgmt. asking for discharge post transfer to [facility] and increase in anxiety. variable reports of symptoms depending on context. conferred with nabor brock mgmt. 11/29: continue current mgmt. check labs wednesday morning and plan to DC wednesday. Reason for continued inpatient stay Substantial Risk for: harm to self, inability to function and rapid decompensation Time Spent With Patient Time: Total time managing care of this patient today ____ minutes.
[2022-11-29] MEDS: Nicotine Polacrilex Lozenge 4 MG LOZENGE BUCCAL (16:11)
[2022-11-29 19:17] VITALS: BP 142/72; PULSE 91; RESP 16; TEMP 36.6; O2SAT 98
[2022-11-29] MEDS: Gabapentin 100 MG CAPSULE 200 MG PO (21:04)
[2022-11-29] MEDS: Zolpidem Tartrate 5 MG TABLET 10 MG PO (21:04)
[2022-11-29] MEDS: Prazosin HCL 1 MG CAPSULE 6 MG PO (21:05)
[2022-11-30] MEDS: hydrOXYzine HCL 25 MG TABLET PO ×3 (02:14→22:24)
[2022-11-30] MEDS: traZODone HCL 100 MG TABLET PO (02:17)
[2022-11-30] MEDS: lamoTRIgine 100 MG TABLET 300 MG PO (08:11)
[2022-11-30] MEDS: Cariprazine HCl 1.5 MG CAPSULE PO (08:12)
[2022-11-30] MEDS: clonazePAM 1 MG TABLET PO ×2 (08:12→22:24)
[2022-11-30] MEDS: Lithium Carbonate 300 MG CAPSULE 600 MG PO ×2 (08:12→22:24)
[2022-11-30] MEDS: Sennosides/Docusate Sodium TABLET 2 TAB PO (08:12)
[2022-11-30] MEDS: Gabapentin 600 MG TABLET PO (08:12)
[2022-11-30 08:49] VITALS: BP 136/76; PULSE 88; TEMP 36.6; O2SAT 96
[2022-11-30] MEDS: LORazepam 0.5 MG TABLET PO (10:55)
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
[2022-11-30] MEDS: Acetaminophen 325 MG TABLET 650 MG PO (12:25)
[2022-11-30 19:54] VITALS: BP 155/71; PULSE 80; RESP 16; TEMP 36.2; O2SAT 98
[2022-11-30] MEDS: Prazosin HCL 1 MG CAPSULE 6 MG PO (22:23)
[2022-11-30] MEDS: Gabapentin 100 MG CAPSULE 200 MG PO (22:24)
[2022-11-30] MEDS: Zolpidem Tartrate 5 MG TABLET 10 MG PO (22:24)
[2022-12-01 08:42] VITALS: BP 117/60; PULSE 87; RESP 20; TEMP 36.7; O2SAT 95
[2022-12-01 09:00] LABS: MANUAL DIFF FLAG NO
[2022-12-01 09:04] LABS: Basophils Absolute Auto 0.1 X10*3/uL (0.0-0.2); Basophils Percent Auto 0.5 % (0-2); Eosinophils Absolute Auto 0.5 X10*3/uL (0.0-0.4); Eosinophils Percent Auto 4.9 % (0-4); Hematocrit 39.8 % (37.0-47.0); Hemoglobin 12.9 g/dl (12.0-16.0); Imm Gran Abs Auto 0.04 X10*3/uL (0.00-0.03); Imm Gran Pct Auto 0.4 % (0.0-0.4); Lymphocytes Absolute Auto 2.9 X10*3/uL (1.2-4.9); Lymphocytes Percent Auto 27.1 % (20-40); Mean Corpuscular HGB Conc 32.4 g/dl (31.0-35.0); Mean Corpuscular Hemoglobin 28.6 pg (27.0-33.0); Mean Corpuscular Volume 88.2 fL (80.0-98.0); Mean Platelet Volume 10.4 fL (9.4-12.3); Monocytes Absolute Auto 0.7 X10*3/uL (0.1-1.2); Monocytes Percent Auto 6.3 % (2-11); Neutrophils Absolute Auto 6.5 x10*3/uL (2.0-8.3); Neutrophils Percent Auto 60.8 % (45-73); Platelet Count 366 X10*3/uL (160-400); Red Blood Count 4.51 X10*6/uL (4.20-5.50); Red Cell Distribution Width 13.4 % (11.0-16.0); White Blood Count 10.7 X10*3/uL (4.8-10.8)
[2022-12-01 09:18] LABS: Lithium 0.83 mmol/L (0.60-1.20)
[2022-12-01 09:20] LABS: Anion Gap 11 (12-20); Blood Urea Nitrogen 8 mg/dL (9-16); Calcium 9.7 mg/dL (8.4-10.2); Carbon Dioxide 28 mmol/L (22-29); Chloride 102 mmol/L (96-108); Creatinine Clr Calc Pharmacy 97.9; Estimated Glomerular Filt Rate > 60; Glucose Random 100 mg/dL (60-115); Potassium 3.7 mmol/L (3.3-5.1); Sodium 137 mmol/L (135-145)
[2022-12-01] MEDS: LORazepam 0.5 MG TABLET PO (09:29)
[2022-12-01] MEDS: Gabapentin 600 MG TABLET PO (09:29)
[2022-12-01] MEDS: Cariprazine HCl 1.5 MG CAPSULE PO (09:29)
[2022-12-01] MEDS: Lithium Carbonate 300 MG CAPSULE 600 MG PO (09:30)
[2022-12-01] MEDS: lamoTRIgine 100 MG TABLET 300 MG PO (09:30)
[2022-12-01] MEDS: clonazePAM 1 MG TABLET PO (09:30)
== END 2022-12-01 10:55 | disposition home or self-care (01) | DRG 885 ==
LOC: HO.ED 13:27 → HO.PM5 11-17 13:18 → HO.PADLT16 11-27 15:21
PROVIDERS: Psychiatry & Neurology Psychiatry; Social Worker; Admitting Provider Psychiatry & Neurology Psychiatry; Emergency Provider Emergency Medicine; Visit Provider Psychiatry & Neurology Psychiatry
DX: F31.9 Bipolar disorder, unspecified (principal); R45.851 Suicidal ideations; F43.12 Post-traumatic stress disorder, chronic; F17.210 Nicotine dependence, cigarettes, uncomplicated; Z23 Encounter for immunization; Z71.6 Tobacco abuse counseling; Z20.822 Contact with and (suspected) exposure to COVID-19; Z79.899 Other long term (current) drug therapy
CPT/HCPCS: 36415; 80048; 80053; 80061; 80076; 80175; 80178; 80307; 81001; 81003; 81025; 85025; 87635; 90686; 93005; 99285; S9485

== ENCOUNTER → 2022-11-17 13:15 | Outpatient (BNV) | payer OTHER, SELFPAY | PROVIDERS: Admitting Provider Psychiatry & Neurology Psychiatry; Emergency Provider Emergency Medicine; Visit Provider Social Worker | DX: F31.32 Bipolar disorder, current episode depressed, moderate (principal); F43.11 Post-traumatic stress disorder, acute | CPT/HCPCS: 90792; 99231; 99232; 99239 ==

== ENCOUNTER 2023-05-25 12:40 | Inpatient (IN) | payer OTHER, SELFPAY ==
[2023-05-25 12:51] VITALS: BP 141/83; PULSE 94; RESP 18; TEMP 37.2; O2SAT 100; BMI 42.4
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
[2023-05-25 13:04] LABS: MANUAL DIFF FLAG NO
[2023-05-25 13:06] LABS: Basophils Absolute Auto 0.1 X10*3/uL (0.0-0.2); Basophils Percent Auto 0.4 % (0-2); Eosinophils Absolute Auto 0.4 X10*3/uL (0.0-0.4); Eosinophils Percent Auto 3.6 % (0-4); Hematocrit 40.8 % (37.0-47.0); Hemoglobin 13.2 g/dl (12.0-16.0); Imm Gran Abs Auto 0.04 X10*3/uL (0.00-0.03); Imm Gran Pct Auto 0.3 % (0.0-0.4); Lymphocytes Absolute Auto 2.3 X10*3/uL (1.2-4.9); Lymphocytes Percent Auto 19.5 % (20-40); Mean Corpuscular HGB Conc 32.4 g/dl (31.0-35.0); Mean Corpuscular Hemoglobin 28.6 pg (27.0-33.0); Mean Corpuscular Volume 88.5 fL (80.0-98.0); Mean Platelet Volume 9.6 fL (9.4-12.3); Monocytes Absolute Auto 0.6 X10*3/uL (0.1-1.2); Monocytes Percent Auto 5.5 % (2-11); Neutrophils Absolute Auto 8.3 x10*3/uL (2.0-8.3); Neutrophils Percent Auto 70.7 % (45-73); Platelet Count 362 X10*3/uL (160-400); Red Blood Count 4.61 X10*6/uL (4.20-5.50); Red Cell Distribution Width 14.6 % (11.0-16.0); White Blood Count 11.7 X10*3/uL (4.8-10.8)
[2023-05-25 13:20] LABS: COVID-19 Test Negative (Negative); IDNOW Serial# 152EDE1D
[2023-05-25 13:32] LABS: Alanine Aminotransferase 15 U/L (0-31); Albumin Level 4.2 g/dL (3.5-5.0); Alkaline Phosphatase 146 U/L (39-117); Anion Gap 12 (12-20); Aspartate Amino Transferase 15 U/L (5-31); Bilirubin Total 0.2 mg/dL (0.0-1.0); Blood Urea Nitrogen 16 mg/dL (9-16); Calcium 9.4 mg/dL (8.4-10.2); Carbon Dioxide 30 mmol/L (22-29); Chloride 103 mmol/L (96-108); Creatinine Clr Calc Pharmacy 91.8; Estimated Glomerular Filt Rate > 60; Ethanol < 10 mg/dL; Glucose Random 118 mg/dL (60-115); HCG Quantitative < 2 mIU/mL; Sodium 141 mmol/L (135-145); Total Protein 7.5 g/dL (6.5-8.0)
[2023-05-25 14:20] LABS: Amphetamine Screen Urine Not Detected (Not Detect); Barbiturates, Urine Not Detected (Not Detect); Benzodiazepines Screen Urine POSITIVE (Not Detect); Cannabinoid Screen Urine POSITIVE (Not Detect); Cocaine Screen Urine Not Detected (Not Detect); Fentanyl, urine Not Detected (Not Detect); Opiate Screen Urine Not Detected (Not Detect); Phencyclidine Screen Urine Not Detected (Not Detect)
[2023-05-25 14:24] LABS: Appearance Urine Cloudy; Color Urine Dark Yellow; Glucose Urine UA Negative (Negative); Leukocyte Esterase Urine Trace (Negative); Nitrite Urine Negative (Negative); PH 5.5 (5.0-9.0); Specific Gravity - Urine >= 1.030 (1.005-1.025); UMIC TRIGGER UACC YES; Urine Blood Negative (Negative); Urine Ketones Trace mg/dL (Negative); Urine Protein 30 (1+) mg/dL (Neg-Trace)
[2023-05-25 14:38] LABS: Bacteria Urine Trace (None Seen); Hyaline Casts Urine 0-2 /LPF (0-2); RBC Urine 0-2 /HPF (0-2); WBC Urine 0-5 /HPF (0-5)
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
[2023-05-25] MEDS: Acetaminophen 325 MG TABLET 975 MG PO (18:21)
[2023-05-25] MEDS: valACYclovir HCL 500 MG TABLET 1000 MG PO (18:21)
[2023-05-25 20:40] VITALS: BP 129/80; PULSE 80
[2023-05-25] MEDS: Prazosin HCL 1 MG CAPSULE 2 MG PO (20:45)
[2023-05-25] MEDS: Zolpidem Tartrate 5 MG TABLET 10 MG PO (20:45)
[2023-05-25] MEDS: QUEtiapine Fumarate 200 MG TABLET PO (20:45)
[2023-05-25] MEDS: clonazePAM 1 MG TABLET PO (20:45)
[2023-05-25] MEDS: Gabapentin 300 MG CAPSULE PO (20:45)
[2023-05-25] MEDS: Pregabalin 100 MG CAPSULE PO (21:04)
[2023-05-26 04:32] VITALS: RESP 16
--- NOTE | 2023-05-26 06:25 | PC.NURSE ---
Patient slept through the night, no distress observed/reported, medication compliant, no behavior issues, disposition per care team is Section 12 inpatient bed search, VSS, will continue to monitor
--- NOTE | 2023-05-26 08:00 | ECG_ITS ---
Test Reason : monitor medication Blood Pressure : / mmHG Vent. Rate : 079 BPM Atrial Rate : 079 BPM P-R Int : 166 ms QRS Dur : 082 ms QT Int : 402 ms P-R-T Axes : 061 049 048 degrees QTc Int : 460 ms Normal sinus rhythm Normal ECG When compared with ECG of 17-NOV-2022 09:01, QT has lengthened Referred By: Matthew Cruz Electronically Signed By:Bridger Gale
[2023-05-26 08:34] VITALS: BP 109/77; PULSE 103; RESP 13; TEMP 37.1; O2SAT 96
[2023-05-26] MEDS: Gabapentin 300 MG CAPSULE PO ×2 (09:33→20:51)
[2023-05-26] MEDS: Venlafaxine HCl ER 150 MG CAP.ER.24H PO (09:33)
[2023-05-26] MEDS: clonazePAM 1 MG TABLET PO ×2 (09:33→20:51)
[2023-05-26] MEDS: valACYclovir HCL 1,000 MG TABLET 1000 MG PO ×2 (09:33→20:51)
[2023-05-26] MEDS: Gabapentin 100 MG CAPSULE PO (09:33)
[2023-05-26] MEDS: Nicotine Polacrilex Lozenge 4 MG LOZENGE BUCCAL ×2 (09:47→19:52)
[2023-05-26 14:03] VITALS: BP 137/72; PULSE 81; RESP 20; TEMP 36.2; O2SAT 96
[2023-05-26 14:41] VITALS: BMI 42.0
[2023-05-26] MEDS: hydrOXYzine HCL 25 MG TABLET PO (14:45)
--- NOTE | 2023-05-26 15:57 | PC.ADMIT ---
Pt is a 47 y/o hungarian speaking female admitted on a CV. Pt was admitted for increased depression and SI. Pts increased stressors are r/t ex husbands suicide 1 year ago, grandfathers recent passing and brothers suicide in 2019. Pt also lives with her in-laws and she reports they speak negative about her. Pt was A&O X3, calm and cooperative. Mood is depressed with a congruent affect. Pt reporting I just lay in bed for the past two weeks , I have no desire to move or eat. . Pt denied AH, but report occasionally seeing shadows. Pt says she is also suspicious at times, believing others are talking about her even though she hasn't heard them do so. Thought process was linear. Pt reports she has no plan or ideation to harm herself on the unit. Rima reports that she felt good after discharging from the unit about a year ago, but it gave her psoriasis and had to stop it. She says since then shes been sliding backwards. Pts tox screen was positive for THC and benzodiazepines, but pt is prescribed Klonopin. Pt reports a poor appetite, but denies having any wt lose. Pt reports frequent awaking from nightmares . She says the prazosin she takes is helpful. Pt has no acute medical conditions except the small rash under her chin that was noted in the ED. She reports this started 4 days ago. Pts crisis assessment says she has community services with [employer] and the pt confirmed this. Pt placed on 15 minute safety checks.
[2023-05-26 19:40] VITALS: BP 132/73; PULSE 77; RESP 16; TEMP 36.3; O2SAT 95
[2023-05-26] MEDS: Acetaminophen 325 MG TABLET 650 MG PO (19:53)
[2023-05-26] MEDS: QUEtiapine Fumarate 200 MG TABLET PO (20:51)
[2023-05-26] MEDS: Prazosin HCL 1 MG CAPSULE 2 MG PO (20:51)
[2023-05-26] MEDS: Pregabalin 100 MG CAPSULE PO (20:51)
[2023-05-26] MEDS: Zolpidem Tartrate 5 MG TABLET 10 MG PO (20:51)
[2023-05-27 06:00] VITALS: BP 115/61; PULSE 65; RESP 20; O2SAT 98
[2023-05-27 07:00] VITALS: BMI 41.9
[2023-05-27] MEDS: valACYclovir HCL 1,000 MG TABLET 1000 MG PO ×2 (08:26→21:36)
[2023-05-27] MEDS: Venlafaxine HCl ER 150 MG CAP.ER.24H PO (08:26)
[2023-05-27] MEDS: clonazePAM 1 MG TABLET PO ×2 (08:26→21:37)
[2023-05-27] MEDS: Gabapentin 100 MG CAPSULE PO (08:26)
[2023-05-27] MEDS: Gabapentin 300 MG CAPSULE PO ×2 (08:27→21:36)
[2023-05-27 08:39] LABS: Alanine Aminotransferase 17 U/L (0-31); Albumin Level 3.7 g/dL (3.5-5.0); Alkaline Phosphatase 131 U/L (39-117); Anion Gap 12 (12-20); Aspartate Amino Transferase 16 U/L (5-31); Bilirubin Total 0.3 mg/dL (0.0-1.0); Blood Urea Nitrogen 14 mg/dL (9-16); Calcium 9.1 mg/dL (8.4-10.2); Carbon Dioxide 29 mmol/L (22-29); Chloride 104 mmol/L (96-108); Cholesterol 223 mg/dL (<200); Creatinine Clr Calc Pharmacy 81.4; Estimated Glomerular Filt Rate > 60; Glucose Fasting 83 mg/dL (60-99); HDL Cholesterol 50 mg/dL (>40); LDL Cholesterol Calculated 150 mg/dL (<100); Sodium 141 mmol/L (135-145); Total Protein 6.5 g/dL (6.5-8.0); Triglycerides 119 mg/dL (<150)
[2023-05-27] MEDS: Acetaminophen 325 MG TABLET 650 MG PO ×2 (08:41→19:00)
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
[2023-05-27] MEDS: Nicotine 21 MG PATCH.TD24 TRANSDERMA (11:15)
[2023-05-27] MEDS: Nicotine Polacrilex Lozenge 4 MG LOZENGE BUCCAL ×2 (11:16→18:35)
[2023-05-27] MEDS: lamoTRIgine 100 MG TABLET 300 MG PO (11:53)
[2023-05-27] MEDS: Lurasidone HCl 20 MG TABLET PO (11:54)
[2023-05-27] MEDS: hydrOXYzine HCL 25 MG TABLET PO (14:27)
[2023-05-27 20:20] VITALS: BP 123/88; PULSE 72; RESP 16; TEMP 36.7; O2SAT 98
[2023-05-27] MEDS: Prazosin HCL 5 MG, Prazosin HCL 1 MG 6 MG PO (21:35)
[2023-05-27] MEDS: QUEtiapine Fumarate 200 MG TABLET PO (21:35)
[2023-05-27] MEDS: Pregabalin 100 MG CAPSULE PO (21:37)
[2023-05-27] MEDS: Zolpidem Tartrate 5 MG TABLET 10 MG PO (21:42)
[2023-05-28 06:00] VITALS: BP 130/60; PULSE 85; RESP 18; TEMP 37; O2SAT 96
--- NOTE | 2023-05-28 09:01 | P.PNPSI_ITS ---
Subjective Subjective Date of Service: 05/28/23 Reason For Visit: Crisis Subjective Notes: Conditional Voluntary Interim History: Active on unit, social with peers. Pt reports feeling a little bit better than before ; pt stated, at least I'm out of bed here compared to being at home . Pt is requesting to have Latuda switched to bedtime. denies SI/HI/VH/AH. Medication Compliance: Yes Side effects from medications: No Attending Groups: Yes Review of Systems Constitutional: Reports as per HPI Eyes: Reports as per HPI Reports as per HPI Cardiovascular: Reports as per HPI Respiratory: Reports as per HPI Gastrointestinal: Reports as per HPI Musculoskeletal: Reports as per HPI Skin/Breast: Reports as per HPI Reports as per HPI Psychiatric: Reports as per HPI Endocrine: Reports as per HPI Hematologic/Lymphatic: Reports as per HPI Allergic/Immunologic: Reports as per HPI Mental Status Exam Mental Status Exam Narrative: Pt is alert and oriented; behavior is cooperative and calm; dressed in casual attire; mood is described as depressed ; eye contact appropriate; Speech is normal rate, volume and prosody and not pressured; thought process is organized and goal directed; Thought content is on tx; denies SI/HI/VH/AH. Diagnostics Vital Signs (24Hr): Vital Signs - 24 hr 05/27/23 20:20 05/28/23 06:00 Temperature 98.0 F 98.6 F Pulse Rate 72 85 Respiratory Rate 16 18 Blood Pressure 123/88 130/60 Pulse Oximetry 98 96 Oxygen Delivery Method Room Air Room Air BMI result Body Mass Index 41.9 Labs 05/25/23 12:59 05/27/23 08:15 Labs: Laboratory Results - last 48 hr 05/27/23 08:15 Sodium 141 Potassium 4.0 Chloride 104 Carbon Dioxide 29 Anion Gap 12 BUN 14 Creatinine 0.92 Estim Creat Clear Calc 81.4 Estimated GFR > 60 Fasting Glucose 83 Calcium 9.1 Total Bilirubin 0.3 AST 16 ALT 17 Alkaline Phosphatase 131 H Total Protein 6.5 Albumin 3.7 Triglycerides 119 Cholesterol 223 H LDL Cholesterol, Calc 150 H HDL Cholesterol 50 Medications Medications Current Medications Acetaminophen (Acetaminophen 325 Mg Tablet) 650 mg PO Q4H PRN PRN Reason: Pain, Mild (Pain Scale 1-3) Last Admin: 05/27/23 19:00 Dose: 650 mg Al Hydroxide/Mg Hydroxide (Magnesium Hydrox/Alum Hydrox 30 Ml Oral.Susp) 30 ml PO Q6H PRN PRN Reason: Heartburn/Nausea Clonazepam (Clonazepam 1 Mg Tablet) 1 mg PO BID [facility] Last Admin: 05/27/23 21:37 Dose: 1 mg Gabapentin (Gabapentin 400 Mg Capsule) 400 mg PO DAILY [facility] Gabapentin (Gabapentin 300 Mg Capsule) 300 mg PO BEDTIME [facility] Last Admin: 05/27/23 21:36 Dose: 300 mg Hydroxyzine HCl (Hydroxyzine Hcl 25 Mg Tablet) 25 mg PO Q6H PRN PRN Reason: Anxiety Last Admin: 05/27/23 14:27 Dose: 25 mg Lamotrigine (Lamotrigine 100 Mg Tablet) 300 mg PO DAILY [facility] Last Admin: 05/27/23 11:53 Dose: 300 mg Lurasidone HCl (Lurasidone Hcl 20 Mg Tablet) 20 mg PO DAILY [facility] Last Admin: 05/27/23 11:54 Dose: 20 mg Magnesium Hydroxide (Milk Of Magnesia 30 Ml Oral.Susp) 30 ml PO DAILY PRN PRN Reason: Constipation Nicotine (Nicotine 21 Mg Patch.Td24) 21 mg TRANSDERMA DAILY [facility] Last Admin: 05/27/23 11:15 Dose: 21 mg Nicotine Polacrilex (Nicotine Polacrilex Lozenge 4 Mg Lozenge) 4 mg BUCCAL Q2H PRN PRN Reason: Nicotine Cravings Last Admin: 05/27/23 18:35 Dose: 4 mg Prazosin HCl 5 mg/ Prazosin (HCl 1 mg) 6 mg PO BEDTIME [facility] Last Admin: 05/27/23 21:35 Dose: 6 mg Pregabalin (Pregabalin 100 Mg Capsule) 100 mg PO BEDTIME [facility] Last Admin: 05/27/23 21:37 Dose: 100 mg Quetiapine Fumarate (Quetiapine Fumarate 200 Mg Tablet) 200 mg PO BEDTIME [facility] Last Admin: 05/27/23 21:35 Dose: 200 mg Valacyclovir HCl (Valacyclovir Hcl 1,000 Mg Tablet) 1,000 mg PO Q12H [facility] Last Admin: 05/27/23 21:36 Dose: 1,000 mg Venlafaxine HCl (Venlafaxine Hcl Er 75 Mg Cap.Er.24h) 75 mg PO DAILY [facility] Zolpidem Tartrate (Zolpidem Tartrate 5 Mg Tablet) 10 mg PO BEDTIME PRN PRN Reason: Insomnia Last Admin: 05/27/23 21:42 Dose: 10 mg Allergies Allergies Allergy/AdvReac Type Severity Reaction Status Date / Time Penicillins Allergy Swelling Verified 08/06/22 11:05 Assessment & Plan Assessment & Plan (1) Bipolar disorder: Qualifiers: Active/Remission status: currently active Current bipolar episode type: depressed Current episode severity: moderate Qualified Code(s): F31.32 - Bipolar disorder, current episode depressed, moderate Status: Acute Code(s): F31.9 - Bipolar disorder, unspecified (2) PTSD (post-traumatic stress disorder): Status: Acute Code(s): F43.10 - Post-traumatic stress disorder, unspecified (3) Complicated grieving: Status: Acute Code(s): F43.21 - Adjustment disorder with depressed mood Plan Patient is a 47 year old female with hx of Bipolar d/o and PTSD who self presented to ER d/t suicidal ideation secondary to increased depression since it is the anniversary of her ex- passing. Plan: CV 15 minute safety checks Continue home medications Decrease venlafaxine to 75mg PO daily Start: latuda 20mg PO daily obtain collateral discharge planning 05/27: Active on unit, social with peers. Pt reports feeling a little bit better than before ; pt stated, at least I'm out of bed here compared to being at home . Pt is requesting to have Latuda switched to bedtime. denies SI/HI/VH/AH. continue current tx plan. Patient educated on: diagnosis, medication risk/benefits and therapeutic strategies Informed Consent: understands Reason for continued inpatient stay Substantial Risk for: med/psych decompensation Time Spent With Patient Time: Total time managing care of this patient today _20___ minutes.
[2023-05-28] MEDS: valACYclovir HCL 1,000 MG TABLET 1000 MG PO ×2 (09:17→22:29)
[2023-05-28] MEDS: Venlafaxine HCl ER 75 MG CAP.ER.24H PO (09:18)
[2023-05-28] MEDS: lamoTRIgine 100 MG TABLET 300 MG PO (09:18)
[2023-05-28] MEDS: Gabapentin 400 MG CAPSULE PO (09:18)
[2023-05-28] MEDS: clonazePAM 1 MG TABLET PO ×2 (09:19→22:29)
[2023-05-28] MEDS: Lurasidone HCl 20 MG TABLET PO (09:22)
[2023-05-28] MEDS: Nicotine 21 MG PATCH.TD24 TRANSDERMA (09:22)
[2023-05-28] MEDS: SUMAtriptan succinate 25 MG TABLET PO (10:21)
[2023-05-28] MEDS: Nicotine Polacrilex Lozenge 4 MG LOZENGE BUCCAL ×3 (10:31→19:37)
[2023-05-28] MEDS: hydrOXYzine HCL 25 MG TABLET PO (17:26)
[2023-05-28 19:57] VITALS: BP 137/83; PULSE 78; RESP 16; TEMP 36.8; O2SAT 98
[2023-05-28 22:25] VITALS: BP 131/83; PULSE 74
[2023-05-28] MEDS: Gabapentin 300 MG CAPSULE PO (22:29)
[2023-05-28] MEDS: QUEtiapine Fumarate 200 MG TABLET PO (22:29)
[2023-05-28] MEDS: Pregabalin 100 MG CAPSULE PO (22:29)
[2023-05-28] MEDS: Zolpidem Tartrate 5 MG TABLET 10 MG PO (22:29)
[2023-05-28] MEDS: Prazosin HCL 5 MG, Prazosin HCL 1 MG 6 MG PO (22:34)
[2023-05-29] MEDS: hydrOXYzine HCL 25 MG TABLET PO ×2 (00:48→14:38)
[2023-05-29] MEDS: Melatonin 3 MG TABLET 6 MG PO ×2 (01:01→21:51)
[2023-05-29 09:08] VITALS: BP 123/72; PULSE 98; RESP 16; TEMP 36.9; O2SAT 96
[2023-05-29] MEDS: Gabapentin 400 MG CAPSULE PO (09:08)
[2023-05-29] MEDS: valACYclovir HCL 1,000 MG TABLET 1000 MG PO ×2 (09:08→21:51)
[2023-05-29] MEDS: clonazePAM 1 MG TABLET PO ×2 (09:09→21:52)
[2023-05-29] MEDS: lamoTRIgine 100 MG TABLET 300 MG PO (09:10)
[2023-05-29] MEDS: Venlafaxine HCl ER 75 MG CAP.ER.24H PO (09:10)
[2023-05-29] MEDS: Nicotine 21 MG PATCH.TD24 TRANSDERMA (09:11)
--- NOTE | 2023-05-29 13:47 | P.PNPSI_ITS ---
Subjective Subjective Date of Service: 05/29/23 Reason For Visit: Crisis Subjective Notes: Conditional Voluntary Interim History: The nursing staff reported the patient had been compliant with medications she reported that she was anxious and depressed. She was triggered on the group yesterday and she slept poorly. She slept between 5-6 hours. On interview the patient reports that she is feeling much better and she requested melatonin at night. No changes in her mental status she was not participating any groups in the morning. Mental Status Exam Mental Status Exam Patient Appearance: Well Grooomed Patient Orientation: Person and Situation Level of Consciousness: Awake and Appropriate Patient Behavior: Passive Mood Description: Calm Affect Description: Constricted Patient Cognition Impaired: Yes Ability to Follow Directions: Good Speech Pattern: Clear Hallucinations: None Delusions: Not Present Thought Process: Linear and Evasive Thought Content: positive for [place] and positive for Poverty of Content Judgement: Fair Diagnostics Vital Signs (24Hr): Vital Signs - 24 hr 05/28/23 19:57 05/28/23 22:25 05/29/23 09:08 Temperature 98.3 F 98.4 F Pulse Rate 78 74 98 Respiratory Rate 16 16 Blood Pressure 137/83 131/83 123/72 Pulse Oximetry 98 96 Oxygen Delivery Method Room Air Room Air BMI result Body Mass Index 41.9 Labs 05/25/23 12:59 05/27/23 08:15 Medications Medications Current Medications Acetaminophen (Acetaminophen 325 Mg Tablet) 650 mg PO Q4H PRN PRN Reason: Pain, Mild (Pain Scale 1-3) Last Admin: 05/27/23 19:00 Dose: 650 mg Al Hydroxide/Mg Hydroxide (Magnesium Hydrox/Alum Hydrox 30 Ml Oral.Susp) 30 ml PO Q6H PRN PRN Reason: Heartburn/Nausea Clonazepam (Clonazepam 1 Mg Tablet) 1 mg PO BID [facility] Last Admin: 05/29/23 09:09 Dose: 1 mg Gabapentin (Gabapentin 400 Mg Capsule) 400 mg PO DAILY [facility] Last Admin: 05/29/23 09:08 Dose: 400 mg Gabapentin (Gabapentin 300 Mg Capsule) 300 mg PO BEDTIME [facility] Last Admin: 05/28/23 22:29 Dose: 300 mg Hydroxyzine HCl (Hydroxyzine Hcl 25 Mg Tablet) 25 mg PO Q6H PRN PRN Reason: Anxiety Last Admin: 05/29/23 00:48 Dose: 25 mg Lamotrigine (Lamotrigine 100 Mg Tablet) 300 mg PO DAILY [facility] Last Admin: 05/29/23 09:10 Dose: 300 mg Lurasidone HCl (Lurasidone Hcl 20 Mg Tablet) 20 mg PO BEDTIME [facility] Magnesium Hydroxide (Milk Of Magnesia 30 Ml Oral.Susp) 30 ml PO DAILY PRN PRN Reason: Constipation Melatonin (Melatonin 3 Mg Tablet) 6 mg PO BEDTIME PRN PRN Reason: Insomnia Last Admin: 05/29/23 01:01 Dose: 6 mg Nicotine (Nicotine 21 Mg Patch.Td24) 21 mg TRANSDERMA DAILY [facility] Last Admin: 05/29/23 09:11 Dose: 21 mg Nicotine Polacrilex (Nicotine Polacrilex Lozenge 4 Mg Lozenge) 4 mg BUCCAL Q2H PRN PRN Reason: Nicotine Cravings Last Admin: 05/28/23 19:37 Dose: 4 mg Prazosin HCl 5 mg/ Prazosin (HCl 1 mg) 6 mg PO BEDTIME [facility] Last Admin: 05/28/23 22:34 Dose: 6 mg Pregabalin (Pregabalin 100 Mg Capsule) 100 mg PO BEDTIME [facility] Last Admin: 05/28/23 22:29 Dose: 100 mg Quetiapine Fumarate (Quetiapine Fumarate 200 Mg Tablet) 200 mg PO BEDTIME [facility] Last Admin: 05/28/23 22:29 Dose: 200 mg Valacyclovir HCl (Valacyclovir Hcl 1,000 Mg Tablet) 1,000 mg PO Q12H [facility] Last Admin: 05/29/23 09:08 Dose: 1,000 mg Venlafaxine HCl (Venlafaxine Hcl Er 75 Mg Cap.Er.24h) 75 mg PO DAILY [facility] Last Admin: 05/29/23 09:10 Dose: 75 mg Zolpidem Tartrate (Zolpidem Tartrate 5 Mg Tablet) 10 mg PO BEDTIME PRN PRN Reason: Insomnia Last Admin: 05/28/23 22:29 Dose: 10 mg Allergies Allergies Allergy/AdvReac Type Severity Reaction Status Date / Time Penicillins Allergy Swelling Verified 08/06/22 11:05 Assessment & Plan Assessment & Plan (1) Bipolar disorder: Qualifiers: Active/Remission status: currently active Current bipolar episode type: depressed Current episode severity: moderate Qualified Code(s): F31.32 - Bipolar disorder, current episode depressed, moderate Status: Acute Code(s): F31.9 - Bipolar disorder, unspecified (2) PTSD (post-traumatic stress disorder): Status: Acute Code(s): F43.10 - Post-traumatic stress disorder, unspecified (3) Complicated grieving: Status: Acute Code(s): F43.21 - Adjustment disorder with depressed mood Plan Patient is a 47 year old female with hx of Bipolar d/o and PTSD who self presented to ER d/t suicidal ideation secondary to increased depression since it is the anniversary of her ex- passing. Plan: CV 15 minute safety checks Continue home medications Decrease venlafaxine to 75mg PO daily Start: latuda 20mg PO daily obtain collateral discharge planning 05/27: Active on unit, social with peers. Pt reports feeling a little bit better than before ; pt stated, at least I'm out of bed here compared to being at home . Pt is requesting to have Latuda switched to bedtime. denies SI/HI/VH/AH. continue current tx plan. On May 28, the patient reports no changes in her mental status she agreed to start melatonin at night. Reason for continued inpatient stay Substantial Risk for: inability to function, rapid decompensation and med/psych decompensation Time Spent With Patient Time: Total time managing care of this patient today ____ minutes.
[2023-05-29] MEDS: Nicotine Polacrilex Lozenge 4 MG LOZENGE BUCCAL ×2 (17:33→21:58)
[2023-05-29 21:48] VITALS: BP 142/86; PULSE 88; RESP 18; TEMP 36.6; O2SAT 98
[2023-05-29] MEDS: QUEtiapine Fumarate 200 MG TABLET PO (21:51)
[2023-05-29] MEDS: Zolpidem Tartrate 5 MG TABLET 10 MG PO (21:51)
[2023-05-29] MEDS: Pregabalin 100 MG CAPSULE PO (21:51)
[2023-05-29] MEDS: Lurasidone HCl 20 MG TABLET PO (21:51)
[2023-05-29] MEDS: Gabapentin 300 MG CAPSULE PO (21:52)
[2023-05-29] MEDS: Prazosin HCL 5 MG, Prazosin HCL 1 MG 6 MG PO (21:57)
[2023-05-30 07:10] VITALS: BP 105/59; PULSE 87; RESP 12; TEMP 37.2; O2SAT 95
[2023-05-30] MEDS: lamoTRIgine 100 MG TABLET 300 MG PO (08:56)
[2023-05-30] MEDS: valACYclovir HCL 1,000 MG TABLET 1000 MG PO ×2 (08:57→21:39)
[2023-05-30] MEDS: Gabapentin 400 MG CAPSULE PO (08:57)
[2023-05-30] MEDS: Venlafaxine HCl ER 75 MG CAP.ER.24H PO (08:57)
[2023-05-30] MEDS: clonazePAM 1 MG TABLET PO ×2 (08:58→21:35)
[2023-05-30] MEDS: Nicotine 21 MG PATCH.TD24 TRANSDERMA (08:59)
[2023-05-30] MEDS: Nicotine Polacrilex Lozenge 4 MG LOZENGE BUCCAL ×3 (12:42→22:07)
--- NOTE | 2023-05-30 12:44 | HO.PSYCHPN ---
Subjective Subjective Date of Service: 05/30/23 Reason For Visit: Crisis Subjective Notes: Conditional Voluntary Interim History: Nursing staff reported the patient had been in bed most of the day, no changes in her mental status. She reports anxiety and depression. On interview the patient reports that she is sleeping poorly and requested increase of melatonin. Mental Status Exam Mental Status Exam Patient Appearance: Well Grooomed Patient Orientation: Person Level of Consciousness: Awake Patient Behavior: Passive Mood Description: Calm Affect Description: Constricted Patient Cognition Impaired: Yes Ability to Follow Directions: Good Speech Pattern: Clear Hallucinations: None Delusions: Not Present Thought Process: Distracted and Evasive Thought Content: positive for [place] and positive for Circumstantial Judgement: Fair Diagnostics Vital Signs (24Hr): Vital Signs - 24 hr 05/29/23 21:48 05/30/23 07:10 Temperature 97.8 F 98.9 F Pulse Rate 88 87 Respiratory Rate 18 12 Blood Pressure 142/86 H 105/59 L Pulse Oximetry 98 95 Oxygen Delivery Method Room Air Room Air BMI result Body Mass Index 41.9 Labs 05/25/23 12:59 05/27/23 08:15 Medications Medications Current Medications Acetaminophen (Acetaminophen 325 Mg Tablet) 650 mg PO Q4H PRN PRN Reason: Pain, Mild (Pain Scale 1-3) Last Admin: 05/27/23 19:00 Dose: 650 mg Al Hydroxide/Mg Hydroxide (Magnesium Hydrox/Alum Hydrox 30 Ml Oral.Susp) 30 ml PO Q6H PRN PRN Reason: Heartburn/Nausea Clonazepam (Clonazepam 1 Mg Tablet) 1 mg PO BID [facility] Last Admin: 05/30/23 08:58 Dose: 1 mg Gabapentin (Gabapentin 400 Mg Capsule) 400 mg PO DAILY [facility] Last Admin: 05/30/23 08:57 Dose: 400 mg Gabapentin (Gabapentin 300 Mg Capsule) 300 mg PO BEDTIME [facility] Last Admin: 05/29/23 21:52 Dose: 300 mg Hydroxyzine HCl (Hydroxyzine Hcl 25 Mg Tablet) 25 mg PO Q6H PRN PRN Reason: Anxiety Last Admin: 05/29/23 14:38 Dose: 25 mg Lamotrigine (Lamotrigine 100 Mg Tablet) 300 mg PO DAILY [facility] Last Admin: 05/30/23 08:56 Dose: 300 mg Lurasidone HCl (Lurasidone Hcl 20 Mg Tablet) 20 mg PO BEDTIME [facility] Last Admin: 05/29/23 21:51 Dose: 20 mg Magnesium Hydroxide (Milk Of Magnesia 30 Ml Oral.Susp) 30 ml PO DAILY PRN PRN Reason: Constipation Melatonin (Melatonin 3 Mg Tablet) 6 mg PO BEDTIME PRN PRN Reason: Insomnia Last Admin: 05/29/23 21:51 Dose: 6 mg Nicotine (Nicotine 21 Mg Patch.Td24) 21 mg TRANSDERMA DAILY [facility] Last Admin: 05/30/23 08:59 Dose: 21 mg Nicotine Polacrilex (Nicotine Polacrilex Lozenge 4 Mg Lozenge) 4 mg BUCCAL Q2H PRN PRN Reason: Nicotine Cravings Last Admin: 05/30/23 12:42 Dose: 4 mg Prazosin HCl 5 mg/ Prazosin (HCl 1 mg) 6 mg PO BEDTIME [facility] Last Admin: 05/29/23 21:57 Dose: 6 mg Pregabalin (Pregabalin 100 Mg Capsule) 100 mg PO BEDTIME [facility] Last Admin: 05/29/23 21:51 Dose: 100 mg Quetiapine Fumarate (Quetiapine Fumarate 200 Mg Tablet) 200 mg PO BEDTIME [facility] Last Admin: 05/29/23 21:51 Dose: 200 mg Valacyclovir HCl (Valacyclovir Hcl 1,000 Mg Tablet) 1,000 mg PO Q12H [facility] Last Admin: 05/30/23 08:57 Dose: 1,000 mg Venlafaxine HCl (Venlafaxine Hcl Er 75 Mg Cap.Er.24h) 75 mg PO DAILY [facility] Last Admin: 05/30/23 08:57 Dose: 75 mg Zolpidem Tartrate (Zolpidem Tartrate 5 Mg Tablet) 10 mg PO BEDTIME PRN PRN Reason: Insomnia Last Admin: 05/29/23 21:51 Dose: 10 mg Allergies Allergies Allergy/AdvReac Type Severity Reaction Status Date / Time Penicillins Allergy Swelling Verified 08/06/22 11:05 Assessment & Plan Assessment & Plan (1) Bipolar disorder: Qualifiers: Active/Remission status: currently active Current bipolar episode type: depressed Current episode severity: moderate Qualified Code(s): F31.32 - Bipolar disorder, current episode depressed, moderate Status: Acute Code(s): F31.9 - Bipolar disorder, unspecified (2) PTSD (post-traumatic stress disorder): Status: Acute Code(s): F43.10 - Post-traumatic stress disorder, unspecified (3) Complicated grieving: Status: Acute Code(s): F43.21 - Adjustment disorder with depressed mood Plan Patient is a 47 year old female with hx of Bipolar d/o and PTSD who self presented to ER d/t suicidal ideation secondary to increased depression since it is the anniversary of her ex- passing. Plan: CV 15 minute safety checks Continue home medications Decrease venlafaxine to 75mg PO daily Start: latuda 20mg PO daily obtain collateral discharge planning 05/27: Active on unit, social with peers. Pt reports feeling a little bit better than before ; pt stated, at least I'm out of bed here compared to being at home . Pt is requesting to have Latuda switched to bedtime. denies SI/HI/VH/AH. continue current tx plan. On May 28, the patient reports no changes in her mental status she agreed to start melatonin at night. On May 29 we increased melatonin up to 9 mg p.o. q.h.s.. Reason for continued inpatient stay Substantial Risk for: inability to function, rapid decompensation and med/psych decompensation Time Spent With Patient Time: Total time managing care of this patient today ____ minutes.
--- NOTE | 2023-05-30 16:44 | PC.NURSE ---
Pt reporting increased anxiety and depression related to holiday and loss of loved ones, including . Requesting PRN medication for anxiety. Provider unwilling to order additional medication at this time. Pt refused PRN 25mg Atarax. It doesn't do anything for me. Pt presents as tearful, withdrawn to room, and endorsing SI. She denies having plan at this time, but was unable to contract for safety and shook her head no when asked if she'd be able to tell staff if she does develop a plan. Safety checks increased to 5 minutes at this time.
[2023-05-30] MEDS: QUEtiapine Fumarate 200 MG TABLET PO ×2 (18:35→21:34)
--- NOTE | 2023-05-30 18:37 | PC.NURSE ---
At approximately 1800, patient was observed to be attempting to barricade herself in her bathroom and banging the back of her head against the wall. RN and [facility] were able to open door. Patient stated, just leave me alone! However, patient eventually agreed to move to her bed. Dr. Aguilar contacted. Patient placed on 1:1 observation. Telephone order for Seroquel 200mg PO ONCE NOW also ordered. Patient was hesitant to taking medication, but eventually agreed. Nursing to continue to monitor.
[2023-05-30 19:35] VITALS: BP 148/82; PULSE 90; RESP 16; TEMP 36.6; O2SAT 97
[2023-05-30] MEDS: Pregabalin 100 MG CAPSULE PO (21:33)
[2023-05-30] MEDS: Prazosin HCL 5 MG, Prazosin HCL 1 MG 6 MG PO (21:35)
[2023-05-30] MEDS: Lurasidone HCl 20 MG TABLET PO (21:35)
[2023-05-30] MEDS: Gabapentin 300 MG CAPSULE PO (21:36)
[2023-05-30] MEDS: Zolpidem Tartrate 5 MG TABLET 10 MG PO (21:50)
[2023-05-30] MEDS: Melatonin 3 MG TABLET 9 MG PO (22:08)
[2023-05-31 07:25] VITALS: BP 118/65; PULSE 95; RESP 16; TEMP 36.5; O2SAT 97
[2023-05-31] MEDS: Nicotine 21 MG PATCH.TD24 TRANSDERMA (08:24)
[2023-05-31] MEDS: lamoTRIgine 100 MG TABLET 300 MG PO (08:24)
[2023-05-31] MEDS: Gabapentin 400 MG CAPSULE PO (08:25)
[2023-05-31] MEDS: Venlafaxine HCl ER 75 MG CAP.ER.24H PO (08:25)
[2023-05-31] MEDS: valACYclovir HCL 1,000 MG TABLET 1000 MG PO ×2 (08:25→21:33)
[2023-05-31] MEDS: clonazePAM 1 MG TABLET PO ×2 (08:25→21:33)
[2023-05-31] MEDS: SUMAtriptan succinate 25 MG TABLET PO (09:04)
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
[2023-05-31] MEDS: Nicotine Polacrilex Lozenge 4 MG LOZENGE BUCCAL ×3 (12:17→21:41)
[2023-05-31 19:30] VITALS: BP 119/74; PULSE 84; RESP 15; TEMP 37.2; O2SAT 98
[2023-05-31] MEDS: Zolpidem Tartrate 5 MG TABLET 10 MG PO (21:30)
[2023-05-31] MEDS: Melatonin 3 MG TABLET 9 MG PO (21:31)
[2023-05-31] MEDS: Gabapentin 300 MG CAPSULE PO (21:32)
[2023-05-31] MEDS: Lurasidone HCl 40 MG TABLET PO (21:32)
[2023-05-31] MEDS: QUEtiapine Fumarate 200 MG TABLET PO (21:33)
[2023-05-31] MEDS: Prazosin HCL 5 MG, Prazosin HCL 1 MG 6 MG PO (21:34)
[2023-05-31] MEDS: Pregabalin 100 MG CAPSULE PO (21:34)
[2023-06-01 07:28] VITALS: BP 121/83; PULSE 88; RESP 16; TEMP 36.5; O2SAT 94
[2023-06-01] MEDS: lamoTRIgine 100 MG TABLET 300 MG PO (08:43)
[2023-06-01] MEDS: valACYclovir HCL 1,000 MG TABLET 1000 MG PO ×2 (08:43→21:41)
[2023-06-01] MEDS: Venlafaxine HCl ER 75 MG CAP.ER.24H PO (08:44)
[2023-06-01] MEDS: clonazePAM 1 MG TABLET PO ×2 (08:44→21:41)
[2023-06-01] MEDS: Gabapentin 400 MG CAPSULE PO (08:45)
[2023-06-01] MEDS: Nicotine 21 MG PATCH.TD24 TRANSDERMA (08:45)
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
[2023-06-01] MEDS: Nicotine Polacrilex Lozenge 4 MG LOZENGE BUCCAL ×2 (12:45→21:41)
[2023-06-01] MEDS: hydrOXYzine HCL 25 MG TABLET PO (19:01)
[2023-06-01 20:25] VITALS: BP 139/87; PULSE 72; RESP 16; TEMP 36.6; O2SAT 99
[2023-06-01] MEDS: QUEtiapine Fumarate 200 MG TABLET PO (21:40)
[2023-06-01] MEDS: Pregabalin 100 MG CAPSULE PO (21:40)
[2023-06-01] MEDS: Prazosin HCL 5 MG, Prazosin HCL 1 MG 6 MG PO (21:40)
[2023-06-01] MEDS: Gabapentin 300 MG CAPSULE PO (21:41)
[2023-06-01] MEDS: Lurasidone HCl 40 MG TABLET PO (21:41)
[2023-06-01] MEDS: Zolpidem Tartrate 5 MG TABLET 10 MG PO (21:41)
[2023-06-01] MEDS: Melatonin 3 MG TABLET 9 MG PO (21:41)
[2023-06-02 07:32] VITALS: BP 108/65; PULSE 88; RESP 18; TEMP 36.6; O2SAT 96
[2023-06-02] MEDS: valACYclovir HCL 1,000 MG TABLET 1000 MG PO ×2 (08:26→23:05)
[2023-06-02] MEDS: lamoTRIgine 100 MG TABLET 300 MG PO (08:27)
[2023-06-02] MEDS: clonazePAM 1 MG TABLET PO ×2 (08:27→22:35)
[2023-06-02] MEDS: Venlafaxine HCl ER 75 MG CAP.ER.24H PO (08:28)
[2023-06-02] MEDS: Gabapentin 400 MG CAPSULE PO (08:28)
[2023-06-02] MEDS: Nicotine 21 MG PATCH.TD24 TRANSDERMA (08:29)
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
[2023-06-02] MEDS: Nicotine Polacrilex Lozenge 4 MG LOZENGE BUCCAL ×2 (13:36→23:14)
[2023-06-02 22:27] VITALS: BP 136/67; PULSE 83; RESP 16; TEMP 36.8; O2SAT 96
[2023-06-02] MEDS: Gabapentin 300 MG CAPSULE PO (22:35)
[2023-06-02] MEDS: Pregabalin 100 MG CAPSULE PO (22:35)
[2023-06-02] MEDS: Lurasidone HCl 40 MG TABLET PO (22:36)
[2023-06-02] MEDS: QUEtiapine Fumarate 200 MG TABLET PO (23:06)
[2023-06-02] MEDS: Melatonin 3 MG TABLET 9 MG PO (23:06)
[2023-06-02] MEDS: Prazosin HCL 5 MG, Prazosin HCL 1 MG 6 MG PO (23:06)
[2023-06-02] MEDS: Zolpidem Tartrate 5 MG TABLET 10 MG PO (23:14)
[2023-06-03 08:00] VITALS: BP 104/51; PULSE 78; RESP 14; TEMP 36.6; O2SAT 93
[2023-06-03] MEDS: Nicotine 21 MG PATCH.TD24 TRANSDERMA (09:02)
[2023-06-03] MEDS: Gabapentin 400 MG CAPSULE PO (09:03)
[2023-06-03] MEDS: lamoTRIgine 100 MG TABLET 300 MG PO (09:04)
[2023-06-03] MEDS: clonazePAM 1 MG TABLET PO (09:04)
[2023-06-03] MEDS: valACYclovir HCL 1,000 MG TABLET 1000 MG PO (09:04)
[2023-06-03] MEDS: Venlafaxine HCl ER 75 MG CAP.ER.24H PO (09:14)
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
== END 2023-06-03 11:00 | disposition home or self-care (01) | DRG 881 ==
LOC: HO.ED 14:26 → HO.PADLT16 05-26 13:03
PROVIDERS: Physician Assistant; Admitting Provider Registered Nurse; Emergency Provider Emergency Medicine Emergency Medical Services; Responsible Provider Registered Nurse; Visit Provider Psychiatry & Neurology Psychiatry
DX: F43.21 Adjustment disorder with depressed mood (principal); R45.851 Suicidal ideations; F43.10 Post-traumatic stress disorder, unspecified; F31.32 Bipolar disorder, current episode depressed, moderate; Z71.6 Tobacco abuse counseling; R23.8 Other skin changes; F17.290 Nicotine dependence, other tobacco product, uncomplicated; Z20.822 Contact with and (suspected) exposure to COVID-19; Z79.899 Other long term (current) drug therapy
CPT/HCPCS: 36415; 80053; 80061; 80307; 81001; 84702; 85025; 87635; 93005; 99285; S9485

== ENCOUNTER → 2023-05-26 08:00 | Outpatient (BNV) | payer OTHER, SELFPAY | PROVIDERS: Admitting Provider Registered Nurse; Emergency Provider Emergency Medicine Emergency Medical Services; Visit Provider Internal Medicine Cardiovascular Disease | DX: R45.851 Suicidal ideations (principal) | CPT/HCPCS: 93010 ==

== ENCOUNTER → 2023-05-26 11:46 | Outpatient (BNV) | payer OTHER, SELFPAY | PROVIDERS: Admitting Provider Registered Nurse; Emergency Provider Emergency Medicine Emergency Medical Services; Responsible Provider Registered Nurse; Visit Provider Registered Nurse | DX: F31.32 Bipolar disorder, current episode depressed, moderate (principal); F43.11 Post-traumatic stress disorder, acute; F43.21 Adjustment disorder with depressed mood | CPT/HCPCS: 90792; 99231; 99232; 99238 ==

== ENCOUNTER 2024-05-22 22:23 | Emergency (ER) | payer OTHER, SELFPAY ==
--- NOTE | 2024-05-22 | ECG_ITS ---
Test Reason : TACHYCARDIA Blood Pressure : */* mmHG Vent. Rate : 92 BPM Atrial Rate : 92 BPM P-R Int : 162 ms QRS Dur : 74 ms QT Int : 358 ms P-R-T Axes : 47 23 40 degrees QTcB Int : 442 ms Normal sinus rhythm Normal ECG When compared with ECG of 26-May-2023 08:33, No significant change was found Referred By: Generic ED Physician Electronically Signed By: APRIL MILIAN MD
[2024-05-22 22:27] VITALS: BP 138/95; PULSE 137; RESP 20; TEMP 36.5; O2SAT 96; BMI 33.6
[2024-05-22 23:20] LABS: MANUAL DIFF FLAG NO
[2024-05-22 23:21] LABS: Basophils Absolute Auto 0.1 X10*3/uL (0.0-0.2); Basophils Percent Auto 0.4 % (0-2); Eosinophils Absolute Auto 0.2 X10*3/uL (0.0-0.4); Eosinophils Percent Auto 1.3 % (0-4); Hematocrit 38.5 % (37.0-47.0); Hemoglobin 12.4 g/dl (12.0-16.0); Imm Gran Abs Auto 0.06 X10*3/uL (0.00-0.03); Imm Gran Pct Auto 0.5 % (0.0-0.4); Lymphocytes Absolute Auto 2.4 X10*3/uL (1.2-4.9); Lymphocytes Percent Auto 21.8 % (20-40); Mean Corpuscular HGB Conc 32.2 g/dl (31.0-35.0); Mean Corpuscular Hemoglobin 27.3 pg (27.0-33.0); Mean Corpuscular Volume 84.6 fL (80.0-98.0); Mean Platelet Volume 9.6 fL (9.4-12.3); Monocytes Absolute Auto 0.5 X10*3/uL (0.1-1.2); Monocytes Percent Auto 4.3 % (2-11); Neutrophils Percent Auto 71.7 % (45-73); Platelet Count 332 X10*3/uL (160-400); Red Blood Count 4.55 X10*6/uL (4.20-5.50); Red Cell Distribution Width 16.9 % (11.0-16.0); White Blood Count 11.2 X10*3/uL (4.8-10.8)
[2024-05-22 23:32] VITALS: BP 124/77; PULSE 77; RESP 16; TEMP 36.6; O2SAT 99
[2024-05-22 23:38] LABS: Acetaminophen LAB < 3 mcg/mL (<30); Alanine Aminotransferase 29 U/L (0-31); Albumin Level 4.2 g/dL (3.5-5.0); Alkaline Phosphatase 128 U/L (39-117); Anion Gap 14 (12-20); Aspartate Amino Transferase 27 U/L (5-31); Bilirubin Total 0.3 mg/dL (0.0-1.0); Blood Urea Nitrogen 18 mg/dL (9-16); Carbon Dioxide 26 mmol/L (22-29); Chloride 104 mmol/L (96-108); Creatinine Clr Calc Pharmacy 74.8; Estimated Glomerular Filt Rate > 60; Ethanol < 10 mg/dL; Glucose Random 104 mg/dL (60-115); Potassium 3.9 mmol/L (3.3-5.1); Salicylate < 5.0 mg/dL (15-30); Sodium 140 mmol/L (135-145); Total Protein 6.9 g/dL (6.5-8.0)
[2024-05-23 00:23] LABS: UPreg QC Valid YES; Urine Pregnancy NEGATIVE (NEGATIVE)
[2024-05-23 00:25] LABS: Appearance Urine Cloudy; Color Urine Dark Yellow; Glucose Urine UA Negative (Negative); Leukocyte Esterase Urine Negative (Negative); Nitrite Urine Negative (Negative); PH 5.5 (5.0-9.0); Specific Gravity - Urine >= 1.030 (1.005-1.025); UMIC TRIGGER UA YES; Urine Blood Negative (Negative); Urine Ketones Trace mg/dL (Negative); Urine Protein 30 (1+) mg/dL (Neg-Trace)
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
[2024-05-23 00:35] LABS: Amphetamine Screen Urine POSITIVE (Not Detect); Barbiturates, Urine Not Detected (Not Detect); Benzodiazepines Screen Urine POSITIVE (Not Detect); Buprenorphine Scr Not Detected (Not Detect); Cannabinoid Screen Urine POSITIVE (Not Detect); Cocaine Screen Urine Not Detected (Not Detect); Fentanyl, urine Not Detected (Not Detect); Methadone Screen, Urine Not Detected (Not Detect); Opiate Screen Urine Not Detected (Not Detect); Oxycodone Screen Urine Not Detected (Not Detect); Phencyclidine Screen Urine Not Detected (Not Detect)
[2024-05-23 00:37] LABS: Bacteria Urine Trace (None Seen); Calcium Oxalate Crystals Urine Present; Hyaline Casts Urine 0-2 /LPF (0-2); RBC Urine 0-2 /HPF (0-2); WBC Urine 0-5 /HPF (0-5)
--- NOTE | 2024-05-23 00:42 | PC.NURSE ---
pt came over from the main, pt has tank top on and is willing to remove and placed with her belongings. Steady gait, pt oriented to the pod. pt calm and cooperative.
--- NOTE | 2024-05-23 00:44 | PC.NURSE ---
pt had a necklace on it has been removed.
[2024-05-23] MEDS: Zolpidem Tartrate 5 MG TABLET 10 MG PO ×2 (01:55→02:26)
--- NOTE | 2024-05-23 02:15 | MHC.EDTECH ---
belongings placed in [place] by security. no belongings list completed by staff prior to arrival to pod. t/w had to put necklace and tank top pt came over to the pod with in her belongings in [place]. bottom shelf/labeled with purple backpack.
[2024-05-23] MEDS: Lurasidone HCl 40 MG TABLET PO (03:08)
[2024-05-23 03:59] VITALS: BP 124/77
[2024-05-23] MEDS: Prazosin HCL 1 MG CAPSULE PO (03:59)
[2024-05-23] MEDS: Prazosin HCL 5 MG CAPSULE PO (03:59)
--- NOTE | 2024-05-23 08:00 | PC.NURSE ---
Assumed care of patient at 0645, patient appears to be in no apparent distress this am, speaking with CARE team at this time, calm and cooperative. Continue plan of care for CARE team eval dispo
[2024-05-23] MEDS: clonazePAM 1 MG TABLET PO (08:50)
[2024-05-23] MEDS: Gabapentin 400 MG CAPSULE PO (08:50)
[2024-05-23] MEDS: lamoTRIgine 100 MG TABLET 300 MG PO (08:50)
[2024-05-23] MEDS: Pregabalin 100 MG CAPSULE PO (08:50)
[2024-05-23] MEDS: Dextroamphetamine/Amphetamine XR 10 MG CAP.ER.24H 20 MG PO (11:49)
--- NOTE | 2024-05-23 12:21 | MHC.CARE ---
Pt does not meet IPL[facility] at this time. She is declining an ACCS referral/admission and requesting to be discharged. There is no imminent risk and Pt denies SI and HI. Provider in agreement.
[2024-05-23 12:25] VITALS: BP 124/74; PULSE 69; RESP 16; TEMP 36.7; O2SAT 99
== END 2024-05-23 12:28 | disposition home or self-care (01) ==
PROVIDERS: Emergency Medicine; Emergency Provider Emergency Medicine Emergency Medical Services
DX: F43.10 Post-traumatic stress disorder, unspecified (principal); R00.0 Tachycardia, unspecified; F32.A Depression, unspecified; R44.0 Auditory hallucinations; Z63.1 Problems in relationship with in-laws; Z79.899 Other long term (current) drug therapy
CPT/HCPCS: 36415; 80053; 80143; 80179; 80307; 81001; 81025; 85025; 93005; 99285; S9485

== ENCOUNTER → 2024-05-22 22:55 | Outpatient (BNV) | payer OTHER, SELFPAY | PROVIDERS: Emergency Provider Emergency Medicine Emergency Medical Services; Visit Provider Internal Medicine Cardiovascular Disease | DX: R00.0 Tachycardia, unspecified (principal) | CPT/HCPCS: 93010 ==